=== PATIENT | female | born 1985 | race Caucasian/White ===

== ENCOUNTER 2016-08-29 09:26 | Outpatient (CLI) | payer MEDICAID ==
[~2016-08-29] VITALS: Ht 175.3 cm; Wt 103.0 kg
[~2016-08-29 09:26] MED LIST: ACHD5005 PO; ALPR0.254; BPR100T PO; CEFU500T PO; CLIN300C3 PO; CYCL10TA9 PO; HYDR-3720 PO; HYDR1TAB PO; IBP800T PO; KETO-22 PO; METR500T PO; NF-VYVAN20; ONDA-42 PO; ONDAN4ODT PO; PRM25T PO; TRM50T PO
[2016-08-29 09:30] VITALS: BP 128/67
--- OUTSIDE RECORDS SUMMARY | 2016-08-29 09:30 | XMS REPORT | Continuity of Care Document ---
Author Author [facility] Organization [facility] Address Unknown Phone Unavailable Care Team Providers Care Awning Erector Name Role Phone JASWINDER STATON MD PCP Insurance Providers Payer Name Policy Number Subscriber Name Relationship [facility] [id number] Minh Monroe 18 Self / Same As Patient Advance Directives Directive Response Recorded Date/Time Advance Directives No 08/02/16 5:00pm Health Care Power of Dry Chain Operator No 08/02/16 5:00pm Organ Donor Yes 08/02/16 5:00pm Resuscitation Status Full Code 08/02/16 5:00pm Chief Complaint and Reason for Visit Chief Complaint Abdominal/GI Problems Reason for Visit Urinary tract infection Problems Active Problems Medical Problem Onset Date Status Chin contusion Unknown Acute Chin contusion Unknown Acute Urinary tract infection Unknown Acute Medications Past Home Medications Medication Directions Ordered Status Ibuprofen 800 Mg Tab, 800 Mg Oral Three Times A Day 01/08/10 Discontinued Tramadol Hcl 50 Mg Tab, 50 Mg Oral Twice A Day as needed 01/08/10 Discontinued Cyclobenzaprine Hcl (Flexeril) 10 Mg Tablet, 1 Each Oral Q8hr Prn 12/04/10 Discontinued Acetaminophen/Hydrocodone Bitart 1 Each Tablet, 1 - 2 Each Oral Every 6 Hours as needed 12/04/10 Discontinued Bupropion Hcl 100 Mg Tablet, 1 Tab Oral Twice A Day 04/07/11 Discontinued Ondansetron Hcl 4 Mg Tab, 4 Mg Oral Every 4HRS as needed 05/24/11 Discontinued Promethazine Hcl 25 Mg Tablet, 1 Tab Oral Four Times Daily as needed Discontinued Metronidazole 500 Mg Tab, 1 Each Oral Three Times A Day 10/30/11 Discontinued Ondansetron Hcl 4 Mg Tab, 4 Mg Oral Every 4HRS 04/17/13 Discontinued Ketorolac Tromethamine 10 Mg Tablet, 10 Mg Oral Every 6 Hours as needed 04/17 Discontinued Acetaminophen/Hydrocodone Bitart 1 Each Tablet, 1 Tab Oral Every 4HRS as needed 05/05/13 Discontinued Acetaminophen/Hydrocodone Bitart 1 Each Tablet, 1 - 2 Each Oral Q4hr Prn Discontinued Alprazolam 0.25 Mg Tablet, 12/30/14 Discontinued Lisdexamfetamine Dimesylate 20 Mg Capsule, 12/30/14 Discontinued Acetaminophen/Hydrocodone Bitart ([place]) 1 Each Tablet, 0.5-1 Each Oral Q4- 6HR as needed for Pain 12/30/14 Discontinued Clindamycin Hcl 300 Mg Capsule, 1 Each Oral Give Every 6 Hr On Schedule 12/30 Discontinued Acetaminophen/Hydrocodone Bitart ([place]) 1 Each Tablet, 0.5-1 Each Oral Q4- 6HR as needed for Pain 12/30/14 Discontinued Cefuroxime Axetil 500 Mg Tablet, 500 Mg Oral Twice A Day 08/02/16 Discontinued Social History Social History Problem Response Recorded Date/Time Alcohol Use Occasionally Uses 12/30/2014 2:02pm Recreational Drug Use No 12/30/2014 2:02pm Recent Foreign Travel No 08/02/2016 4:50pm Recent Infectious Disease Exposure No 08/02/2016 4:50pm Smoking Status Current Everyday Smoker 08/02/2016 5:00pm Query Response Start Date Stop Date Smoking Status Current Everyday Smoker Hospital Discharge Instructions No hospital discharge instructions. Plan of Care Discharge Date 08/02/16 7:40pm Disposition 01 HOME, SELF-CARE Condition at Discharge Stable Instructions/Education Provided Urinary Tract Infection, Adult (DC) Prescriptions See Medication Section Referrals JASWINDER STATON MD - Primary Care Physician Additional Instructions/Education 1. Antibiotics as directed 2. Follow-up with your doctor next week 3.All discharge instructions reviewed with patient and/or family. Voiced understanding. Functional Status No functional status results. Allergies, Adverse Reactions, Alerts No known allergies. Immunizations No immunization records. Vital Signs Acute Vital Signs Vital Response Date/Time Temperature (Fahrenheit) 97.5 degrees F (97.6 - 99.5) 08/02/2016 4:50pm Temperature (Calculated Celsius) 36.11392 degrees C (36.4 - 37.5) 08/02/2016 4:50pm Pulse Rate (adult) 70 bpm (60 - 90) 08/02/2016 4:50pm Respiratory Rate 16 bpm (12 - 24) 08/02/2016 4:50pm O2 Sat by Pulse Oximetry 98 % (88 - 100) 08/02/2016 4:50pm Blood Pressure 127/92 mm Hg 08/02/2016 4:50pm Blood Pressure Mean 104 mm Hg 08/02/2016 4:50pm Pain Numeric Pain Scale 3 08/02/2016 4:50pm Height (Feet) 5 feet 08/02/2016 4:50pm Height (Inches) 9 inches 08/02/2016 4:50pm Height (Calculated Centimeters) 175.827068 cm 08/02/2016 4:50pm Weight (Pounds) 210 pounds 08/02/2016 4:50pm Weight (Calculated Kilograms) 95.799809 kilograms 08/02/2016 4:50pm Capillary Refill Capillary Refill Less Than 3 Seconds 08/02/2016 4:50pm Height 5 ft 9 in Weight 210 lb Body Mass Index 31.0 kg/m^2 Results Laboratory Results Test Name Result Units Flags Reference Collection Date/Time Result Date/ Time Comments White Blood Count 8.9 10^3/uL 4.3-11.0 08/02/2016 5:34pm 08/02/2016 5: 40pm Red Blood Count 3.82 10^6/uL L 4.35-5.85 08/02/2016 5:34pm 08/02/2016 5: 40pm Hemoglobin 11.9 G/DL 11.5-16.0 08/02/2016 5:34pm 08/02/2016 5:40pm Hematocrit 34 % L 35-52 08/02/2016 5:34pm 08/02/2016 5:40pm Mean Corpuscular Volume 90 FL 80-99 08/02/2016 5:34pm 08/02/2016 5: 40pm Mean Corpuscular Hemoglobin 31 PG 25-34 08/02/2016 5:34pm 08/02/2016 5: 40pm Mean Corpuscular Hemoglobin Concent 35 G/DL 32-36 08/02/2016 5:34pm 05/2016 5:40pm Red Cell Distribution Width 14.2 % 10.0-14.5 08/02/2016 5:34pm 2015 5:40pm Platelet Count 232 10^3/uL 130-400 08/02/2016 5:34pm 08/02/2016 5:40pm Mean Platelet Volume 10.4 FL 7.4-10.4 08/02/2016 5:34pm 08/02/2016 5: 40pm Neutrophils (%) (Auto) 68 % 42-75 08/02/2016 5:34pm 08/02/2016 5:40pm Lymphocytes (%) (Auto) 23 % 12-44 08/02/2016 5:34pm 08/02/2016 5:40pm Monocytes (%) (Auto) 8 % 0-12 08/02/2016 5:34pm 08/02/2016 5:40pm Eosinophils (%) (Auto) 1 % 0-10 08/02/2016 5:34pm 08/02/2016 5:40pm Basophils (%) (Auto) 0 % 0-10 08/02/2016 5:34pm 08/02/2016 5:40pm Neutrophils # (Auto) 6.0 X 10^3 1.8-7.8 08/02/2016 5:34pm 08/02/2016 5: 40pm Lymphocytes # (Auto) 2.1 X 10^3 1.0-4.0 08/02/2016 5:34pm 08/02/2016 5: 40pm Monocytes # (Auto) 0.7 X 10^3 0.0-1.0 08/02/2016 5:34pm 08/02/2016 5: 40pm Eosinophils # (Auto) 0.1 10^3/uL 0.0-0.3 08/02/2016 5:34pm 08/02/2016 5 :40pm Basophils # (Auto) 0.0 10^3/uL 0.0-0.1 08/02/2016 5:34pm 08/02/2016 5: 40pm Urine Color YELLOW 08/02/2016 5:25pm 08/02/2016 5:43pm Urine Clarity CLEAR 08/02/2016 5:25pm 08/02/2016 5:43pm Urine pH 7 5-9 08/02/2016 5:25pm 08/02/2016 5:43pm Urine Specific [place] 1.010 * 1.016-1.022 08/02/2016 5:25pm 2015 5:43pm Urine Protein NEGATIVE NEGATIVE 08/02/2016 5:pm 08/02/2016 5:43pm Urine Glucose (UA) NEGATIVE NEGATIVE 08/02/2016 5:25pm 08/02/2016 5: 43pm Urine RBC (Auto) 1+ * NEGATIVE 08/02/2016 5:pm 08/02/2016 5:43pm Urine Ketones NEGATIVE NEGATIVE 08/02/2016 5:25pm 08/02/2016 5:43pm Urine Nitrite NEGATIVE NEGATIVE 08/02/2016 5:pm 08/02/2016 5:43pm Urine Bilirubin NEGATIVE NEGATIVE 08/02/2016 5:pm 08/02/2016 5: 43pm Urine Urobilinogen NORMAL MG/DL NORMAL 08/02/2016 5:25pm 08/02/2016 5: 43pm Urine Leukocyte Esterase 1+ * NEGATIVE 08/02/2016 5:pm 08/02/2016 5: 43pm Urine RBC NONE /HPF 08/02/2016 5:pm 08/02/2016 5:43pm Urine WBC 10-25 /HPF * 08/02/2016 5:25pm 08/02/2016 5:43pm Urine Bacteria FEW /HPF * 08/02/2016 5:pm 08/02/2016 5:43pm Urine Squamous Epithelial Cells 5-10 /HPF 08/02/2016 5:25pm 2015 5:43pm Urine Crystals NONE /LPF 08/02/2016 5:25pm 08/02/2016 5:43pm Urine Casts NONE /LPF 08/02/2016 5:25pm 08/02/2016 5:43pm Urine Mucus NEGATIVE /LPF 08/02/2016 5:25pm 08/02/2016 5:43pm Urine Culture Indicated YES 08/02/2016 5:25pm 08/02/2016 5:43pm Procedures No known history of procedures. Encounters Encounter Location Arrival/Admit Date Discharge/Depart Date Attending Provider Departed Emergency Room [facility] 08/02/16 4:35pm 08/02 7:40pm ROMINA LEDESMA APRN Recent Diagnosis
[2016-08-29] MEDS ORDERED: ONDANSETRON 4 MG/2 ML (SDV) Z0FRAN IVP ONE (10:00)
[2016-08-29] MEDS ORDERED: D5 LR IV SOLUTION 1,000 ML IV SCH (10:00)
[2016-08-29 10:01] LABS: BASOPHILS % (AUTO) 0 % (0-10); BILIRUBIN,URINE NEGATIVE (NEGATIVE); EOSINOPHILS # (AUTO) 0.1 10^3/uL (0.0-0.3); EOSINOPHILS % (AUTO) 1 % (0-10); KETONES,URINE NEGATIVE (NEGATIVE); LEUKOCYTE ESTERASE ,URINE NEGATIVE (NEGATIVE); LYMPHOCYTES # (AUTO) 1.6 X 10^3 (1.0-4.0); LYMPHOCYTES % (AUTO) 16 % (12-44); MEAN CORPUSCULAR HEMOGLOBIN 31 PG (25-34); MEAN CORPUSCULAR HGB CONC 34 G/DL (32-36); MEAN CORPUSCULAR VOLUME 91 FL (80-99); MEAN PLATELET VOLUME 11.2 FL (7.4-10.4); MONOCYTES # (AUTO) 0.8 X 10^3 (0.0-1.0); MONOCYTES % (AUTO) 9 % (0-12); NEUTROPHILS % (AUTO) 74 % (42-75); NITRITE,URINE NEGATIVE (NEGATIVE); PH,URINE 8 (5-9); PLATELET COUNT 238 10^3/uL (130-400); PROTEIN,URINE NEGATIVE (NEGATIVE); RED BLOOD COUNT 3.61 10^6/uL (4.35-5.85); RED CELL DISTRIBUTION WIDTH 14.4 % (10.0-14.5); UROBILINOGEN,URINE NORMAL (NORMAL); WHITE BLOOD COUNT 9.5 10^3/uL (4.3-11.0)
[2016-08-29 10:13] LABS: ALANINE AMINOTRANSFERASE 10 U/L (0-55); ALBUMIN 3.1 G/DL (3.2-4.5); ANION GAP 9 MMOL/L (5-14); ASPARTATE AMINO TRANSFERASE 19 U/L (5-34); BILIRUBIN,TOTAL 0.2 MG/DL (0.1-1.0); BLOOD UREA NITROGEN 4 MG/DL (7-18); BUN/CREATININE RATIO 8; CARBON DIOXIDE 16 MMOL/L (21-32); CHLORIDE 109 MMOL/L (98-107); CREATININE SERUM 0.52 MG/DL (0.60-1.30); GFR ESTIMATED > 60; GLUCOSE 89 MG/DL (70-105); POTASSIUM 4.1 MMOL/L (3.6-5.0); SODIUM 134 MMOL/L (135-145); TOTAL PROTEIN 5.7 G/DL (6.4-8.2)
[2016-08-29 10:25] LABS: WBC,URINE RARE /HPF
--- NOTE | 2016-09-01 12:26 | Physician Query-Final Dx ---
ABELARDO MCKEE 09/01/16 1226: Clinic Account Progress/Dx Physician Query: Please give diagnosis Date of Service Aug 29, 2016 at 09:26 JASWINDER STATON MD 09/01/16 1659: Clinic Account Progress/Dx DIAGNOSIS: Diagnosis hyperemesis / dehydration ABELARDO MCKEE Sep 01, 2016 12:26 JASWINDER STATON MD Sep 01, 2016 16:59
[2016-11-24] MEDS ORDERED: OXYC-465 PO (07:51)
[2016-11-24] MEDS ORDERED: CEPH250C PO (07:51)
[2016-11-24] MEDS ORDERED: DOCU100C37 PO (07:51)
[2016-11-24] MEDS ORDERED: IBUP-1780 PO (07:51)
== END 2016-08-29 11:30 | disposition home or self-care (01) ==
LOC: WSo 09:26 → LDRP 09:27 → WSo 11:30
PROVIDERS: ATTEND Obstetrics & Gynecology
DX: O21.1 Hyperemesis gravidarum with metabolic disturbance (principal)
CPT/HCPCS: 36415; 80053; 81000; 85025

== ENCOUNTER 2016-09-17 20:15 | Outpatient (CLI) | payer MEDICAID ==
[~2016-09-17] VITALS: Ht 175.3 cm; Wt 105.8 kg
--- OUTSIDE RECORDS SUMMARY | 2016-09-17 20:19 | XMS REPORT | Continuity of Care Document ---
Author Author [facility] Organization [facility] Address Unknown Phone Unavailable Care Team Providers Care Assurance Specialist Name Role Phone JASWINDER STATON MD PCP Insurance Providers Payer Name Policy Number Subscriber Name Relationship [facility] [id number] Minh Monroe 17 Self / Same As Patient Advance Directives Directive Response Recorded Date/Time Advance Directives No 08/02/16 5:00pm Health Care Power of Farm Instructor No 08/02/16 5:00pm Organ Donor Yes 08/02/16 [...] 20 Mg Capsule, 12/30/14 Discontinued Acetaminophen/Hydrocodone Bitart ([place]) 1 Each Tablet, 0.5-1 Each Oral Q4- 6HR as needed for Pain 12/30/14 Discontinued Clindamycin Hcl 300 Mg Capsule, 1 Each Oral Give Every 6 Hr On Schedule 12/30 Discontinued Acetaminophen/Hydrocodone Bitart ([place]) 1 Each Tablet, 0.5-1 Each Oral Q4- [...] - 99.5) 08/02/2016 4:50pm Temperature (Calculated Celsius) 36.19000 degrees C (36.4 - 37.5) 08/02/2016 4:50pm [...] 9 inches 08/02/2016 4:50pm Height (Calculated Centimeters) 175.452694 cm 08/02/2016 4:50pm Weight (Pounds) 210 pounds 08/02/2016 4:50pm Weight (Calculated Kilograms) 95.459167 kilograms 08/02/2016 4:50pm Capillary Refill Capillary Refill [...] 5-9 08/02/2016 5:25pm 08/02/2016 5:43pm Urine Specific [place] 1.010 * 1.016-1.022 08/02/2016 5:25pm 2015 5:43pm [...] Date Attending Provider Departed Emergency Room [facility] 08/02/16 4:35pm 08/02 7:40pm ROMINA LEDESMA APRN Recent Diagnosis
[2016-09-17 20:39] VITALS: BP 116/55
[2016-09-17] MEDS ORDERED: PREN1TAB86 PO (21:02)
[2016-09-17] MEDS ORDERED: OMEP20TA33 PO (21:02)
[2016-09-17] MEDS ORDERED: FOLI1TAB24 PO (21:02)
[2016-09-17 21:57] VITALS: BP 116/55
--- NOTE | 2016-09-18 09:05 | Physician Query-Final Dx ---
KATHI LESLIE 09/18/16 0905: Clinic Account Progress/Dx Physician Query: Please give diagnosis Date of Service Sep 17, 2016 at 20:15 JASWINDER STATON MD 09/18/16 1306: Clinic Account Progress/Dx DIAGNOSIS: Diagnosis pulse labor in a twin at 26 weeks gestation KATHI LESLIE Sep 18, 2016 09:05 JASWINDER STATON MD Sep 18, 2016 13:06
== END 2016-09-17 21:57 | disposition home or self-care (01) ==
LOC: WSo 20:15 → LDRP 20:15 → WSo 21:57
PROVIDERS: ATTEND Obstetrics & Gynecology
DX: O30.002 Twin pregnancy, unspecified number of placenta and unspecified number of amniotic sacs, second trimester (principal); Z3A.26 26 weeks gestation of pregnancy
CPT/HCPCS: 90471; 99213

== ENCOUNTER 2016-10-06 21:46 | Outpatient (CLI) | payer MEDICAID ==
[~2016-10-06] VITALS: Ht 175.3 cm; Wt 109.0 kg
[~2016-10-06 21:46] MED LIST changes: +FOLI1TAB24 PO; +OMEP20TA33 PO; +PREN1TAB86 PO
--- OUTSIDE RECORDS SUMMARY | 2016-10-06 21:50 | XMS REPORT | Continuity of Care Document ---
Author Author [facility] Organization [facility] Address Unknown Phone Unavailable Care Team Providers Care Motion Picture Narrator Name Role Phone JASWINDER STATON MD PCP Insurance Providers Payer Name Policy Number Subscriber Name Relationship [facility] [id number] Minh Monroe 18 Self / Same As Patient Advance Directives Directive Response Recorded Date/Time Advance Directives No 08/02/16 5:00pm Health Care Power of Retail Associate Manager Bilingual No 08/02/16 5:00pm Organ Donor Yes 08/02/16 [...] 20 Mg Capsule, 12/30/14 Discontinued Acetaminophen/Hydrocodone Bitart ([place]) 1 Each Tablet, 0.5-1 Each Oral Q4- 6HR as needed for Pain 12/30/14 Discontinued Clindamycin Hcl 300 Mg Capsule, 1 Each Oral Give Every 6 Hr On Schedule 12/30 Discontinued Acetaminophen/Hydrocodone Bitart ([place]) 1 Each Tablet, 0.5-1 Each Oral Q4- [...] - 99.5) 08/02/2016 4:50pm Temperature (Calculated Celsius) 36.51958 degrees C (36.4 - 37.5) 08/02/2016 4:50pm [...] 9 inches 08/02/2016 4:50pm Height (Calculated Centimeters) 175.630214 cm 08/02/2016 4:50pm Weight (Pounds) 210 pounds 08/02/2016 4:50pm Weight (Calculated Kilograms) 95.073552 kilograms 08/02/2016 4:50pm Capillary Refill Capillary Refill [...] 5-9 08/02/2016 5:25pm 08/02/2016 5:43pm Urine Specific [place] 1.010 * 1.016-1.022 08/02/2016 5:25pm 2015 5:43pm [...] Date Attending Provider Departed Emergency Room [facility] 08/02/16 4:35pm 08/02 7:40pm ROMINA LEDESMA APRN Recent Diagnosis
[2016-10-06 22:02] VITALS: BP 120/61
[2016-10-06] MEDS ORDERED: D5 LR IV SOLUTION 1,000 ML IV ONE (22:30)
[2016-10-06] MEDS ORDERED: NITROFURANTOIN 100 MG (MACROBID) CAPSULE PO ONE (22:30)
[2016-10-06 22:52] LABS: BILIRUBIN,URINE NEGATIVE (NEGATIVE); KETONES,URINE NEGATIVE (NEGATIVE); LEUKOCYTE ESTERASE ,URINE 3+ (NEGATIVE); NITRITE,URINE NEGATIVE (NEGATIVE); PH,URINE 7 (5-9); PROTEIN,URINE 1+ (NEGATIVE); UROBILINOGEN,URINE NORMAL (NORMAL)
[2016-10-06 22:53] LABS: RENAL EPITHELIAL CELLS,URINE RARE /HPF; WBC,URINE 25-50 /HPF
[2016-10-07 00:13] VITALS: BP 117/63
[2016-10-07] MEDS ORDERED: NITR-65 PO (00:35)
--- NOTE | 2016-10-07 11:36 | Physician Query-Final Dx ---
KATHI LESLIE 10/07/16 1136: Clinic Account Progress/Dx Physician Query: Please give diagnosis Date of Service Oct 06, 2016 at 21:46 JASWINDER STATON MD 10/07/16 1322: Clinic Account Progress/Dx DIAGNOSIS: Diagnosis false labor KATHI LESLIE Oct 07, 2016 11:36 JASWINDER STATON MD Oct 07, 2016 13:22
== END 2016-10-07 00:42 | disposition home or self-care (01) ==
LOC: WSo 21:46 → LDRP 21:46 → WSo 10-07 00:42
PROVIDERS: ATTEND Obstetrics & Gynecology
DX: O47.02 False labor before 37 completed weeks of gestation, second trimester (principal); Z3A.29 29 weeks gestation of pregnancy
CPT/HCPCS: 81000; 87088; 96360; 96361; 99214

== ENCOUNTER 2016-10-31 18:45 | Outpatient (CLI) | payer MEDICAID ==
[~2016-10-31] VITALS: Ht 172.7 cm; Wt 116.1 kg
[~2016-10-31 18:45] MED LIST changes: +NITR-65 PO
--- OUTSIDE RECORDS SUMMARY | 2016-10-31 18:49 | XMS REPORT | Continuity of Care Document ---
Author Author [facility] Organization [facility] Address Unknown Phone Unavailable Care Team Providers Care Rn Diabetes Name Role Phone JASWINEDR STATON MD PCP Insurance Providers Payer Name Policy Number Subscriber Name Relationship [facility] [id number] Minh Monroe 17 Self / Same As Patient Advance Directives Directive Response Recorded Date/Time Advance Directives No 08/02/16 5:00pm Health Care Power of Nail Technician Teacher No 08/02/16 5:00pm Organ Donor Yes 08/02/16 [...] 20 Mg Capsule, 12/30/14 Discontinued Acetaminophen/Hydrocodone Bitart ([place]) 1 Each Tablet, 0.5-1 Each Oral Q4- 6HR as needed for Pain 12/30/14 Discontinued Clindamycin Hcl 300 Mg Capsule, 1 Each Oral Give Every 6 Hr On Schedule 12/30 Discontinued Acetaminophen/Hydrocodone Bitart ([place]) 1 Each Tablet, 0.5-1 Each Oral Q4- [...] - 99.5) 08/02/2016 4:50pm Temperature (Calculated Celsius) 36.63923 degrees C (36.4 - 37.5) 08/02/2016 4:50pm [...] 9 inches 08/02/2016 4:50pm Height (Calculated Centimeters) 175.629739 cm 08/02/2016 4:50pm Weight (Pounds) 210 pounds 08/02/2016 4:50pm Weight (Calculated Kilograms) 95.685103 kilograms 08/02/2016 4:50pm Capillary Refill Capillary Refill [...] 5-9 08/02/2016 5:25pm 08/02/2016 5:43pm Urine Specific [place] 1.010 * 1.016-1.022 08/02/2016 5:25pm 2015 5:43pm [...] Date Attending Provider Departed Emergency Room [facility] 08/02/16 4:35pm 08/02 7:40pm ROMINA LEDESMA APRN Recent Diagnosis
[2016-10-31 18:50] VITALS: BP 123/77
--- NOTE | 2016-11-03 10:25 | Physician Query-Final Dx ---
ABELARDO MCKEE 11/03/16 1025: Clinic Account Progress/Dx Physician Query: Please give diagnosis Date of Service Oct 31, 2016 at 18:45 JASWINDER STATON MD 11/03/16 1242: Clinic Account Progress/Dx DIAGNOSIS: Diagnosis false labor RYLEE,ABELARDO Nov 03, 2016 10:25 JASWINDER STATON MD Nov 03, 2016 12:42
[2016-11-24] MEDS ORDERED: CEPH250C PO (07:51)
[2016-11-24] MEDS ORDERED: DOCU100C37 PO (07:51)
[2016-11-24] MEDS ORDERED: IBUP-1780 PO (07:51)
[2016-11-24] MEDS ORDERED: OXYC-465 PO (07:51)
== END 2016-10-31 20:45 | disposition home or self-care (01) ==
LOC: LDRP 18:45 → WSo 18:45
PROVIDERS: ATTEND Obstetrics & Gynecology
DX: O47.03 False labor before 37 completed weeks of gestation, third trimester (principal); O30.003 Twin pregnancy, unspecified number of placenta and unspecified number of amniotic sacs, third trimester; Z3A.32 32 weeks gestation of pregnancy
CPT/HCPCS: 99213

== ENCOUNTER 2016-11-13 19:27 | Outpatient (CLI) | payer MEDICAID ==
[~2016-11-13] VITALS: Ht 172.7 cm; Wt 115.7 kg
[2016-11-13 19:44] VITALS: BP 115/67
[2016-11-13 19:56] LABS: BILIRUBIN,URINE NEGATIVE (NEGATIVE); KETONES,URINE NEGATIVE (NEGATIVE); LEUKOCYTE ESTERASE ,URINE 1+ (NEGATIVE); NITRITE,URINE NEGATIVE (NEGATIVE); PH,URINE 6.5 (5-9); PROTEIN,URINE NEGATIVE (NEGATIVE); UROBILINOGEN,URINE NORMAL (NORMAL)
[2016-11-13] MEDS ORDERED: BETAMETHASONE ACE/NA PHOS 6 MG/ML (CELESTONE SOLUSPAN) IM SCH (21:00)
--- NOTE | 2016-11-14 08:01 | Physician Query-Final Dx ---
ABELARDO MCKEE 11/14/16 0801: Clinic Account Progress/Dx Physician Query: Please give diagnosis Date of Service Nov 13, 2016 at 19:27 LORENZA ANGELES DO 11/14/16 0828: Clinic Account Progress/Dx DIAGNOSIS: Diagnosis 35 week IUP Uterine cramping ABELARDO MCKEE Nov 14, 2016 08:01 LORENZA ANGELES DO Nov 14, 2016 08:28
[2016-11-24] MEDS ORDERED: DOCU100C37 PO (07:51)
[2016-11-24] MEDS ORDERED: IBUP-1780 PO (07:51)
[2016-11-24] MEDS ORDERED: CEPH250C PO (07:51)
[2016-11-24] MEDS ORDERED: OXYC-465 PO (07:51)
== END 2016-11-13 22:10 | disposition home or self-care (01) ==
LOC: DELPENDDIS → LDRP 19:27 → WSo 19:27
PROVIDERS: ATTEND Obstetrics & Gynecology
DX: O47.03 False labor before 37 completed weeks of gestation, third trimester (principal); O30.003 Twin pregnancy, unspecified number of placenta and unspecified number of amniotic sacs, third trimester; Z3A.35 35 weeks gestation of pregnancy
CPT/HCPCS: 81000; 96372; 99213

== ENCOUNTER 2016-11-14 20:07 | Outpatient (CLI) | payer MEDICAID ==
[~2016-11-14] VITALS: Ht 172.7 cm; Wt 117.5 kg
[2016-11-14 20:25] VITALS: BP 119/63
[2016-11-14] MEDS ORDERED: BETAMETHASONE ACE/NA PHOS 6 MG/ML (CELESTONE SOLUSPAN) ONE (20:29)
[2016-11-14] MEDS ORDERED: BETAMETHASONE ACE/NA PHOS 6 MG/ML (CELESTONE SOLUSPAN) IM SCH ×2 (20:30→20:45)
--- NOTE | 2016-11-17 14:03 | Physician Query-Final Dx ---
ABELARDO MCKEE 11/17/16 1403: Clinic Account Progress/Dx Physician Query: Please give diagnosis Date of Service Nov 14, 2016 at 20:07 LORENZA ANGELES DO 11/17/16 1643: Clinic Account Progress/Dx DIAGNOSIS: Diagnosis 35 week twin Pelvic pressure 2nd BMZ injection ABELARDO MCKEE Nov 17, 2016 14:03 LORENZA ANGELES DO Nov 17, 2016 16:43
[2016-11-24] MEDS ORDERED: OXYC-465 PO (07:51)
[2016-11-24] MEDS ORDERED: IBUP-1780 PO (07:51)
[2016-11-24] MEDS ORDERED: CEPH250C PO (07:51)
[2016-11-24] MEDS ORDERED: DOCU100C37 PO (07:51)
== END 2016-11-14 20:57 | disposition home or self-care (01) ==
LOC: DELPENDDIS → WSo 20:07
PROVIDERS: ATTEND Obstetrics & Gynecology
DX: O30.003 Twin pregnancy, unspecified number of placenta and unspecified number of amniotic sacs, third trimester (principal); O99.89 Other specified diseases and conditions complicating pregnancy, childbirth and the puerperium; R10.2 Pelvic and perineal pain; Z3A.35 35 weeks gestation of pregnancy
CPT/HCPCS: 96372

== ENCOUNTER 2016-11-20 19:54 | Observation (INO) | payer MEDICAID ==
[~2016-11-20] VITALS: Ht 172.7 cm; Wt 115.2 kg
[2016-11-20 20:05] VITALS: BP 135/75
[2016-11-20 20:30] VITALS: BP 133/74
[2016-11-20 20:43] LABS: BILIRUBIN,URINE NEGATIVE (NEGATIVE); KETONES,URINE NEGATIVE (NEGATIVE); LEUKOCYTE ESTERASE ,URINE 1+ (NEGATIVE); NITRITE,URINE NEGATIVE (NEGATIVE); PH,URINE 6 (5-9); PROTEIN,URINE 2+ (NEGATIVE); UROBILINOGEN,URINE 1 MG/DL (NORMAL)
[2016-11-20 21:05] LABS: PROTEIN/CREATININE RATIO 0.25
[2016-11-20] MEDS ORDERED: D5 LR IV SOLUTION 1,000 ML IV ONE (21:35)
[2016-11-20] MEDS: D5 LR IV SOLUTION 1,000 ML IV SCH (22:07)
[2016-11-20 22:32] VITALS: BP 126/68
[2016-11-21] MEDS: D5 LR IV SOLUTION 1,000 ML IV SCH (05:59)
--- NOTE | 2016-11-21 07:49 | Discharge Instructions ---
Discharge Instructions Discharge Medications New, Converted or Re-Newed RX: Other Patient Instructions Patient Instructions: as directed Return to The Hospital For: as directed Activity & Diet Discharge Diet: No Restrictions Activity as Tolerated: Yes Orders-Post D/C & Referrals return to clinic as scheduled and return to clinic promptly for any signs symptoms and indications of labor JASWINDER STATON MD Nov 21, 2016 7:49 am
--- NOTE | 2016-11-21 07:52 | History & Physical ---
History and Physical Vital Signs Date Time Temp Pulse Resp B/P (MAP) Pulse Ox O2 Delivery O2 Flow Rate FiO2 11/20/16 22:32 96 18 126/68 Room Air 11/20/16 20:30 105 18 133/74 Room Air 11/20/16 20:05 97.1 110 18 135/75 Room Air this patient is a 31-year-old white female with an EDC of 4 3017 putting her at about 35-1/2 weeks gestation now. She is with Monocryl chorionic dye amniotic twins. Percent with complaint of pain and contractions. She was found to be joanna with some regularity. She was observed and hydrated through the night her contractions have now resolved. She denies rupture membranes or bleeding. She's had no other problems with this . Allergies are none Occasion her vitamins iron folic acid Zantac Medical social surgical obstetric histories are per the antepartum record HEENT exam is normal Neck supple no lymphadenopathy or thyromegaly Abdomen is gravid soft nontender nondistended Extremities show clubbing cyanosis. There is no Homans sign. Pelvic exam per the nurse shows a cervix is maybe 1 cm and thick and has shown no change release manager the period of observation. signs are stable. Patient is afebrile. Assessment and plan late at 35-1/2 weeks gestation with monochorionic diamniotic twins as patient's contractions have resolved we will allow discharge home with follow up in clinic. labor with twins at 35-1/2 weeks gestation Allergies and Home Medications Allergies Coded Allergies: No Known Drug Allergies (Verified , 11/14/16) Home Medications Folic Acid 1 Mg Tablet, 1 MG PO DAILY, (Reported) Omeprazole Magnesium 20 Mg Tablet., 20 MG PO DAILY, (Reported) Vit W-Ca,Fe,FA(<1 mg) 1 Each Tablet, 1 EACH PO DAILY, (Reported) JASWINDER STATON MD Nov 21, 2016 7:52 am
--- OUTSIDE RECORDS SUMMARY | 2016-12-14 07:21 | XMS REPORT ---
Author Author PERLITA LUGO Organization [employer] Address Unknown Phone Unavailable Care Team Providers Care Hydro Sprayer Operator Name Role Phone PERLITA LUGO CP Unavailable Allergies, Adverse Reactions, Alerts Substance Reaction Event Type N.K.D.A. Info Not Available Non Drug Allergy Problems Problem Type Condition Code Onset Dates Condition Status Problem Absence of menstruation 626.0 Active Problem Routine gynecological examination V72.31 Active Problem examination or test, negative result V72.41 Active Problem Screening examination for venereal disease V74.5 Active Problem Screening for malignant neoplasm of the cervix V76.2 Active Problem Chronic cholecystitis 575.11 Active Problem General counseling for prescription of oral contraceptives V25.01 Active Problem Counseling on substance use and abuse V65.42 Active Problem Other complications due to genitourinary device, implant, and graft 996.76 Active Problem Special screening examination, human papillomavirus [HPV] V73.81 Active Assessment Wound of left breast, initial encounter S21.002A Active Assessment Abscess of left leg L02.416 Active Problem Unspecified disorder of gallbladder 575.9 Active Medications Medication Code System Code Instructions Start Date End Date Status Dosage Bactrim DS [facility] [place] [address]-57 800-160 MG Orally Twice a day March 20, 2016 Mar 30, 2016 1 tablet Adderall [facility] [place] [address]-34 10 MG Orally Once a day 1 tablet in the morning Brintellix [facility] [place] [address]-65 10 MG Orally Once a day 1 tablet Xanax [facility] [place] [address]-71 0.5 MG Orally Three times a day 1 tablet Procedures Procedure Coding System Code Date Office Visit, Est Pt., Level 3 CPT-4 93166 March 20, 2016 CULTURE, BACTERIA, OTHER CPT-4 06776 March 20, 2016 Vital Signs Date/Time: March 20, 2016 Cardiac Monitoring Heart Rate 92 bpm Weight 202.6 lbs Height 68 in BMI 30.80 Index Blood Pressure Diastolic 86 mmHg Blood Pressure Systolic 122 mmHg Results No Known Results Summary Purpose [employer] Submission
--- OUTSIDE RECORDS SUMMARY | 2016-12-14 07:21 | XMS REPORT ---
Author Author KASH TOLBERT [employer] Address Unknown Phone Unavailable Care Team Providers Care Director Of Engineering Name Role Phone KASH TOLBERT CP Unavailable Allergies No Known Allergies Problems Problem Type Condition Code Onset Dates Condition Status Problem Absence of menstruation 626.0 Active Problem Routine gynecological examination V72.31 Active Problem examination or test, negative result V72.41 Active Assessment Encounter for test Z32.00 Active Problem Unspecified disorder of gallbladder 575.9 Active Problem Screening examination for venereal disease [...] screening examination, human papillomavirus [HPV] V73.81 Active Medications No Known Medications Procedures Procedure Coding System Code Date URINE TEST CPT-4 11342 Jul 08, 2016 Results Name Result Date Reference Range Unit Abnormality Flag TEST, URINE (IN HOUSE) ----RESULTS Positive [id number] ----Lot # [id number] ----Control + [id number] ----Exp date [id number] Summary Purpose [employer] Submission
--- OUTSIDE RECORDS SUMMARY | 2016-12-14 07:21 | XMS REPORT | Continuity of Care Document ---
Author Author Formerly [facility], Later [facility] Address Unknown Phone Unavailable Allergies Active Description Code Type Severity Reaction Onset Reported/Identified Relationship to Patient Clinical Status Yes No Known Drug Allergies [id number] Drug Allergy Unknown N/ A 11/14/2016 Medications Problems Date Dx Coded Attending Type Code Diagnosis Diagnosed By 12/26/2008 296.9 MOOD DIS NOS 12/26/2008 296.9 MOOD DIS NOS 12/26/2008 [employer], DANYELL A 296.9 MOOD DIS NOS 12/26/2008 [employer], DANYELL A 296.9 MOOD DIS NOS 12/28/2008 296.90 MOOD DISORDER 12/28/2008 300.00 ANXIETY UNSPEC 12/28/2008 311 DEPRESSIVE DISORDER NOS 12/28/2008 296.90 MOOD DISORDER 12/28/2008 300.00 ANXIETY UNSPEC 12/28/2008 311 DEPRESSIVE DISORDER NOS 12/28/2008 [employer], DANYELL A 296.90 MOOD DISORDER 12/28/2008 [employer], DANYELL A 300.00 ANXIETY UNSPEC 12/28/2008 [employer], DANYELL A 311 DEPRESSIVE DISORDER NOS 12/28/2008 [employer], DANYELL A 296.90 MOOD DISORDER 12/28/2008 [employer], DANYELL A 300.00 ANXIETY UNSPEC 12/28/2008 [employer], DANYELL A 311 DEPRESSIVE DISORDER NOS 12/18/2009 844.9 SPRAIN/STRAIN KNEE/LEG 12/18/2009 844.9 SPRAIN/STRAIN KNEE/LEG 12/18/2009 [employer], DANYELL A 844.9 SPRAIN/STRAIN KNEE/LEG 12/18/2009 [employer], DANYELL A 844.9 SPRAIN/STRAIN KNEE/LEG 01/02/2010 623.5 LEUKORRHEA, NOT SPECIFIED INFECTIVE 01/02/2010 V25.42 SURVEILLANCE OF PREVIOUSLY PRESCRIBED CONTRACEPTIVE METHODS , INTRAUTERINE CONTRACEPTIVE DEVICE 01/02/2010 623.5 LEUKORRHEA, NOT SPECIFIED INFECTIVE 01/02/2010 V25.42 SURVEILLANCE OF PREVIOUSLY PRESCRIBED CONTRACEPTIVE METHODS , INTRAUTERINE CONTRACEPTIVE DEVICE 01/02/2010 DANYELL ZHAO APRN 623.5 LEUKORRHEA, NOT SPECIFIED INFECTIVE 01/02/2010 DANYELL ZHAO APRN V25.42 SURVEILLANCE OF PREVIOUSLY PRESCRIBED CONTRACEPTIVE METHODS, INTRAUTERINE CONTRACEPTIVE DEVICE 01/02/2010 DANYELL ZHAO APRN 623.5 LEUKORRHEA, NOT SPECIFIED INFECTIVE 01/02/2010 DANYELL ZHAO APRN V25.42 SURVEILLANCE OF PREVIOUSLY PRESCRIBED CONTRACEPTIVE METHODS, INTRAUTERINE CONTRACEPTIVE DEVICE 01/08/2010 Ot 924.11 01/08/2010 Ot 959.7 01/08/2010 Ot E000.8 01/08/2010 Ot E029.2 01/08/2010 Ot E849.0 01/08/2010 Ot E917.9 01/15/2010 131.9 TRICHOMONIASIS UNSPECIFIED 01/15/2010 131.9 TRICHOMONIASIS UNSPECIFIED 01/15/2010 DANYELL ZHAO APRN 131.9 TRICHOMONIASIS UNSPECIFIED 01/15/2010 DANYELL ZHAO APRN 131.9 TRICHOMONIASIS UNSPECIFIED 12/04/2010 Ot 724.2 12/04/2010 Ot 959.19 12/04/2010 Ot E000.8 12/04/2010 Ot E013.5 12/04/2010 Ot E849.0 12/04/2010 Ot E927.8 03/04/2011 305.1 TOBACCO ABUSE 03/04/2011 305.1 TOBACCO ABUSE 03/04/2011 DANYELL ZHAO APRN A 305.1 TOBACCO ABUSE 03/04/2011 DANYELL ZHAO APRN 305.1 TOBACCO ABUSE 04/07/2011 Ot 922.31 BACK CONTUSION 04/07/2011 Ot 959.19 OTH INJURY OF OTHER SITES OF TRUNK 04/07/2011 Ot E000.8 OTHER EXTERNAL CAUSE STATUS 04/07/2011 Ot E849.0 ACCIDENT IN HOME 04/07/2011 Ot E888.9 FALL NOS 04/21/2011 296.32 MO DEPRESSIVE RECURRENT MODERATE 04/21/2011 296.32 MO DEPRESSIVE RECURRENT MODERATE 04/21/2011 SHA ZHAO APRNIDI Vinh 296.32 MO DEPRESSIVE RECURRENT MODERATE 04/21/2011 DANYELL ZHAO APRN 296.32 MO DEPRESSIVE RECURRENT MODERATE 05/24/2011 Ot 558.9 NONINF GASTROENTERIT NEC 05/24/2011 Ot 787.91 DIARRHEA 10/23/2011 Ot 558.9 NONINF GASTROENTERIT NEC 10/23/2011 Ot 787.03 VOMITING ALONE 04/17/2013 AARON RYAN DO Ot 574.20 CHOLELITHIASIS NOS 04/17/2013 AARON RYAN DO Ot 789.09 ABDOMINAL PAIN, OTHER SPECIFIED SITE 04/20/2013 575.9 GALLBLADDER DISEASE UNSPEC 04/20/2013 575.9 GALLBLADDER DISEASE UNSPEC 04/20/2013 DANYELL ZHAO APRN 575.9 GALLBLADDER DISEASE UNSPEC 04/20/2013 DANYELL ZHAO APRN 575.9 GALLBLADDER DISEASE UNSPEC 05/02/2013 575.11 CHOLECYSTITIS, CHRONIC 05/02/2013 DANYELL ZHAO APRN 575.11 CHOLECYSTITIS, CHRONIC 05/02/2013 DANYELL ZHAO APRN 575.11 CHOLECYSTITIS, CHRONIC 05/10/2013 ROB BROWN, DIXIE Mittal Ot 574.10 CHOLELITH W CHOLECYS NEC 07/14/2013 DANYELL ZHAO APRN 626.0 AMENORRHEA 07/14/2013 DANYELL ZHAO APRN V72.41 TEST NEGATIVE RESULT 07/14/2013 DANYELL ZHAO APRN 626.0 AMENORRHEA 07/14/2013 DANYELL ZHAO APRN V72.41 TEST NEGATIVE RESULT 10/31/2014 DANYELL ZHAO APRN 996.76 IUD COMPLICATION - OTHER 10/31/2014 DANYELL ZHAO APRN V25.01 CONTRACEPTION - ORAL CONTRACEPTION 10/31/2014 DANYELL ZHAO APRN V65.42 COUNSELING - SMOKING CESSATION 10/31/2014 DANYELL ZHAO APRN V72.31 RECREATIONAL THERAPY AIDE EXAM, ROUTINE 10/31/2014 DANYELL ZHAO APRN V73.81 HPV SCREENING 10/31/2014 DANYELL ZHAO APRN V74.5 STD SCREEN 10/31/2014 DANYELL ZHAO APRN V76.2 CERVICAL CANCER SCREENING (PAP SMEAR) 12/30/2014 ROB BROWN, DIXIE Mittal Ot 574.20 12/30/2014 ROB BROWN, DIXIE Mittal Ot V72.83 12/30/2014 DIXIE RIVAS MD Ot V74.8 12/30/2014 YAS DOAN Ot 873.63 TOOTH (BROKEN) (FRACTURED) (DUE TO TRAUM 12/30/2014 JOANNA DOANEN L Ot 920 CONTUSION FACE/SCALP/NCK 12/30/2014 SAVANAH DOANTCHEN L Ot E000.8 OTHER EXTERNAL CAUSE STATUS 12/30/2014 JOANNA DOANEN L Ot E885.9 FALL FROM SLIPPING, TRIPPING, OR STUMBLI 01/03/2015 YAS DOAN L Ot 873.63 01/03/2015 YAS ODAN Ot 920 01/03/2015 YAS DOAN Ot E000.8 01/03/2015 YAS DOAN Ot E885.9 08/02/2016 ROB BROWN, DIXIE Mittal Ot 574.20 CHOLELITHIASIS NOS 08/02/2016 ROB BROWN, DIXIE Mittal Ot V72.83 EXAM PRE-OPERATIVE NEC 08/02/2016 ROB BROWN, DIXIE Mittal Ot V74.8 SCREEN-BACTERIAL DIS NEC 08/02/2016 ROMINA LEDESMA APRN Ot O23.42 UNSP INFCT OF URINARY TRACT IN 08/02/2016 ROMINA LEDESMA APRN Ot R10.32 LEFT LOWER QUADRANT PAIN 08/02/2016 ROMINA LEDESMA APRN Ot Z3A.19 19 WEEKS GESTATION OF 08/04/2016 ROMINA LEDESMA APRN Ot O23.42 UNSP INFCT OF URINARY TRACT IN 08/04/2016 ROMINA LEDESMA APRN Ot R10.32 LEFT LOWER QUADRANT PAIN 08/04/2016 ROMINA LEDESMA APRN Ot Z3A.19 19 WEEKS GESTATION OF 08/29/2016 JASWINDER STATON MD, Ot 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 09/17/2016 JASWINDER STATON MD, Ot O30.002 TWIN PREG, UNSP NUM PLCNTA AMNIO SACS, 09/17/2016 BRIONNA MD, JASWINDER G Ot Z3A.26 26 WEEKS GESTATION OF 09/19/2016 JASWINDER STATON MD Ot O30.002 TWIN PREG, UNSP NUM PLCNTA AMNIO SACS, 09/19/2016 JASWINDER STATON MD, Ot Z3A.26 26 WEEKS GESTATION OF 09/23/2016 JASWINDER STATON MD, Ot O30.002 TWIN PREG, UNSP NUM PLCNTA AMNIO SACS, 09/23/2016 JASWINDER STATON MD, Ot Z3A.26 26 WEEKS GESTATION OF 10/07/2016 JASWINDER STATON MD, Ot O47.02 FALSE LABOR BEFORE 37 COMPLETED WEEKS OF 10/07/2016 JASWINDER STATON MD, Ot Z3A.29 29 WEEKS GESTATION OF 10/08/2016 JASWINDER STATON MD, Ot O47.02 FALSE LABOR BEFORE 37 COMPLETED WEEKS OF 10/08/2016 JASWINDER STATON MD, Ot3A.29 29 WEEKS GESTATION OF 10/31/2016 JASWINDER STATON MD Ot O30.003 TWIN PREG, UNSP NUM PLCNTA AMNIO SACS, 10/31/2016 JASWINDER STATON MD, Ot O47.03 FALSE LABOR BEFORE 37 COMPLETED WEEKS OF 10/31/2016 AJSWINDER STATON MD, Ot Z3A.32 32 WEEKS GESTATION OF 11/04/2016 JASWINDER STATON MD Ot O30.003 TWIN PREG, UNSP NUM PLCNTA AMNIO SACS, 11/04/2016 JASWINDER STATON MD, Ot O47.03 FALSE LABOR BEFORE 37 COMPLETED WEEKS OF 11/04/2016 JASWINDER STATON MD, Ot Z3A.32 32 WEEKS GESTATION OF 11/13/2016 FENECH DO, LORENZA S Ot O30.003 TWIN PREG, UNSP NUM PLCNTA AMNIO SACS , 11/13/2016 FENECH DO, LORENZA S Ot O47.03 FALSE LABOR BEFORE 37 COMPLETED WEEKS OF 11/13/2016 FENECH DO, LORENZA S Ot Z3A.35 35 WEEKS GESTATION OF 11/14/2016 FENECH DO, LORENZA S Ot O30.003 TWIN PREG, UNSP NUM PLCNTA AMNIO SACS , 11/14/2016 FENECH DO, LORENZA S Ot O99.89 OTH DISEASES AND CONDITIONS COMPL PREG/ C 11/14/2016 FENECH DO, LORENZA S Ot R10.2 PELVIC AND PERINEAL PAIN 11/14/2016 FENECH DO, LORENZA S Ot Z3A.35 35 WEEKS GESTATION OF 11/18/2016 FENECH DO, LORENZA S Ot O30.003 TWIN PREG, UNSP NUM PLCNTA AMNIO SACS , 11/18/2016 FENECH DO, LORENZA S Ot O99.89 OTH DISEASES AND CONDITIONS COMPL PREG/ C 11/18/2016 FENECH DO, LORENZA S Ot R10.2 PELVIC AND PERINEAL PAIN 11/18/2016 FENECH DO, LORENZA S Ot Z3A.35 35 WEEKS GESTATION OF 11/21/2016 JASWINDER STATON MD, Ot 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.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 , MONOCHORIONIC/ DIAMNIOTIC 11/21/2016 JASWINDER STATON MD, Ot O60.03 LABOR WITHOUT DELIVERY, THIRD TR 11/21/2016 JASWINDER STATON MD, Ot3A.35 35 WEEKS GESTATION OF 11/24/2016 JASWINDER STATON MD, Ot O30.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 TWIN , MONOCHORIONIC/ DIAMNIOTIC 11/24/2016 JASWINDER STATON MD, Ot O34.211 MATERN CARE FOR LOW TRANSVERSE SCAR FROM 11/24/2016 JASWINDER STATON MD, Ot O60.14X0 LABOR THIRD TRI W DELIVE 11/24/2016 JASWINDER STATON MD, Ot Z23 ENCOUNTER FOR IMMUNIZATION 11/24/2016 JASWINDER STATON MD, Ot Z37.0 SINGLE LIVE 11/24/2016 JASWINDER STATON MD, Ot Z3A.36 36 WEEKS GESTATION OF 11/25/2016 JASWINDER STATON MD, Ot O30.033 TWIN , MONOCHORIONIC/ DIAMNIOTIC 11/25/2016 JASWINDER STATON MD, Ot O60.03 LABOR WITHOUT DELIVERY, THIRD TR 11/25/2016 JASWINDER STATON MD, Ot3A.36 36 WEEKS GESTATION OF Procedures Code Description [place] [address] US PELVIC COMPL (REFLEX CPT- 27126) 07/14/2013 13757 URINE TEST (IN-HOUSE) 07/14/2013 [id number] EXTRACTION OF POC, LOW CERVICAL, OPEN AP 11/22/2016 Results Test Result Range Complete urinalysis with reflex to culture - 08/02/16 17:25 Urine color determination YELLOW NRG Urine clarity determination CLEAR NRG Urine pH measurement by test strip 7 5- 9 Specific gravity of urine by test strip 1.010 1.016-1.022 Urine protein assay by test strip, semi-quantitative NEGATIVE NEGATIVE Urine glucose detection by automated test strip NEGATIVE NEGATIVE Erythrocytes detection in urine sediment by light microscopy 1+ NEGATIVE Urine ketones detection by automated test strip NEGATIVE NEGATIVE Urine nitrite detection by test strip NEGATIVE NEGATIVE Urine total bilirubin detection by test strip NEGATIVE NEGATIVE Urine urobilinogen measurement by automated test strip (mass/volume) NORMAL NORMAL Urine leukocyte esterase detection by dipstick 1+ NEGATIVE Automated urine sediment erythrocyte count by microscopy (number/high power field) NONE NRG Automated urine sediment leukocyte count by microscopy (number/high power field ) [HPF] NRG Bacteria detection in urine sediment by light microscopy FEW NRG Squamous epithelial cells detection in urine sediment by light microscopy 5-10 NRG Crystals detection in urine sediment by light microscopy NONE NRG Casts detection in urine sediment by light microscopy NONE NRG Mucus detection in urine sediment by light microscopy NEGATIVE NRG Complete urinalysis with reflex to culture YES NRG Bacterial urine culture - 08/02/16 17:25 URINE CULTURE RESULTS <10,000/ML NRG Complete blood count (CBC) with automated white blood cell (WBC) differential - 08/02/16 17:34 Blood leukocytes automated count (number/volume) 8.9 10*3/ uL 4.3-11.0 Blood erythrocytes automated count (number/volume) 3.82 10*6 /uL 4.35-5.85 Venous blood hemoglobin measurement (mass/volume) 11.9 g/dL 11.5-16.0 Blood hematocrit (volume fraction) 34 % 35-52 Automated erythrocyte mean corpuscular volume 90 [foz_us] 80-99 Automated erythrocyte mean corpuscular hemoglobin (mass per erythrocyte) 31 pg 25-34 Automated erythrocyte mean corpuscular hemoglobin concentration measurement ( mass/volume) 35 g/dL 32-36 Automated erythrocyte distribution width ratio 14.2 % 10.0-14.5 Automated blood platelet count (count/volume) 232 10*3/uL 130-400 Automated blood platelet mean volume measurement 10.4 [foz_ us] 7.4-10.4 Automated blood neutrophils/100 leukocytes 68 % 42-75 Automated blood lymphocytes/100 leukocytes 23 % 12-44 Blood monocytes/100 leukocytes 8 % 0-12 Automated blood eosinophils/100 leukocytes 1 % 0-10 Automated blood basophils/100 leukocytes 0 % 0-10 Blood neutrophils automated count (number/volume) 6.0 10*3 1.8-7.8 Blood lymphocytes automated count (number/volume) 2.1 10*3 1.0-4.0 Blood monocytes automated count (number/volume) 0.7 10*3 0.0-1.0 Automated eosinophil count 0.1 10*3/uL 0.0-0.3 Automated blood basophil count (count/volume) 0.0 10*3/uL 0.0-0.1 Serum or plasma choriogonadotropin measurement (units/volume) - 08/02/16 17:34 Serum or plasma choriogonadotropin measurement (units/volume) 83113 m[iU]/mL <5 Microscopic examination by wet preparation - 08/02/16 17:59 WET PREP RESULTS 08/02/16 18:20 BY [facility] Complete blood count (CBC) with automated white blood cell (WBC) differential - 08/29/16 09:40 Blood leukocytes automated count (number/volume) 9.5 10*3/ uL 4.3-11.0 Blood erythrocytes automated count (number/volume) 3.61 10*6 /uL 4.35-5.85 Venous blood hemoglobin measurement (mass/volume) 11.3 g/dL 11.5-16.0 Blood hematocrit (volume fraction) 33 % 35-52 Automated erythrocyte mean corpuscular volume 91 [foz_us] 80-99 Automated erythrocyte mean corpuscular hemoglobin (mass per erythrocyte) 31 pg 25-34 Automated erythrocyte mean corpuscular hemoglobin concentration measurement ( mass/volume) 34 g/dL 32-36 Automated erythrocyte distribution width ratio 14.4 % 10.0-14.5 Automated blood platelet count (count/volume) 238 10*3/uL 130-400 Automated blood platelet mean volume measurement 11.2 [foz_ us] 7.4-10.4 Automated blood neutrophils/100 leukocytes 74 % 42-75 Automated blood lymphocytes/100 leukocytes 16 % 12-44 Blood monocytes/100 leukocytes 9 % 0-12 Automated blood eosinophils/100 leukocytes 1 % 0-10 Automated blood basophils/100 leukocytes 0 % 0-10 Blood neutrophils automated count (number/volume) 7.0 10*3 1.8-7.8 Blood lymphocytes automated count (number/volume) 1.6 10*3 1.0-4.0 Blood monocytes automated count (number/volume) 0.8 10*3 0.0-1.0 Automated eosinophil count 0.1 10*3/uL 0.0-0.3 Automated blood basophil count (count/volume) 0.0 10*3/uL 0.0-0.1 Comprehensive metabolic panel - 08/29/16 09:40 Serum or plasma sodium measurement (moles/volume) 134 mmol/ L 135-145 Serum or plasma potassium measurement (moles/volume) 4.1 mmol/L 3.6-5.0 Serum or plasma chloride measurement (moles/volume) 109 mmol /L 98-107 Carbon dioxide 16 mmol/L 21-32 Serum or plasma anion gap determination (moles/volume) 9 mmol/L 5-14 Serum or plasma urea nitrogen measurement (mass/volume) 4 mg /dL 7-18 Serum or plasma creatinine measurement (mass/volume) 0.52 mg /dL 0.60-1.30 Serum or plasma urea nitrogen/creatinine mass ratio 8 NRG Serum or plasma creatinine measurement with calculation of estimated glomerular filtration rate > NRG Serum or plasma glucose measurement (mass/volume) 89 mg/dL 70-105 Serum or plasma calcium measurement (mass/volume) 8.0 mg/dL 8.5-10.1 Serum or plasma total bilirubin measurement (mass/volume) 0.2 mg/dL 0.1-1.0 Serum or plasma alkaline phosphatase measurement (enzymatic activity/volume) 80 U/L 40-136 Serum or plasma aspartate aminotransferase measurement (enzymatic activity/ volume) 19 U/L 5-34 Serum or plasma alanine aminotransferase measurement (enzymatic activity/volume ) 10 U/L 0-55 Serum or plasma protein measurement (mass/volume) 5.7 g/dL 6.4-8.2 Serum or plasma albumin measurement (mass/volume) 3.1 g/dL 3.2-4.5 Complete urinalysis with reflex to culture - 08/29/16 09:40 Urine color determination YELLOW NRG Urine clarity determination CLEAR NRG Urine pH measurement by test strip 8 5- 9 Specific gravity of urine by test strip 1.010 1.016-1.022 Urine protein assay by test strip, semi-quantitative NEGATIVE NEGATIVE Urine glucose detection by automated test strip NEGATIVE NEGATIVE Erythrocytes detection in urine sediment by light microscopy NEGATIVE NEGATIVE Urine ketones detection by automated test strip NEGATIVE NEGATIVE Urine nitrite detection by test strip NEGATIVE NEGATIVE Urine total bilirubin detection by test strip NEGATIVE NEGATIVE Urine urobilinogen measurement by automated test strip (mass/volume) NORMAL NORMAL Urine leukocyte esterase detection by dipstick NEGATIVE NEGATIVE Automated urine sediment erythrocyte count by microscopy (number/high power field) NONE NRG Automated urine sediment leukocyte count by microscopy (number/high power field ) RARE NRG Bacteria detection in urine sediment by light microscopy NEGATIVE NRG Crystals detection in urine sediment by light microscopy PRESENT NRG Casts detection in urine sediment by light microscopy NONE NRG Mucus detection in urine sediment by light microscopy SMALL NRG Complete urinalysis with reflex to culture NO NRG Amorphous sediment detection in urine sediment by light microscopy FEW JOHN PHOSPHATE NRG Complete urinalysis with reflex to culture - 10/06/16 21:55 Urine color determination YELLOW NRG Urine clarity determination CLEAR NRG Urine pH measurement by test strip 7 5- 9 Specific gravity of urine by test strip 1.010 1.016-1.022 Urine protein assay by test strip, semi-quantitative 1+ NEGATIVE Urine glucose detection by automated test strip NEGATIVE NEGATIVE Erythrocytes detection in urine sediment by light microscopy NEGATIVE NEGATIVE Urine ketones detection by automated test strip NEGATIVE NEGATIVE Urine nitrite detection by test strip NEGATIVE NEGATIVE Urine total bilirubin detection by test strip NEGATIVE NEGATIVE Urine urobilinogen measurement by automated test strip (mass/volume) NORMAL NORMAL Urine leukocyte esterase detection by dipstick 3+ NEGATIVE Automated urine sediment erythrocyte count by microscopy (number/high power field) NONE NRG Automated urine sediment leukocyte count by microscopy (number/high power field ) [HPF] NRG Bacteria detection in urine sediment by light microscopy MODERATE NRG Squamous epithelial cells detection in urine sediment by light microscopy 5-10 NRG Crystals detection in urine sediment by light microscopy NONE NRG Casts detection in urine sediment by light microscopy NONE NRG Mucus detection in urine sediment by light microscopy NEGATIVE NRG Complete urinalysis with reflex to culture YES NRG Renal epithelial cells detection in urine sediment by light microscopy RARE NRG Bacterial urine culture - 10/06/16 21:55 URINE CULTURE RESULTS <10,000/ML NRG Complete urinalysis with reflex to culture - 11/13/16 19:45 Urine color determination YELLOW NRG Urine clarity determination SLIGHTLY CLOUDY NRG Urine pH measurement by test strip 6.5 5 -9 Specific gravity of urine by test strip 1.015 1.016-1.022 Urine protein assay by test strip, semi-quantitative NEGATIVE NEGATIVE Urine glucose detection by automated test strip NEGATIVE NEGATIVE Erythrocytes detection in urine sediment by light microscopy NEGATIVE NEGATIVE Urine ketones detection by automated test strip NEGATIVE NEGATIVE Urine nitrite detection by test strip NEGATIVE NEGATIVE Urine total bilirubin detection by test strip NEGATIVE NEGATIVE Urine urobilinogen measurement by automated test strip (mass/volume) NORMAL NORMAL Urine leukocyte esterase detection by dipstick 1+ NEGATIVE Automated urine sediment erythrocyte count by microscopy (number/high power field) NONE NRG Automated urine sediment leukocyte count by microscopy (number/high power field ) [HPF] NRG Bacteria detection in urine sediment by light microscopy NONE NRG Squamous epithelial cells detection in urine sediment by light microscopy 5-10 NRG Crystals detection in urine sediment by light microscopy NONE NRG Casts detection in urine sediment by light microscopy NONE NRG Mucus detection in urine sediment by light microscopy NEGATIVE NRG Complete urinalysis with reflex to culture NO NRG Complete urinalysis with reflex to culture - 11/20/16 20:00 Urine color determination NITIN NRG Urine clarity determination CLEAR NRG Urine pH measurement by test strip 6 5- 9 Specific gravity of urine by test strip 1.020 1.016-1.022 Urine protein assay by test strip, semi-quantitative 2+ NEGATIVE Urine glucose detection by automated test strip NEGATIVE NEGATIVE Erythrocytes detection in urine sediment by light microscopy NEGATIVE NEGATIVE Urine ketones detection by automated test strip NEGATIVE NEGATIVE Urine nitrite detection by test strip NEGATIVE NEGATIVE Urine total bilirubin detection by test strip NEGATIVE NEGATIVE Urine urobilinogen measurement by automated test strip (mass/volume) 1 mg/dL NORMAL Urine leukocyte esterase detection by dipstick 1+ NEGATIVE Automated urine sediment erythrocyte count by microscopy (number/high power field) NONE NRG Automated urine sediment leukocyte count by microscopy (number/high power field ) [HPF] NRG Bacteria detection in urine sediment by light microscopy TRACE NRG Squamous epithelial cells detection in urine sediment by light microscopy 10-25 NRG Crystals detection in urine sediment by light microscopy NONE NRG Casts detection in urine sediment by light microscopy NONE NRG Mucus detection in urine sediment by light microscopy MODERATE NRG Complete urinalysis with reflex to culture YES NRG Urine protein/creatinine mass ratio - 11/20/16 20:00 Urine protein measurement (mass/volume) 47 mg/dL 6-12 Urine creatinine measurement (mass/volume) 187 mg/dL 30-125 Urine protein/creatinine mass ratio 0.25 NRG Bacterial urine culture - 11/20/16 20:00 URINE CULTURE RESULTS <10,000/ML NRG Complete blood count (CBC) with automated white blood cell (WBC) differential - 11/22/16 22:40 Blood leukocytes automated count (number/volume) 15.8 10*3/ uL 4.3-11.0 Blood erythrocytes automated count (number/volume) 3.95 10*6 /uL 4.35-5.85 Venous blood hemoglobin measurement (mass/volume) 11.6 g/dL 11.5-16.0 Blood hematocrit (volume fraction) 35 % 35-52 Automated erythrocyte mean corpuscular volume 88 [foz_us] 80-99 Automated erythrocyte mean corpuscular hemoglobin (mass per erythrocyte) 29 pg 25-34 Automated erythrocyte mean corpuscular hemoglobin concentration measurement ( mass/volume) 33 g/dL 32-36 Automated erythrocyte distribution width ratio 13.8 % 10.0-14.5 Automated blood platelet count (count/volume) 253 10*3/uL 130-400 Automated blood platelet mean volume measurement 11.5 [foz_ us] 7.4-10.4 Automated blood neutrophils/100 leukocytes 79 % 42-75 Automated blood lymphocytes/100 leukocytes 13 % 12-44 Blood monocytes/100 leukocytes 8 % 0-12 Automated blood eosinophils/100 leukocytes 1 % 0-10 Automated blood basophils/100 leukocytes 0 % 0-10 Blood neutrophils automated count (number/volume) 12.5 10*3 1.8-7.8 Blood lymphocytes automated count (number/volume) 2.0 10*3 1.0-4.0 Blood monocytes automated count (number/volume) 1.2 10*3 0.0-1.0 Automated eosinophil count 0.1 10*3/uL 0.0-0.3 Automated blood basophil count (count/volume) 0.0 10*3/uL 0.0-0.1 Blood type T Indirect antibody screen panel - 11/22/16 22:40 ABO+Rh group OP NRG Transfusion band number [id number] NRG Blood group antibody screen NEGATIVE NRG Blood manual differential performed detection - 11/22/16 22:40 Blood monocytes/100 leukocytes 7 % NRG Manual blood segmented neutrophils/100 leukocytes 79 % NRG Blood band neutrophils/100 leukocytes 0 % NRG Manual blood lymphocytes/100 leukocytes 14 % NRG Manual eosinophils/100 leukocytes in nose 0 % NRG Manual blood basophils/100 leukocytes 0 % NRG Blood erythrocyte morphology finding identification NORMAL NRG Bacteria identification in isolate by anaerobe culture - 11/23/16 08:50 QUANTITY OF GROWTH Scant Growth NRG Bacteria identification in isolate by anaerobe culture [id number] NRG Gram stain microscopy - 11/23/16 08:50 Gram stain microscopy Occasional gram negative meliton NRG Bacteria identification in wound by culture - 11/23/16 08:50 Bacteria identification in wound by culture [id number] NRG FREE TEXT EXTERNAL (NONENTEROCOCCUS) NRG QUANTITY OF GROWTH Scant Growth NRG Encounters ACCT No. Visit Date/Time Discharge Status Pt. Type Provider Facility Loc./Unit Complaint [id number] 10/31/2014 09:17:00 10/31/2014 23: 59:59 CLS Outpatient DANYELL ZHAO APRN [id number] 07/14/2013 10:03:00 07/14/2013 23: 59:59 CLS Outpatient DANYELL ZHAO APRN [id number] 05/02/2013 15:30:00 Document Registration [id number] 04/20/2013 14:32:00 Document Registration
--- OUTSIDE RECORDS SUMMARY | 2016-12-14 09:18 | XMS REPORT | Continuity of Care Document ---
Author Author [facility] Address Unknown Phone Unavailable Allergies Active Description Code Type Severity Reaction Onset Reported/Identified Relationship to Patient Clinical Status Yes No Known Drug Allergies [id number] Drug Allergy Unknown N/ A 11/14/2016 Medications Problems Date Dx Coded Attending Type Code Diagnosis Diagnosed By 12/26/2008 296.9 MOOD DIS NOS 12/26/2008 296.9 MOOD DIS NOS 12/26/2008 CECE BEER COOLER, DANYELL A 296.9 MOOD DIS NOS 12/26/2008 CECE BEER COOLER, DANYELL A 296.9 MOOD DIS NOS 12/28/2008 296.90 MOOD DISORDER 12/28/2008 300.00 ANXIETY UNSPEC 12/28/2008 311 DEPRESSIVE DISORDER NOS 12/28/2008 296.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 DISORDER 12/28/2008 300.00 ANXIETY UNSPEC 12/28/2008 311 DEPRESSIVE DISORDER NOS 12/28/2008 CECE BEER COOLER, DANYELL A 296.90 MOOD DISORDER 12/28/2008 CECE BEER COOLER, DANYELL A 300.00 ANXIETY UNSPEC 12/28/2008 CECE BEER COOLER, DANYELL A 311 DEPRESSIVE DISORDER NOS 12/28/2008 CECE BEER COOLER, DANYELL A 296.90 MOOD DISORDER 12/28/2008 CECE BEER COOLER, DANYELL A 300.00 ANXIETY UNSPEC 12/28/2008 CECE BEER COOLER, DANYELL A 311 DEPRESSIVE DISORDER NOS 12/18/2009 844.9 SPRAIN/STRAIN KNEE/LEG 12/18/2009 844.9 SPRAIN/STRAIN KNEE/LEG 12/18/2009 CECE BEER COOLER, DANYELL A 844.9 SPRAIN/STRAIN KNEE/LEG 12/18/2009 CECE BEER COOLER, DANYELL A 844.9 SPRAIN/STRAIN KNEE/LEG 01/02/2010 623.5 [...] SMOKING CESSATION 10/31/2014 DANYELL ZHAO APRN V72.31 BUSINESS SPECIALIST EXAM, ROUTINE 10/31/2014 DANYELL ZHAO APRN V73.81 [...] YAS DOAN L Ot 873.63 01/03/2015 YAS DOAN Ot 920 01/03/2015 YAS DOAN Ot E000.8 [...] LABOR BEFORE 37 COMPLETED WEEKS OF 10/31/2016 JASWINDER STATON MD, Ot Z3A.32 32 WEEKS [...] MD, Ot3A.35 35 WEEKS GESTATION OF 11/24/2016 JASWNIDER STATON MD, Ot O30.033 TWIN , MONOCHORIONIC/ [...] Procedures Code [place] [address] US PELVIC COMPL (REFLEX CPT- 00610) 07/14/2013 71971 URINE TEST (IN-HOUSE) 07/14/2013 [id number] EXTRACTION OF POC, LOW CERVICAL, OPEN AP [...] 17:34 Serum or plasma choriogonadotropin measurement (units/volume) 86078 m[iU]/mL <5 Microscopic examination by wet preparation - 08/02/16 17:59 WET PREP RESULTS 08/02/16 18:20 BY [facility] Complete blood count (CBC) with automated white [...] ABO+Rh group OP NRG Transfusion band number [id number] NRG Blood group antibody screen NEGATIVE NRG [...] Bacteria identification in isolate by anaerobe culture [id number] NRG Gram stain microscopy - 11/23/16 08:50 Gram stain microscopy Occasional gram negative meliton NRG Bacteria identification in wound by culture - 11/23/16 08:50 Bacteria identification in wound by culture [id number] NRG FREE TEXT EXTERNAL (NONENTEROCOCCUS) NRG QUANTITY OF GROWTH Scant Growth NRG Encounters ACCT No. Visit Date/Time Discharge Status Pt. Type Provider Facility Loc./Unit Complaint [id number] 10/31/2014 09:17:00 10/31/2014 23: 59:59 CLS Outpatient DANYELL ZHAO APRN [id number] 07/14/2013 10:03:00 07/14/2013 23: 59:59 CLS Outpatient DANYELL ZHAO APRN [id number] 05/02/2013 15:30:00 Document Registration [id number] 04/20/2013 14:32:00 Document Registration
== END 2016-11-21 07:47 | disposition home or self-care (01) ==
LOC: DELPENDDIS → WSo 19:54 → LDRP 19:56 → UNDOADMOB 20:21 → LDRP 20:21 → WSo 22:00 → LDRP 11-21 08:30 → UNDODISOB 11-21 08:30 → WSo 11-21 08:30 → EDSTATUS 11-21 15:45
PROVIDERS: ADMIT Obstetrics & Gynecology; ATTEND Obstetrics & Gynecology
DX: O60.03 Preterm labor without delivery, third trimester (principal); O30.033 Twin pregnancy, monochorionic/diamniotic, third trimester; Z3A.35 35 weeks gestation of pregnancy
CPT/HCPCS: 81000; 82570; 84156; 87088; 96360; 96361; 99211; G0378

== ENCOUNTER 2016-11-22 17:23 | Outpatient (CLI) | payer MEDICAID ==
[~2016-11-22] VITALS: Ht 172.7 cm; Wt 114.8 kg
[2016-11-22 17:45] VITALS: BP 135/72
[2016-11-22] MEDS ORDERED: D5 LR IV SOLUTION 1,000 ML IV SCH (18:15)
--- NOTE | 2016-11-22 19:28 | History & Physical ---
History and Physical patient is a 31-year-old white female with an EDC of 4 [phone] with monochorionic diamniotic twins. She's had no specific problems with this . She did present with complaint of contractions pain and pressure she was found to be joanna with some regularity. Now that she has been hydrated contractions have resolved. She still continues to feel baby moving and feels some discomfort at think this is primarily due to her with twin gestation at her previous . She has been reassured. Her cervix is not changed on serial exams and plan is for discharge home with return to clinic precautions and follow-up in clinic. Allergies are none Indications are vitamins iron sulfate Xanax Zantac and folic acid Medical surgical obstetric histories are per the antepartum record H ENT exam is normal Abdomen is gravid Streaming show no clubbing or cyanosis. There is no Homans sign. Pelvic exam per the nurse shows a cervix that so 1 Mitch Ms. dilated long. There is intact membranes and ballotable presenting part. Assessment and plan 36 week with twins. Patient had labor that has now resolved. She will be discharged with follow-up in clinic Allergies and Home Medications Allergies Coded Allergies: No Known Drug Allergies (Verified , 11/14/16) Home Medications Folic Acid 1 Mg Tablet, 1 MG PO DAILY, (Reported) Omeprazole Magnesium 20 Mg Tablet.dr, 20 MG PO DAILY, (Reported) Vit W-Ca,Fe,FA(<1 mg) 1 Each Tablet, 1 EACH PO DAILY, (Reported) JASWINDER STATON MD Nov 22, 2016 7:28 pm
[2016-11-23] MEDS ORDERED: MEPERIDINE (DEMEROL) INJ 50 MG/ML ONE (09:00)
[2016-11-23] MEDS ORDERED: KETOROLAC 30 MG/ML VIAL ONE (09:00)
== END 2016-11-22 19:57 | disposition home or self-care (01) ==
LOC: DELPENDDIS → WSo 17:23 → LDRP 17:23 → WSo 19:57
PROVIDERS: ATTEND Obstetrics & Gynecology
DX: O60.03 Preterm labor without delivery, third trimester (principal); O30.033 Twin pregnancy, monochorionic/diamniotic, third trimester; Z3A.36 36 weeks gestation of pregnancy
CPT/HCPCS: 96360; 99213

== ENCOUNTER 2016-11-22 22:08 | Inpatient (IN) | payer MEDICAID ==
[~2016-11-22] VITALS: Ht 172.7 cm; Wt 115.2 kg
[2016-11-22 22:22] VITALS: BP 134/84
[2016-11-22] MEDS ORDERED: D5 LR IV SOLUTION 1,000 ML IV ONE ×2 (22:27→22:30)
[2016-11-22 22:51] LABS: BASOPHILS % (AUTO) 0 % (0-10); EOSINOPHILS # (AUTO) 0.1 10^3/uL (0.0-0.3); EOSINOPHILS % (AUTO) 1 % (0-10); LYMPHOCYTES % (AUTO) 13 % (12-44); MEAN CORPUSCULAR HEMOGLOBIN 29 PG (25-34); MEAN CORPUSCULAR HGB CONC 33 G/DL (32-36); MEAN CORPUSCULAR VOLUME 88 FL (80-99); MEAN PLATELET VOLUME 11.5 FL (7.4-10.4); MONOCYTES # (AUTO) 1.2 X 10^3 (0.0-1.0); MONOCYTES % (AUTO) 8 % (0-12); NEUTROPHILS # (AUTO) 12.5 X 10^3 (1.8-7.8); NEUTROPHILS % (AUTO) 79 % (42-75); PLATELET COUNT 253 10^3/uL (130-400); RED BLOOD COUNT 3.95 10^6/uL (4.35-5.85); RED CELL DISTRIBUTION WIDTH 13.8 % (10.0-14.5); WHITE BLOOD COUNT 15.8 10^3/uL (4.3-11.0)
[2016-11-22 23:07] LABS: BAND NEUTROPHILS 0 %; BASOPHILS % (MANUAL) 0 %; EOSINOPHILS % (MANUAL) 0 %; LYMPHOCYTES % (MANUAL) 14 %; NEUTROPHILS % (MANUAL) 79 %
[2016-11-22] MEDS ORDERED: BUTORPHANOL INJ 2 MG/ML (STADOL) VIAL IV ONE (23:45)
[2016-11-22] MEDS: D5 LR IV SOLUTION 1,000 ML IV SCH (23:50)
[2016-11-23] MEDS: D5 LR IV SOLUTION 1,000 ML IV SCH (00:54)
[2016-11-23] MEDS ORDERED: BUTORPHANOL INJ 2 MG/ML (STADOL) VIAL IV ONE (03:30)
[2016-11-23] MEDS ORDERED: LACTATED RINGERS 1,000 ML IV PRN (04:00)
[2016-11-23] MEDS ORDERED: FAMOTIDINE 20MG/2ML IV (PEPCID) IV ONE (04:00)
[2016-11-23] MEDS ORDERED: CITRIC ACID/SOB CIT (BICITRA) 30 ML UDC PO ONE (04:00)
[2016-11-23] MEDS ORDERED: METOCLOPRAMIDE INJ 10 MG/2 ML (REGLAN) IV ONE (04:00)
[2016-11-23 06:21] VITALS: BP 133/77
[2016-11-23] MEDS ORDERED: TERBUTALINE INJ 1 MG/ML (BRETHINE) AMP SC ONE ×2 (06:30→08:00)
[2016-11-23 07:25] VITALS: BP 134/67
[2016-11-23] MEDS: LACTATED RINGERS 1,000 ML IV PRN ×2 (07:30→08:55)
[2016-11-23] MEDS ORDERED: ceFAZolin 2 GM/50 ML NS 50 ML IV ONE (07:45)
[2016-11-23] MEDS ORDERED: metroNIDAZOLE 500MG/100ML IVPB 100 ML IV ONE ×2 (07:45→08:00)
[2016-11-23] MEDS ORDERED: fentaNYL INJECTION 100 MCG/2 ML AMP ONE (07:48)
[2016-11-23] MEDS ORDERED: OXYTOCIN/NORMAL SALINE 1,000 ML IV ONE (07:48)
--- NOTE | 2016-11-23 07:55 | History & Physical ---
History and Physical this patient is a 31-year-old white female with an EDC of 4 3017 putting her 36 weeks gestation. She presented with contractions every 2 minutes. Her cervix dilated 3 cm. She had been admitted now for repeat . is complicated by monochorionic diamniotic twins. She's had no other problems with this . She denies rupture membranes or bleeding. Group B strep culture was accomplished in clinic but that result is not available as yet. Allergies are none Occasions are vitamins iron sulfate Zantac and folic acid Past medical history, past surgical history, obstetric history, family history, and social histories are per the antepartum record HEENT exam is normal Neck is supple no lymphadenopathy no thyromegaly Abdomen is gravid soft nontender nondistended Extreme show no clubbing cyanosis. There is no Homans sign. Pelvic exam shows a cervix 3 similar dilated 50 percent effaced -2 station intact membranes and ballotable parts Laboratory Tests Test 11/22/16 22:40 Range/Units White Blood Count 15.8 H 4.3-11.0 10^3/uL Red Blood Count 3.95 L 4.35-5.85 10^6/uL Hemoglobin 11.6 11.5-16.0 G/DL Hematocrit 35 35-52 % Mean Corpuscular Volume 88 80-99 FL Mean Corpuscular Hemoglobin 29 25-34 PG Mean Corpuscular Hemoglobin Concent 33 32-36 G/DL Red Cell Distribution Width 13.8 10.0-14.5 % Platelet Count 253 130-400 10^3/uL Mean Platelet Volume 11.5 H 7.4-10.4 FL Neutrophils (%) (Auto) 79 H 42-75 % Lymphocytes (%) (Auto) 13 12-44 % Monocytes (%) (Auto) 8 0-12 % Eosinophils (%) (Auto) 1 0-10 % Basophils (%) (Auto) 0 0-10 % Neutrophils # (Auto) 12.5 H 1.8-7.8 X 10^3 Lymphocytes # (Auto) 2.0 1.0-4.0 X 10^3 Monocytes # (Auto) 1.2 H 0.0-1.0 X 10^3 Eosinophils # (Auto) 0.1 0.0-0.3 10^3/uL Basophils # (Auto) 0.0 0.0-0.1 10^3/uL Neutrophils % (Manual) 79 % Lymphocytes % (Manual) 14 % Monocytes % (Manual) 7 % Eosinophils % (Manual) 0 % Basophils % (Manual) 0 % Band Neutrophils 0 % Blood Morphology Comment NORMAL Vital Signs Date Time Temp Pulse Resp B/P (MAP) Pulse Ox O2 Delivery O2 Flow Rate FiO2 11/23/16 07:25 98.0 112 20 134/67 Room Air 11/23/16 06:21 97.5 103 20 133/77 Room Air 11/22/16 22:22 98.1 98 18 134/84 Room Air monitor shows contractions every 2 minutes. There is normal heart rate pattern 2 Assessment and plan 36 week with monochorionic diamniotic twins and previous labor. We will proceed with delivery 36 week twin IUP in labor with previous Allergies and Home Medications Allergies Coded Allergies: No Known Drug Allergies (Verified , 11/14/16) Home Medications Folic Acid 1 Mg Tablet, 1 MG PO DAILY, (Reported) Omeprazole Magnesium 20 Mg Tablet.dr, 20 MG PO DAILY, (Reported) Vit W-Ca,Fe,FA(<1 mg) 1 Each Tablet, 1 EACH PO DAILY, (Reported) Clinical Quality Measures DVT/VTE Risk/Contraindication: Risk Factor Score Per Nursin RFS Level Per Nursing on Admit: 2=Moderate JASWINDER STATON MD Nov 23, 2016 7:55 am
[2016-11-23] MEDS ORDERED: OXYTOCIN/NORMAL SALINE 500 ML IV SCH (07:57)
[2016-11-23] MEDS ORDERED: ceFAZolin INJECTION 2,000 MG in NS (IVPB) 50 ML IV ONE (08:00)
[2016-11-23] MEDS ORDERED: MEASLES,MUMPS,RUBELLA 1 EA INJ SC ONE (08:00)
[2016-11-23] MEDS ORDERED: MEPERIDINE (DEMEROL) INJ 100 MG/ML IM PRN (08:00)
[2016-11-23] MEDS ORDERED: TETANUS,DIPTH,PERTUSS P/F (BOOSTRIX) 0.5 ML VIAL IM ONE (08:00)
[2016-11-23] MEDS ORDERED: PROMETHAZINE INJ 25 MG/ML (PHENERGAN) AMP IM PRN (08:00)
[2016-11-23] MEDS ORDERED: D5 LR IV SOLUTION 1,000 ML IV ONE (08:05)
[2016-11-23] MEDS: KETOROLAC 30 MG/ML VIAL IVP SCH ×3 (09:35→22:22)
[2016-11-23 10:25] VITALS: BP 124/71
[2016-11-23 12:00] VITALS: BP 119/70
[2016-11-23] MEDS: CATHETER FLUSH 10 ML SYR IV SCH ×3 (13:42→22:00)
[2016-11-23] MEDS: DOCUSATE SODIUM 100 MG (COLACE) CAP PO SCH ×2 (13:43→22:22)
[2016-11-23 15:33] VITALS: BP 131/83
[2016-11-23] MEDS: oxyCODONE/APAP 10/325MG (PERCOCET 10) TABLET PO PRN (15:40)
[2016-11-23] MEDS: ceFAZolin 2 GM/50 ML NS 50 ML IV SCH (16:37)
[2016-11-23 22:30] VITALS: BP 128/82
[2016-11-24] MEDS: oxyCODONE/APAP 10/325MG (PERCOCET 10) TABLET PO PRN ×3 (00:20→12:39)
[2016-11-24] MEDS: ceFAZolin 2 GM/50 ML NS 50 ML IV SCH (00:20)
[2016-11-24 02:25] VITALS: BP 107/59
[2016-11-24] MEDS: KETOROLAC 30 MG/ML VIAL IVP SCH (04:36)
[2016-11-24 06:00] VITALS: BP 121/71
[2016-11-24] MEDS ORDERED: IBUP-1780 PO (07:51)
[2016-11-24] MEDS ORDERED: OXYC-465 PO (07:51)
[2016-11-24] MEDS ORDERED: CEPH250C PO (07:51)
[2016-11-24] MEDS ORDERED: DOCU100C37 PO (07:51)
--- NOTE | 2016-11-24 07:53 | Discharge Instructions ---
Discharge Instructions Discharge Medications New, Converted or Re-Newed RX: RX on Chart Patient Instructions Patient Instructions: as directed Return to The Hospital For: as directed Activity & Diet Discharge Diet: No Restrictions Activity as Tolerated: No Orders-Post D/C & Referrals Follow Up Appt: RTC November 26 at 9 a.m. for incision check and staple removal. Call to make follow up appt. for patient in 4 weeks. Wound Care: Do Not Remove akbar. Activity Per routine post instructions. Please call in RX to patient pharmacy. Diet as tolerated Patient may shower or tub bathe as desired. Continue home meds JASWINDER STATON MD Nov 24, 2016 7:53 am
--- NOTE | 2016-11-24 07:55 | Progress Note-Standard ---
Standard Progress Note Progress Notes/Assess & Plan Progress/Assessment & Plan this patient is without complaint, is ambulating, voiding, tolerating by mouth well, has good pain control, denies chest pain, denies shortness of breath, denies headache, denies nausea vomiting, is requesting discharge home Vital Signs Date Time Temp Pulse Resp B/P (MAP) Pulse Ox O2 Delivery O2 Flow Rate FiO2 11/24/16 06:00 96.2 97 16 121/71 96 Room Air 11/24/16 02:25 96.0 101 18 107/59 98 Room Air 11/23/16 22:30 96.9 90 18 128/82 100 Room Air 11/23/16 22:30 100 11/23/16 15:33 98.7 75 20 131/83 98 Room Air 11/23/16 12:00 97.4 95 18 119/70 98 Room Air 11/23/16 10:25 97.9 95 20 124/71 Room Air 11/23/16 09:35 99.2 I & O 11/24/16 07:00 Intake Total 6372 ml Output Total 2200 ml Balance 4172 ml Patient is afebrile. Vital signs are stable. Fundus is firm below the umbilicus and nontender. The incision is clean dry and intact. Extremities show clubbing cyanosis. There is no Homans sign. There is some pretibial pitting edema that is normal. Assessment and plan operative day number 1 status post repeat delivery at 36 weeks gestation for monochorionic diamniotic twins due to labor. Plan is to allow discharge home as this patient's twins have been transferred to [facility]. Follow-up will be in clinic. Final Diagnosis 36 week repeat monochorionic diamniotic twins JASWINDER STATON MD Nov 24, 2016 7:55 am
[2016-11-24] MEDS ORDERED: IBUPROFEN 800 MG (MOTRIN) TAB PO SCH (08:00)
[2016-11-24] MEDS ORDERED: TETANUS,DIPTH,PERTUSS P/F (BOOSTRIX) 0.5 ML VIAL IM ONE (09:02)
--- NOTE | 2016-11-24 09:05 | OPERATIVE REPORT ---
PROCEDURE PHYSICIAN: JASWINDER STATON DATE OF PROCEDURE: 11/22/2016 PREOPERATIVE DIAGNOSES: 1. 36 week with monochorionic diamniotic twins. 2. labor. 3. Previous . POSTOPERATIVE DIAGNOSES: 1. 36 week with monochorionic diamniotic twins. 2. labor. 3. Previous . OPERATIVE PROCEDURE: Repeat low transverse delivery of a viable twin male infants. A - Male - Wt 5# 11oz - Cord ABG 7.14 - Time 0839 B - Male - Wt 5# 9oz - Cord ABG 7.11 - Time 0840 PEDIATRICIANS FOR DELIVERY: 1. Dr. Franco. 2. Dr. Castle. OPERATIVE DESCRIPTION: With the patient in the supine position, under satisfactory spinal anesthesia, she was prepped and draped in usual fashion for abdominal surgery. Grider cath was placed in the urinary bladder. A repeat Pfannenstiel incision made through the skin with a scalpel at the site of the patient's previous Pfannenstiel incision. The abdomen was entered in the usual manner. Bladder retractor placed into position and a clean scalpel used to make a 4 cm hysterotomy incision transversely across lower uterine segment on hysterotomy. The membranes were still intact and copious purulent discharged with a foul odor was released from the uterus. The incision was extended bluntly and then membranes for baby A were ruptured and baby A was delivered via the uterine incision from a vertex presentation. Baby A had a cord blood pH of 7.14. Apgars and weight are noted above. Infant A was bulb suctioned on delivery of the head and again on completion of delivery. The cord was doubly clamped and cut and the passed to the pediatricians. Baby B membranes were still intact. Baby B was breech. The left foot was palpable and was grasped and brought out through the incision. At this point, the membranes were ruptured and breech extraction was performed with delivery of a viable male infant with cord blood pH of 7.11. There was a double nuchal cord as well as an arm cord. The was bulb suctioned on delivery. The cord was doubly clamped and cut and the infant passed to the pediatricians as well. Apgars and weight are noted above. Placental culture was obtained from both cavities with the same swab. The cord bloods were then obtained with cord blood gas from baby A, being 7.14. Cord blood gas from baby B 7.11. Other bloods were obtained and sent to the lab. The placental mass delivered spontaneously Christianson. It was normal with two cords and no dictinct separation. That was sent to pathology for permanent section. The uterus was exteriorized, interior wiped clean with a wet laparotomy sponge. Uterine incision then closed with a running locked suture of 2-0 Vicryl. Hemostasis was complete. The uterus was returned to the abdominal cavity. All blood clot and debris removed from the abdominal cavity. With sponge and needle counts correct and hemostasis assured, the anterior parietal peritoneum was closed running suture of 2-0 Vicryl. The rectus muscles were closed with that suture as well. The rectus fascia was closed with 2-0 Vicryl. Subcutaneous tissues were closed with 2-0 Vicryl and the skin was stapled. Sponge and needle counts were correct on completion of the procedure. Estimated blood loss was around 300 mL. The patient was transferred to the recovery in stable condition. The infants had both been taken stable to the full term nursery in the care of Dr. Junior. Job ID: [id number] Dictated Date: 11/23/2016 09:22:58 Promotional Advertising Assistant Date: 11/24/2016 08:52:35 / julio GUILLEN
[2016-11-24] MEDS: CEPHALEXIN 250 MG (KEFLEX) CAP PO SCH ×2 (09:06→12:39)
[2016-11-24] MEDS: DOCUSATE SODIUM 100 MG (COLACE) CAP PO SCH (09:06)
[2016-11-24] MEDS: CATHETER FLUSH 10 ML SYR IV SCH ×2 (09:08→14:00)
[2016-11-24 09:11] VITALS: BP 123/77
--- NOTE | 2016-11-24 14:27 | Anesthesia-Regional Post-Op ---
Regional Patient Condition Mental Status: Alert, Oriented x3 Circulation: Same as Pre-Op Headache: Absent Sensation: Full Recovery Motor Block: Absent Post Op Complications Complications None Follow Up Care/Instructions Patient Instructions None needed. Anesthesia/Patient Condition Patient is doing well, no complaints, stable vital signs, no apparent adverse anesthesia problems. No complications reported per nursing. GRACE SMITH CRNA Nov 24, 2016 14:27
--- OUTSIDE RECORDS SUMMARY | 2016-12-16 11:43 | XMS REPORT | Continuity of Care Document ---
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 296.9 MOOD DIS NOS 12/26/2008 CECE JOINTER OPERATOR, DANYELL A 296.9 MOOD DIS NOS 12/28/2008 296.90 MOOD DISORDER 12/28/2008 300.00 ANXIETY UNSPEC 12/28/2008 311 DEPRESSIVE DISORDER NOS 12/28/2008 296.90 MOOD DISORDER 12/28/2008 300.00 ANXIETY UNSPEC 12/28/2008 311 DEPRESSIVE DISORDER NOS 12/28/2008 CECE JOINTER OPERATOR, DANYELL A 296.90 MOOD DISORDER 12/28/2008 CECE JOINTER OPERATOR, DANYELL A 300.00 ANXIETY UNSPEC 12/28/2008 CECE JOINTER OPERATOR, DANYELL A 311 DEPRESSIVE DISORDER NOS 12/28/2008 CECE JOINTER OPERATOR, DANYELL A 296.90 MOOD DISORDER 12/28/2008 CECE JOINTER OPERATOR, DANYELL A 300.00 ANXIETY UNSPEC 12/28/2008 CECE JOINTER OPERATOR, DANYELL A 311 DEPRESSIVE DISORDER NOS 12/18/2009 844.9 SPRAIN/STRAIN KNEE/LEG 12/18/2009 844.9 SPRAIN/STRAIN KNEE/LEG 12/18/2009 CECE JOINTER OPERATOR, DANYELL A 844.9 SPRAIN/STRAIN KNEE/LEG 12/18/2009 CECE JOINTER OPERATOR, DANYELL A 844.9 SPRAIN/STRAIN KNEE/LEG 01/02/2010 623.5 [...] SMOKING CESSATION 10/31/2014 DANYELL ZHAO APRN V72.31 BUTADIENE COMPRESSOR OPERATOR EXAM, ROUTINE 10/31/2014 DANYELL ZHAO APRN V73.81 HPV SCREENING 10/31/2014 DANYELL ZHAO APRN V74.5 STD SCREEN 10/31/2014 DANYELL ZHAO APRN V76.2 CERVICAL CANCER SCREENING (PAP SMEAR) 12/30/2014 ROB BROWN, IDXIE Mittal Ot 574.20 12/30/2014 ROB BROWN, DIXIE [...] Procedures Code Description [place] [address] US PELVIC COMPL (REFLEX CPT- 99107) 07/14/2013 62946 URINE TEST (IN-HOUSE) 07/14/2013 [id number] EXTRACTION OF POC, LOW CERVICAL, OPEN AP [...] 17:34 Serum or plasma choriogonadotropin measurement (units/volume) 63109 m[iU]/mL <5 Microscopic examination by wet preparation - 08/02/16 17:59 WET PREP RESULTS 08/02/16 18:20 BY [facility] Complete blood count (CBC) with automated [...] ABO+Rh group OP NRG Transfusion band number [id number] NRG Blood group antibody screen NEGATIVE NRG [...] Bacteria identification in isolate by anaerobe culture [id number] NRG Gram stain microscopy - 11/23/16 08:50 Gram stain microscopy Occasional gram negative meliton NRG Bacteria identification in wound by culture - 11/23/16 08:50 Bacteria identification in wound by culture [id number] NRG FREE TEXT EXTERNAL (NONENTEROCOCCUS) NRG QUANTITY OF GROWTH Scant Growth NRG Encounters ACCT No. Visit Date/Time Discharge Status Pt. Type Provider Facility Loc./Unit Complaint [id number] 10/31/2014 09:17:00 10/31/2014 23: 59:59 CLS Outpatient DANYELL ZHAO APRN [id number] 07/14/2013 10:03:00 07/14/2013 23: 59:59 CLS Outpatient DANYELL ZHAO APRN [id number] 05/02/2013 15:30:00 Document Registration [id number] 04/20/2013 14:32:00 Document Registration
--- OUTSIDE RECORDS SUMMARY | 2016-12-28 17:01 | XMS REPORT | Continuity of Care Document ---
Author Author [facility] Address Unknown Phone Unavailable Allergies Active Description Code Type Severity Reaction Onset Reported/Identified Relationship to Patient Clinical Status Yes No Known Drug Allergies [id number] Drug Allergy Unknown N/ A 11/14/2016 Medications Problems Date Dx Coded Attending Type Code Diagnosis Diagnosed By 12/26/2008 296.9 MOOD DIS NOS 12/26/2008 296.9 MOOD DIS NOS 12/26/2008 CECE LOG TURNER, DANYELL A 296.9 MOOD DIS NOS 12/26/2008 CECE LOG TURNER, DANYELL A 296.9 MOOD DIS NOS 12/28/2008 296.90 MOOD DISORDER 12/28/2008 300.00 ANXIETY UNSPEC 12/28/2008 311 DEPRESSIVE DISORDER NOS 12/28/2008 296.90 MOOD DISORDER 12/28/2008 300.00 ANXIETY UNSPEC 12/28/2008 311 DEPRESSIVE DISORDER NOS 12/28/2008 CECE LOG TURNER, DANYELL A 296.90 MOOD DISORDER 12/28/2008 CECE LOG TURNER, DANYELL A 300.00 ANXIETY UNSPEC 12/28/2008 CECE LOG TURNER, DANYELL A 311 DEPRESSIVE DISORDER NOS 12/28/2008 CECE LOG TURNER, DANYELL A 296.90 MOOD DISORDER 12/28/2008 CECE LOG TURNER, DANYELL A 300.00 ANXIETY UNSPEC 12/28/2008 CECE LOG TURNER, DANYELL A 311 DEPRESSIVE DISORDER NOS 12/18/2009 844.9 SPRAIN/STRAIN KNEE/LEG 12/18/2009 844.9 SPRAIN/STRAIN KNEE/LEG 12/18/2009 CECE LOG TURNER, DANYELL A 844.9 SPRAIN/STRAIN KNEE/LEG 12/18/2009 CECE LOG TURNER, DANYELL A 844.9 SPRAIN/STRAIN KNEE/LEG 01/02/2010 623.5 [...] SMOKING CESSATION 10/31/2014 DANYELL ZHAO APRN V72.31 HOUSING AND RESIDENCE LIFE DIRECTOR EXAM, ROUTINE 10/31/2014 DANYELL ZHAO APRN V73.81 [...] V72.83 EXAM PRE-OPERATIVE NEC 08/02/2016 ROB BROWN, DIIXE Mittal Ot V74.8 SCREEN-BACTERIAL DIS NEC 08/02/2016 [...] DELIVERY, THIRD TR 11/21/2016 JASWINDER STATON MD, Ot Z3A.35 35 WEEKS GESTATION OF 11/22/2016 JASWINDER STATON MD, Ot O30.033 TWIN , MONOCHORIONIC/ DIAMNIOTIC 11/22/2016 JASWINDER STATON MD, Ot O60.03 LABOR WITHOUT DELIVERY, THIRD TR 11/22/2016 JASWINDER STATON MD, Ot3A.36 36 WEEKS GESTATION OF 11/24/2016 JASWINDER STATON MD, Ot O30.033 TWIN , MONOCHORIONIC/ DIAMNIOTIC 11/24/2016 JASWINDER STATON MD, Ot O34.211 MATERN CARE FOR LOW TRANSVERSE SCAR FROM 11/24/2016 JASWINDER STATON MD, Ot O60.14X0 LABOR THIRD TRI W DELIVE 11/24/2016 JASWINDER STATON MD, Ot Z23 ENCOUNTER FOR IMMUNIZATION 11/24/2016 JASWINDER STATON MD, Ot Z37.0 SINGLE LIVE 11/24/2016 JASWINDER STATON MD, Ot3A.36 36 WEEKS GESTATION OF 11/25/2016 JASWINDER STATON MD, Ot O30.033 TWIN , MONOCHORIONIC/ DIAMNIOTIC 11/25/2016 JASWINDER STATON MD, Ot O60.03 LABOR WITHOUT DELIVERY, THIRD TR 11/25/2016 JASWINDER STATON MD, Ot Z3A.36 36 WEEKS GESTATION OF Procedures Code Description [place] [address] US PELVIC COMPL (REFLEX CPT- 42395) 07/14/2013 78669 URINE TEST (IN-HOUSE) 07/14/2013 21U46R3 EXTRACTION OF POC, LOW CERVICAL, OPEN AP [...] 17:34 Serum or plasma choriogonadotropin measurement (units/volume) 47761 m[iU]/mL <5 Microscopic examination by wet preparation - 08/02/16 17:59 WET PREP RESULTS 08/02/16 18:20 BY [facility] Complete blood count (CBC) with automated [...] ABO+Rh group OP NRG Transfusion band number [id number] NRG Blood group antibody screen NEGATIVE NRG [...] Bacteria identification in isolate by anaerobe culture [id number] NRG Gram stain microscopy - 11/23/16 08:50 Gram stain microscopy Occasional gram negative meliton NRG Bacteria identification in wound by culture - 11/23/16 08:50 Bacteria identification in wound by culture [id number] NRG FREE TEXT EXTERNAL (NONENTEROCOCCUS) NRG QUANTITY OF GROWTH Scant Growth NRG Encounters ACCT No. Visit Date/Time Discharge Status Pt. Type Provider Facility Loc./Unit Complaint [id number] 10/31/2014 09:17:00 10/31/2014 23: 59:59 CLS Outpatient DANYELL ZHAO APRN [id number] 07/14/2013 10:03:00 07/14/2013 23: 59:59 CLS Outpatient DANYELL ZHAO APRN [id number] 05/02/2013 15:30:00 Document Registration [id number] 04/20/2013 14:32:00 Document Registration
== END 2016-11-24 14:42 | disposition home or self-care (01) | DRG 765 ==
LOC: DELPENDDIS → WSo 22:08 → LDRP 22:08 → OBSVTOIN 11-23 03:16 → UNDOADMIN 11-23 03:16 → WSo 11-23 03:16 → LDRP 11-23 03:16 → UNDODISIN 11-24 14:42 → EDSTATUS 11-26 11:08
PROVIDERS: ADMIT Obstetrics & Gynecology; ATTEND Obstetrics & Gynecology
PROC: 10D00Z1 Extraction of Products of Conception, Low, Open Approach (ICD-10-PCS; principal; 2016-11-22)
DX: O60.14X0 Preterm labor third trimester with preterm delivery third trimester, not applicable or unspecified (principal); O30.033 Twin pregnancy, monochorionic/diamniotic, third trimester; O34.211 Maternal care for low transverse scar from previous cesarean delivery; Z37.0 Single live birth; Z3A.36 36 weeks gestation of pregnancy; Z23 Encounter for immunization
CPT/HCPCS: 36415; 85007; 85027; 86850; 86900; 86901; 87070; 87075; 87205; 88307; 90715; 94664; 99212; G0378

== ENCOUNTER 2017-06-10 18:34 | Emergency (ER) | payer MEDICAID ==
[~2017-06-10] VITALS: Ht 172.7 cm; Wt 88.5 kg
[~2017-06-10 18:34] MED LIST changes: +CEPH250C PO; +DOCU100C37 PO; +IBUP-1780 PO; +OXYC-465 PO
--- NOTE | 2017-06-10 19:14 | ED Back Pain ---
General Chief Complaint: Back Problems Stated Complaint: LOWER LEFT SIDED BACK PAIN Nursing Triage Note: PT REPORTS SHE HAS L LOWER BACK PAIN SINCE THIS AFTERNOON. SHE DENIES ANY INJURY. Nursing Sepsis Screen: No Definite Risk Source of Information: Patient, Spouse Exam Limitations: No Limitations History of Present Illness Time Seen by Provider: 19:14 Initial Comments 32-year-old female patient presents to the emergency department with complaints of left low back pain beginning this afternoon. States she has had a little bit of pain on that side for several days, worse today. Denies any known recent injury. Patient states she does have twins that are approximately 6 months old. 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 States she is having to carry both car seats by herself. Unsure if maybe she strained a muscle. Denies any dysuria or frequency. Location: Paraspinous Muscles (left low back) Timing/Duration: Constant Pain/Injury Location: Back Radiation: Other (denies radiation) Method of Injury: Unknown (denies known injury) Modifying Factors: Improves With Immobilization, Worse With Movement Associated Symptoms: muscle spasms, No fever, No weakness, No numbness in legs/ feet, No tingling in legs/feet, No sensory/motor loss, lower back pain, No loss of bladder control, No loss of bowel control Allergies and Home Medications Allergies Coded Allergies: No Known Drug Allergies (Verified , 11/14/16) Home Medications Cephalexin 250 Mg Capsule, 500 MG PO QID, #28 Prescribed by: JASWINDER SPARROW on 11/24/16 0751 Cephalexin 500 Mg Capsule, 500 MG PO TID, #15 Ref 0 Prescribed by: YAS GONZALEZ on 06/10/171952 Cyclobenzaprine HCl 10 Mg Tablet, 10 MG PO Q8H PRN for SPASMS, #10 Ref 0 Prescribed by: YAS GONZALEZ on 06/10/171952 Docusate Sodium 100 Mg Capsule, 100 MG PO BID, #60 Prescribed by: JASWINDER SPARROW on 11/24/16 075 Ibuprofen 800 Mg Tablet, 800 MG PO Q6H, #60 Prescribed by: JASWINDER SPARROW on 11/24/16 075 Naproxen 500 Mg Tablet, 500 MG PO BID PRN for pain, #20 Ref 0 Prescribed by: YAS GONZALEZ on 06/10/171952 Omeprazole Magnesium 20 Mg Tablet.dr, 20 MG PO DAILY, (Reported) Oxycodone HCl/Acetaminophen 1 Each Tablet, 1-2 TAB PO Q4H PRN for PAIN, #60 Prescribed by: JASWINDER SPARROW on 11/24/16 0751 Phenazopyridine HCl 200 Mg Tablet, 1 TAB PO Q8H PRN for pain, #14 Ref 0 Prescribed by: YAS GONZALEZ on 06/10/171952 Vit W-Ca,Fe,FA(<1 mg) 1 Each Tablet, 1 EACH PO DAILY, (Reported) Constitutional: No chills, No fever, No malaise, No weakness EENTM: no symptoms reported Respiratory: No cough, No phlegm, No short of breath Cardiovascular: No chest pain, No palpitations Gastrointestinal: No abdominal pain, No constipation, No diarrhea, No nausea, No vomiting Genitourinary: No decreased output, No dysuria, No frequency, No hematuria, No pain Musculoskeletal: see HPI, back pain, No joint pain, No neck pain Skin: no symptoms reported Psychiatric/Neurological: Denies Numbness, Denies Paresthesia, Denies Tingling , Denies Weakness All Other Systems Reviewed Negative Unless Noted: Yes (Negative excepted noted.) Past Kkklwpa-Csqpik-Yjkrgk Hx Patient Social History Alcohol Use: Denies Use Recreational Drug Use: No Smoking Status: Current Everyday Smoker Type Used: Cigarettes 2nd Hand Smoke Exposure: Yes Recent Foreign Travel: No Contact w/Someone Who Travel: No Recent Infectious Disease Expo: No Recent Hopitalizations: No Physical Abuse: No Sexual Abuse: No Immunizations Up To Date Tetanus Booster (TDap): Unknown Date of Influenza Vaccine: Sep 17, 2016 Seasonal Allergies Seasonal Allergies: No Surgeries History of Surgeries: Yes Surgeries: Section, Gallbladder Respiratory History of Respiratory Disorde: No Cardiovascular History of Cardiac Disorders: No Neurological History of Neurological Disord: No Genitourinary History of Genitourinary Disor: No Gastrointestinal History of Gastrointestinal Di: No Musculoskeletal History of Musculoskeletal Dis: No Endocrine History of Endocrine Disorders: No HEENT History of HEENT Disorders: Yes (WEARS GLASSES) Cancer History of Cancer: No Psychosocial History of Psychiatric Problem: Yes Behavioral Health Disorders: ADD/ADHD, Anxiety Suicide Risk Score: 0 Integumentary History of Skin or Integumenta: No Blood Transfusions History of Blood Disorders: No Reviewed Nursing Assessment Reviewed/Agree w Nursing PMH: Yes Family Medical History Significant Family History: No Pertinent Family Hx Family Medial History: Hypertension GRANDMOTHER, MATERNAL Physical Exam Vital Signs Vital Sign - Last 12Hours 06/10/17 18:35 Temp 97.2 Pulse 71 Resp 16 B/P (MAP) 122/70 Pulse Ox 98 O2 Delivery Room Air Capillary Refill : Less Than 3 Seconds General Appearance: No Apparent Distress, WD/WN HEENT: PERRL/EOMI, Pharynx Normal Neck: Full Range of Motion, Normal Inspection, Non Tender, Supple Cardiovascular: Regular Rate, Rhythm, No Edema, No Murmur, Normal Peripheral Pulses Respiratory: Lungs Clear, Normal Breath Sounds, No Accessory Muscle Use, No Respiratory Distress Peripheral Pulses: 2+ Dorsalis Pedis (R), 2+ Left Dors-Pedis (L), 2+ Radial Pulses (R), 2+ Radial Pulses (L) Gastrointestinal: Normal Bowel Sounds, No Organomegaly, Non Tender, Soft, No Distended Back: Normal Inspection, No Vertebral Tenderness, Decreased Range of Motion, Muscle Spasm (muscle spasm of the left low back paraspinous muscles with tenderness) Extremity: Normal Capillary Refill, Normal Inspection, Normal Range of Motion, Non Tender, No Pedal Edema Neurologic/Psychiatric: Alert, Oriented x3, No Motor/Sensory Deficits, Normal Mood/Affect Skin: Normal Color, Warm/Dry Progress/Results/Core Measures Results/Orders Lab Results Laboratory Tests Test 06/10/17 19:29 Range/Units Urine Color YELLOW Urine Clarity CLEAR Urine pH 6 5-9 Urine Specific [place] 1.020 1.016-1.022 Urine Protein NEGATIVE NEGATIVE Urine Glucose (UA) NEGATIVE NEGATIVE Urine Ketones NEGATIVE NEGATIVE Urine Nitrite NEGATIVE NEGATIVE Urine Bilirubin NEGATIVE NEGATIVE Urine Urobilinogen NORMAL NORMAL MG/DL Urine Leukocyte Esterase 1+ H NEGATIVE Urine RBC (Auto) NEGATIVE NEGATIVE Urine RBC NONE /HPF Urine WBC 5-10 H /HPF Urine Squamous Epithelial Cells 0-2 /HPF Urine Crystals NONE /LPF Urine Bacteria MODERATE H /HPF Urine Casts NONE /LPF Urine Mucus NEGATIVE /LPF Urine Culture Indicated YES Micro Results Microbiology 06/10/17 Urine Culture - Preliminary, Resulted Klebsiella Pneumoniae My Orders Orders - YAS GONZALEZ Urine Bedside (06/10/17 19:12) Cyclobenzaprine Tablet (Flexeril Tablet) (06/10/17 19:50) Hydrocodone/Apap 5/325 Tablet (Lortab 5 (06/10/17 19:50) Cephalexin Capsule (Keflex Capsule) (06/10/17 20:00) Vital Signs/I&O Vital Sign - Last 12Hours 06/10/17 06/10/17 18:35 20:04 Temp 97.2 97.2 Pulse 71 71 Resp 16 16 B/P (MAP) 122/70 Pulse Ox 98 98 O2 Delivery Room Air Blood Pressure Mean: 87 Departure Communication (Admissions) Progress Notes Laboratory findings discussed with the patient. Patient was given Flexeril and hydrocodone with improvement in back pain. Patient was given 1 dose of cephalexin 500 mg by mouth prior to discharge. Discharge to home. All return precautions were discussed with the patient as described in the discharge instructions of this report. Patient verbalizes understanding and agrees with the treatment plan. Impression Impression: Primary Impression: Urinary tract infection Qualified Codes: N30.00 - Acute cystitis without hematuria Additional Impression: Strain of tendon of back Qualified Codes: S39.012A - Strain of muscle, fascia and tendon of lower back , initial encounter Disposition: HOME, SELF-CARE Condition: Improved Departure-Patient Inst. Decision time for Depature: 19:53 Referrals: NO,LOCAL PHYSICIAN (PCP/Family) Primary Care Physician Patient Instructions: Lumbar Muscle Strain (DC), Urinary Tract Infection, Adult (DC) Add. Discharge Instructions: All discharge instructions reviewed with patient and/or family. Voiced understanding. Medications as instructed. Tylenol Extra Strength over-the- counter as directed for pain. No heavy lifting, pushing, pulling, twisting, bending, or climbing for 5-7 days. Increase activity as tolerated. Ice or hot packs as needed for pain. Follow-up with your family practitioner for recheck as an outpatient if no improvement in symptoms in 7-10 days. Return to the emergency department for worsened pain, numbness, weakness, numbness of the genitals, bowel incontinence, bladder incontinence, fever, or any other concerns. Scripts Naproxen (Naprosyn) 500 Mg Tablet 500 MG PO BID Y for pain, #20 TAB 0 Refills Prov: YAS GONZALEZ 06/10/17 Cyclobenzaprine HCl (Cyclobenzaprine HCl) 10 Mg Tablet 10 MG PO Q8H Y for SPASMS, #10 TAB 0 Refills Prov: YAS GONZALEZ 06/10/17 Phenazopyridine HCl (Pyridium) 200 Mg Tablet 1 TAB PO Q8H Y for pain, #14 TAB 0 Refills Prov: YAS GONZALEZ 06/10/17 Cephalexin (Cephalexin) 500 Mg Capsule 500 MG PO TID, #15 CAP 0 Refills Prov: YAS GONZALEZ 06/10/17 Work/School Note: Local [employer] Listing YAS GONZALEZ Jun 10, 2017 19:14
[2017-06-10 19:41] LABS: BILIRUBIN,URINE NEGATIVE (NEGATIVE); KETONES,URINE NEGATIVE (NEGATIVE); LEUKOCYTE ESTERASE ,URINE 1+ (NEGATIVE); NITRITE,URINE NEGATIVE (NEGATIVE); PH,URINE 6 (5-9); PROTEIN,URINE NEGATIVE (NEGATIVE); UROBILINOGEN,URINE NORMAL (NORMAL)
[2017-06-10 19:47] LABS: SQUAMOUS EPITHELIAL CELL,UR 0-2 /HPF
[2017-06-10] MEDS ORDERED: CYCLOBENZAPRINE 10 MG (FLEXERIL) TAB PO STA (19:50)
[2017-06-10] MEDS ORDERED: HYDROcodone/APAP 5 MG/325 MG (LORTAB) TAB PO STA (19:50)
[2017-06-10] MEDS ORDERED: CEPH500C PO (19:53)
[2017-06-10] MEDS ORDERED: PHEN-640 PO (19:53)
[2017-06-10] MEDS ORDERED: NAPR500T PO (19:53)
[2017-06-10] MEDS ORDERED: CYCL10TA9 PO (19:53)
[2017-06-10] MEDS ORDERED: CEPHALEXIN 250 MG (KEFLEX) CAP PO ONE (20:00)
[2017-06-10 20:04] VITALS: BP 122/70
== END 2017-06-10 20:00 | disposition home or self-care (01) ==
LOC: ER 18:36
DX: S39.012A Strain of muscle, fascia and tendon of lower back, initial encounter (principal); N39.0 Urinary tract infection, site not specified; F90.9 Attention-deficit hyperactivity disorder, unspecified type; F41.9 Anxiety disorder, unspecified; F17.210 Nicotine dependence, cigarettes, uncomplicated; Z87.59 Personal history of other complications of pregnancy, childbirth and the puerperium; X58.XXXA Exposure to other specified factors, initial encounter
CPT/HCPCS: 81000; 84703; 87077; 87088; 87186; 99283

== ENCOUNTER → 2018-07-14 | Outpatient (CLI) | payer MEDICAID ==
[~2018-07-14] MED LIST changes: +CEPH500C PO; +NAPR-1071 PO; +PHEN-640 PO
--- NOTE | 2018-07-14 10:55 | Diagnostic Imaging Report ---
PROCEDURE: MRI left joint lower extremity without contrast. TECHNIQUE: Multiplanar, multisequence non contrast-enhanced MRI of the left lower extremity was accomplished. INDICATION: Chronic knee pain. COMPARISON: There are no prior studies available for comparison. FINDINGS: On the proton dense sagittal images, the anterior and posterior cruciate ligaments appear to be intact. The quadriceps and the infrapatellar tendons, the medial collateral ligament, the fibular collateral ligament, the iliotibial band, the biceps femoris tendon, and the medial and lateral retinaculum show no sign of an acute injury. There is no abnormal signal arising from either meniscus to indicate a tear. On the coronal STIR sequence there is no signal abnormality within the osseous structures to suggest bone edema or fracture. The medial and lateral compartments of the knee joint show only mild degenerative disease. However there is moderate narrowing of the lateral aspect of the patellofemoral space and there does appear to be chondromalacia of the patella Grade 1. There is a small joint effusion present. IMPRESSION: 1. There is no evidence for a tear of the medial meniscus. 2. The major ligaments and tendons are intact. 3. There is no acute bony abnormality appreciated but there is at least moderate narrowing of the lateral aspect of the patellofemoral space. 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 There is a small joint effusion present. Dictated by: Dictated on workstation # [id number]
== END ==
LOC: RAD 08:51
PROVIDERS: ATTEND Nurse Practitioner Community Health
DX: M25.462 Effusion, left knee (principal); M22.42 Chondromalacia patellae, left knee
CPT/HCPCS: 73721

== ENCOUNTER 2018-09-19 19:39 | Emergency (ER) | payer MEDICAID ==
[~2018-09-19] VITALS: Ht 175.3 cm; Wt 97.5 kg
--- OUTSIDE RECORDS SUMMARY | 2018-09-19 19:45 | XMS REPORT ---
Author Author ROBERT MORRIS Organization [facility] Address [address] [place] [address] Care Team Providers Care Building Inspector Name Role Phone ROBERT MORRIS Unavailable PROBLEMS Type Condition ICD9-CM Code PRX81-YC Code Onset Dates Condition Status SNOMED Code Problem Pain in left knee M25.562 Active 55203916 Problem Attention deficit hyperactivity disorder (ADHD), predominantly inattentive type F90.0 Active 66575957 Problem Depressive disorder, not elsewhere classified F32.9 Active 83130777 Problem Anxiety state, unspecified F41.1 Active 434258342 Problem Mood disorder F39 Active 77985775 Problem Anxiety F41.9 Active 66774611 ALLERGIES No Known Allergies ENCOUNTERS Encounter Location Date Diagnosis [place] [id number] [place] [address] 53416- 0567 Jul, [place] [address] [address]- [address] Jun, [place] [address] 32021- 4905 Jun, Attention deficit hyperactivity disorder (ADHD), predominantly inattentive type F90.0 ; Anxiety F41.9 ; Tobacco abuse Z72.0 and Tobacco abuse counseling Z71.6 [place] [id number] [place] [address] 72689- 2593 Jun, Attention deficit hyperactivity disorder (ADHD), predominantly inattentive type F90.0 [place] [address] 10385- 3548 Jun, Depressive disorder, not elsewhere classified F32.9 and Anxiety state, unspecified F41.1 [place] [id number] [place] [address] 39500- 3200 Jun, Other chronic pain G89.29 and Pain in left knee M25.562 [facility] [id number] [place] [address] 92272- 2544 May, Mood disorder F39 ; Anxiety F41.9 ; Attention deficit hyperactivity disorder (ADHD), predominantly inattentive type F90.0 [address] infection [address]37.9 [facility] [id number] [place] [address] 25071- 2698 May, Mood disorder F39 [facility] [id number] [place] [address] 33958- 4399 Apr, [facility] [address] 77422- 0644 Apr, Mood disorder F39 ; Attention deficit hyperactivity disorder (ADHD), predominantly inattentive type F90.0 and Anxiety F41.9 [facility] [id number] [place] [address] 37149 -5341 Apr, Acute bilateral thoracic back pain M54.6 [facility] [id number] [place] [address] 33131- 1085 Mar, [facility] [id number] [place] [address] 39343- 5381 Mar, [facility] [id number] [place] [address] 44193- 0791 Mar, [facility] [id number] [place] [address] 03916- 9628 Mar, Attention deficit hyperactivity disorder (ADHD), predominantly inattentive type F90.[address] [facility] [id number] [place] [address] 97468- 3297 Nov, Mood disorder F39 [facility] [id number] [place] [address] 21204- 4200 Oct, Mood disorder F39 [facility] [id number] [place] [address] 03095- 5353 13 Sep, [address] [facility] [address] [place] [address] 82225- 2867 Aug, Mood disorder F39 [facility] [id number] [place] [address] 01412- 9433 Jul, Mood disorder F39 [facility] [id number] [place] [address] 82230- 4302 Jun, Mood disorder F39 [facility] [id number] [place] [address] 85646- 6839 Apr, Other viral agents as the cause of diseases classified elsewhere B97.89 and Acute upper respiratory infection, unspecified J06.9 [facility] [id number] [place] [address] 06680 -8631 Apr, Acute nasopharyngitis (common cold) J00 [facility] [id number] [place] [address] 04248- 2994 Apr, Mood disorder F39 [facility] [id number] [place] [address] 87920- 5146 Apr, [facility] [id number] [place] [address] 44836 -6138 Mar, Acute gastroenteritis K52.9 [facility] [id number] [place] [address] 82590 -3049 Mar, Anxiety F41.9 [facility] [id number] [place] [address] 72697- 7948 Mar, Depressive disorder, not elsewhere classified F32.9 and Anxiety state, unspecified F41.1 [place] [id number] [place] [address] 43757- 0657 December, Dental examination Z01.20 [facility] [id number] [place] [address] 99021- 1915 15 Jun, 2016 Encounter for test Z32.00 [facility] [address] [facility] [id number], [place] [address]69 Feb, Abscess of left leg L02.416 and Wound of left breast, initial encounter S21.002A [facility] [address] [id number] [id number] Jan, Dental examination V72.2 [facility] [address] [id number] [id number] December, Dental examination V72.2 [facility] [id number] [place] [address] [id number] December, Dental examination V72.2 [facility] [id number] [place] [address] [id number] December, Dental examination V72.2 [facility] [address] [address]- 8436 Nov, [facility] [id number] [address] 2956 Nov, [facility] [address] 8527 Oct, [facility] [address] 4676 Oct, [facility] [address] 8172 Oct, [facility] [id number] [address] 2407 18 Oct, 2014 [facility] [address] [facility] [id number]- 2526 12 Oct, 2014 [facility] [address] [facility] [id number]- 8227 [address], [address] [facility] [address] [facility] [id number]- 8159 [address], [address] [facility] [id number] [address]- 8356 Oct, [facility] [address] [id number] 3073 Jun, [facility] [address] [facility] [id number], [place] [address]- 6421 Jun, [facility] [address] [facility] [id number], [place] [address]- 8232 Jun, [facility] [address] [id number], [place] [address]- 2417 Jun, [facility] [address] [facility] [id number] [place] [address]- 2704 Apr, [facility] [address] [facility] [id number], [place] [address]- 4764 Mar, [facility] [address] [facility] [id number], [place] [address]- 8674 Apr, [facility] [address] [facility] [id number], [place] [address]- 2901 Apr, [facility] [address] [facility] [id number], [place] [address]- 1307 May, [facility] [address] [facility] [id number], [place] [address]- 8620 May, [facility] [address] [facility] [id number], [place] [address]- 7232 May, [facility] [address] [facility] [id number], [place] [address]- 8584 Feb, [facility] [address] [facility] [id number][place]- 4562 December, [facility] [address] [facility] [id number][place]- 6719 December, [facility] [address] [facility] [id number][place] 1205 Nov, IMMUNIZATIONS No Known Immunizations SOCIAL HISTORY Never Assessed REASON FOR VISIT ADHD, PT reports she is here to f/u as well as MRI results. PT notes no concerns. - Clifford DSOUZA PLAN OF CARE Activity Details Follow Up 4 Weeks Reason:adhd VITAL SIGNS Height 68 in 2018-07-21 Weight 226.2 lbs 2018-07-21 Temperature 98.2 degrees Fahrenheit 2018-07-21 Heart Rate 111 bpm 2018-07-21 Respiratory Rate 18 2018-07-21 Oximetry 98 % 2018-07-21 BMI 34.39 kg/m2 2018-07-21 Blood pressure systolic 120 mmHg 2018-07-21 Blood pressure diastolic 70 mmHg 2018-07-21 MEDICATIONS Medication Instructions Dosage Frequency Start Date End Date Duration Status Diclofenac Sodium 75 MG Orally Twice a day 1 tablet with food or milk 12h Jun, Oct, 30 day(s) Active Trintellix 20 mg orally once a day 1 tablet 24h Mar, Active Chantix 1 MG Orally Twice a day 1 tablet 12h Jun, 30 day(s) Active Adderall XR 10 MG Orally Once a day 1 capsule in the morning 24h Jun, Active Adderall 10 mg Orally Once a day 1 tablet 24h Jun, Active Xanax 0.5 MG Orally Three times a day 1 tablet as needed 8h 28 days Active Omeprazole 20 mg Orally Once a day 1 capsule 24h Apr, 30 day(s ) Active Vitamin B Complex - Active Vitamin D (Cholecalciferol) 1000 UNIT Orally Once a day 1 capsule 24h Active RESULTS No Results PROCEDURES No Known procedures INSTRUCTIONS MEDICATIONS ADMINISTERED No Known Medications MEDICAL (GENERAL) HISTORY Type Description Date Medical History anxiety Medical History depression Surgical History section x2 Surgical History cholecystectomy Hospitalization History Surgery(s)/Childbirth(s) Hospitalization History anxiety 2011
--- OUTSIDE RECORDS SUMMARY | 2018-09-19 19:45 | XMS REPORT ---
Author Author ROBERT MORRIS Organization [facility] Address [address] [place] [address] Care Team Providers Care Multimedia Project Manager Name Role Phone ROBERT MORRIS Unavailable PROBLEMS Type Condition ICD9-CM Code UQC18-LM Code Onset Dates Condition Status SNOMED Code Problem Pain in left knee M25.562 Active 54325260 Problem Attention deficit hyperactivity disorder (ADHD), predominantly inattentive type F90.0 Active 86798525 Problem Depressive disorder, not elsewhere classified F32.9 Active 96851503 Problem Anxiety state, unspecified F41.1 Active 904243855 Problem Mood disorder F39 Active 73239812 Problem Anxiety F41.9 Active 96920446 ALLERGIES No Information ENCOUNTERS Encounter Location Date Diagnosis [facility] [id number] [place] [address] 34232- 1214 Jul, [facility] [id number] [place] [address] 10429- 5127 Jul, Anxiety F41.9 [facility] [id number] [place] [address] 31580- 3194 Jun, [facility] [id number] [place] [address] 50009- 1924 Jun, Attention deficit hyperactivity disorder (ADHD), predominantly inattentive type F90.0 ; Anxiety F41.9 ; Tobacco abuse Z72.0 and Tobacco abuse counseling Z71.6 [facility] [id number] [place] [address] 03323- 9915 Jun, Attention deficit hyperactivity disorder (ADHD), predominantly inattentive type F90.0 [facility] [id number] [place] [address] 72930- 6687 Jun, Depressive disorder, not elsewhere classified F32.9 and Anxiety state, unspecified F41.1 [facility] [id number] [place] [address] 56529- 2535 12 Jun, 2018 Other chronic pain G89.29 and Pain in left knee M25.562 [facility] [id number] [place] [address] 20054- 7262 29 May, 2018 Mood disorder F39 ; Anxiety F41.9 ; Attention deficit hyperactivity disorder (ADHD), predominantly inattentive type F90.0 and Yeast infection B37.9 [facility] [id number] [place] [address] 73487- 6934 May, Mood disorder F39 [facility] [address] 50536- 0170 18 Apr, 2018 [facility] [id number] [place] [address] 31201- 7589 12 Apr, 2018 Mood disorder F39 ; Attention deficit hyperactivity disorder (ADHD), predominantly inattentive type F90.0 and Anxiety F41.9 [facility] [id number] [place] [address] 67544 -5510 10 Apr, 2018 Acute bilateral thoracic back pain M54.6 [facility] [id number] [place] [address] 86807- 5960 23 Mar, 2018 [facility] [id number] [place] [address] 88539- 2661 2018 [facility] [id number] [place] [address] 73639- 1665 Mar, [facility] [id number] [place] [address] 82285- 0640 Mar, Attention deficit hyperactivity disorder (ADHD), predominantly inattentive type F90.0 and Anxiety F41.9 [facility] [id number] [place] [address] 80592- 0062 27 Nov, 2017 Mood disorder F39 [facility] [address] 20966- 8103 Oct, Mood disorder F39 [facility] [address] [address]- 7439 Sep, Mood disorder F39 [facility] [address] [place] [address] 78228- 2430 Aug, Mood disorder F39 [facility] [id number] [place] [address] 91228- 6108 Jul, Mood disorder F39 [facility] [id number] [place] [address] 56046- 2697 Jun, Mood disorder F39 [facility] [id number] [place] [address] 50213- 5332 Apr, Other viral agents as the cause of diseases classified elsewhere B97.89 and Acute upper respiratory infection, unspecified J06.9 [facility] [id number] [place] [address] 39535 -9372 Apr, Acute nasopharyngitis (common cold) J00 [facility] [id number] [place] [address] 18857- 8094 14 Apr, 2017 Mood disorder F39 [facility] [id number] [place] [address] 80821- 2975 Apr, [facility] [id number] [place] [address] 25635 -6895 Mar, Acute gastroenteritis K52.9 [facility] [id number] [place] [address] 35385 -2099 Mar, Anxiety F41.9 [facility] [id number] [place] [address] 95059- 0559 Mar, Depressive disorder, not elsewhere classified F32.9 and Anxiety state, unspecified F41.1 [facility] [id number] [place] [address] 78597- 3055 December, Dental examination Z01.20 [facility] [address] [place] [address]- 6216 Jun, Encounter for test Z32.00 [facility] [id number] [place] [address] 653227 -9058 Feb, Abscess of left leg L02.416 and Wound of left breast, initial encounter S21.002A [facility] [address] [place] [address] [id number] Jan, Dental examination V72.2 [facility] [id number] [place] [address] [id number] December, Dental examination V72.2 [facility] [address] [id number] December, Dental examination V72.2 [facility] [id number] [place] [address] [id number] December, Dental examination V72.2 [facility] [id number] [place] [address] 37336- 3016 Nov, [facility] [address] [place] [address] 22133- 7737 Nov, [facility] [address] [place] [address] 149092- 4047 Oct, [facility] [address]- 5354 Oct, [facility] [id number] [place] [address] 613139- 3723 Oct, [facility] [address] [place] [address] [id number]- 2765 18 Oct, 2014 [facility] [id number] [place] [address] 415307- 5614 12 Oct, 2014 [facility] [address]- 4360 11 Oct, 2014 [facility] [id number] [place] [address] 82107- 5524 Oct, [facility] [address] [id number] [place] [address]- 5604 Oct, [facility] [place] [facility] [address] [id number] [place] [address]- 7230 Jun, [facility] [place] [facility] [address] [id number] [place] [address]- 7392 Jun, [facility] [place] [facility] [address] [id number] [place] [address]- 0228 Jun, [facility] [place] [facility] [address] [id number] [place] [address]- 0139 Jun, [facility] [place] [facility] [address] [id number] [place] [address]- 5063 Apr, [facility] [place] [facility] [address] [id number] [place] [address]- 5575 Mar, [facility] [place] [facility] [address] [id number] [place] [address]- 6939 Apr, [facility] [place] [facility] [address] [id number] [place] [address]- 5485 Apr, [facility] [place] [facility] [address] [facility] [id number] [place] [address]- 3264 May, [facility] [place] [facility] [address] [id number] [place] [address]- 4927 May, [facility] [place] [facility] [address] [id number] [place] [address]- 4884 May, [facility] [place] [facility] [address] [id number] [place] [address]- 3739 Feb, [facility] [place] [facility] [address] [id number] [place] [address]- 1884 December, [facility] [place] [facility] [address] [id number] [place] [address]- 1368 December, [facility] [place] [facility] [address] [facility] [id number] [place] [address]- 2772 Nov, IMMUNIZATIONS No Known Immunizations SOCIAL HISTORY Never Assessed REASON FOR VISIT Controlled Med Refill PLAN OF CARE VITAL SIGNS MEDICATIONS Medication Instructions Dosage Frequency Start Date End Date Duration Status Xanax 0.5 MG Orally Three times a day 1 tablet as needed 8h 28 days Active RESULTS No Results PROCEDURES No Known procedures INSTRUCTIONS MEDICATIONS ADMINISTERED No Known Medications MEDICAL (GENERAL) HISTORY Type Description Date Medical History anxiety Medical History depression Surgical History section x2 Surgical History cholecystectomy Hospitalization History Surgery(s)/Childbirth(s) Hospitalization History anxiety 2012
--- OUTSIDE RECORDS SUMMARY | 2018-09-19 19:45 | XMS REPORT ---
Author Author ROBERT MORRIS Organization [facility] Address [address] [place] [address] Care Team Providers Care Awning Craftsperson Name Role Phone ROBERT MORRIS Unavailable PROBLEMS Type Condition ICD9-CM Code [id number] Code Onset Dates Condition Status SNOMED Code Problem Pain in left knee M25.562 Active 07998087 Problem Attention deficit hyperactivity disorder (ADHD), predominantly inattentive type F90.0 Active 02321510 Problem Depressive disorder, not elsewhere classified F32.9 Active 66309410 Problem Anxiety state, unspecified F41.1 Active 507056736 Problem Mood disorder F39 Active 55766911 Problem Anxiety F41.9 Active 68945415 ALLERGIES No Information ENCOUNTERS Encounter Location Date Diagnosis [facility] [id number] [place] [address] 37597- 2275 Jul, [facility] [id number] [place] [address] 61999- 7218 Jul, Anxiety F41.9 [facility] [id number] [place] [address] 70129- 9071 Jun, [facility] [id number] [place] [address] 70882- 7634 Jun, Attention deficit hyperactivity disorder (ADHD), predominantly inattentive type F90.0 ; Anxiety F41.9 ; Tobacco abuse Z72.0 and Tobacco abuse counseling Z71.6 [facility] [id number] [place] [address] 62009- 3360 Jun, Attention deficit hyperactivity disorder (ADHD), predominantly inattentive type F90.0 [facility] [id number] [place] [address] 71035- 1758 Jun, Depressive disorder, not elsewhere classified F32.9 and Anxiety state, unspecified F41.1 [facility] [id number] [place] [address] 40343- 3024 12 Jun, 2018 Other chronic pain G89.29 and Pain in left knee M25.562 [facility] [id number] [place] [address] 09448- 3098 29 May, 2018 Mood disorder F39 ; Anxiety F41.9 ; Attention deficit hyperactivity disorder (ADHD), predominantly inattentive type F90.0 and Yeast infection B37.9 [facility] [id number] [place] [address] 89908- 5613 May, Mood disorder F39 [facility] [address] 71133- 9340 18 Apr, 2018 [facility] [id number] [place] [address] 79882- 7706 12 Apr, 2018 Mood disorder F39 ; Attention deficit hyperactivity disorder (ADHD), predominantly inattentive type F90.0 and Anxiety F41.9 [facility] [id number] [place] [address] 24381 -6905 10 Apr, 2018 Acute bilateral thoracic back pain M54.6 [facility] [id number] [place] [address] 58278- 7730 23 Mar, 2018 [facility] [id number] [place] [address] 12528- 7496 2018 [facility] [id number] [place] [address] 81969- 5538 Mar, [facility] [id number] [place] [address] 35194- 8892 Mar, Attention deficit hyperactivity disorder (ADHD), predominantly inattentive type F90.0 and Anxiety F41.9 [facility] [id number] [place] [address] 89985- 2337 27 Nov, 2017 Mood disorder F39 [facility] [address] 08222- 9909 Oct, Mood disorder F39 [facility] [address] [address] 1367 Sep, Mood disorder F39 [facility] [address] [place] [address] 58844- 5867 Aug, Mood disorder F39 [facility] [id number] [place] [address] 59396- 4609 Jul, Mood disorder F39 [facility] [id number] [place] [address] 50289- 8981 Jun, Mood disorder F39 [facility] [id number] [place] [address] 28965- 1010 Apr, Other viral agents as the cause of diseases classified elsewhere B97.89 and Acute upper respiratory infection, unspecified J06.9 [facility] [id number] [place] [address] 20486 -7931 Apr, Acute nasopharyngitis (common cold) J00 [facility] [id number] [place] [address] 65547- 5987 14 Apr, 2017 Mood disorder F39 [facility] [id number] [place] [address] 08851- 9073 Apr, [facility] [id number] [place] [address] 08112 -6465 Mar, Acute gastroenteritis K52.9 [facility] [id number] [place] [address] 94528 -5108 Mar, Anxiety F41.9 [facility] [id number] [place] [address] 36767- 9436 Mar, Depressive disorder, not elsewhere classified F32.9 and Anxiety state, unspecified F41.1 [facility] [id number] [place] [address] 07636- 9198 December, Dental examination Z01.20 [facility] [address] [place] [address] 2526 Jun, Encounter for test Z32.00 [facility] [id number] [place] [address] 476869 -6738 Feb, Abscess of left leg L02.416 and Wound of left breast, initial encounter S21.002A [facility] [address] [place] [address] [id number] Jan, Dental examination V72.2 [facility] [id number] [place] [address] [id number] December, Dental examination V72.2 [facility] [address] [id number] December, Dental examination V72.2 [facility] [id number] [place] [address] [id number] December, Dental examination V72.2 [facility] [id number] [place] [address] 33914- 9816 Nov, [facility] [address] [place] [address] 67112- 8239 Nov, [facility] [address] [place] [address] 922965- 4808 Oct, [facility] [address] [address] 1631 Oct, [facility] [id number] [place] [address] 144560- 1139 Oct, [facility] [address] [place] [address] 96417369- 5217 18 Oct, 2014 [facility] [id number] [place] [address] 280148- 2602 12 Oct, 2014 [facility] [address]- 3326 11 Oct, 2014 [facility] [id number] [place] [address] 53544- 8205 Oct, [facility] [address] [id number] [place] [address]- 7822 Oct, [facility] [place] [facility] [address] [id number] [place] [address]- 8959 Jun, [facility] [place] [facility] [address] [id number] [place] [address]- 8478 Jun, [facility] [place] [facility] [address] [id number] [place] [address]- 2219 Jun, [facility] [place] [facility] [address] [id number] [place] [address]- 8339 Jun, [facility] [place] [facility] [address] [id number] [place] [address]- 1187 Apr, [facility] [place] [facility] [address] [id number] [place] [address]- 4349 Mar, [facility] [place] [facility] [address] [id number] [place] [address]- 8715 Apr, [facility] [place] [facility] [address] [id number] [place] [address]- 1673 Apr, [facility] [place] [facility] [address] [facility] [id number] [place] [address]- 9154 May, [facility] [place] [facility] [address] [id number] [place] [address]- 7942 May, [facility] [place] [facility] [address] [id number] [place] [address]- 4547 May, [facility] [place] [facility] [address] [id number] [place] [address]- 1305 Feb, [facility] [place] [facility] [address] [id number] [place] [address]- 1137 December, [facility] [place] [facility] [address] [id number] [place] [address]- 3807 December, [facility] [place] [facility] [address] [facility] [id number] [place] [address]- 6313 Nov, IMMUNIZATIONS No Known Immunizations SOCIAL HISTORY Never Assessed REASON FOR VISIT Prior Authorization Request PLAN OF CARE VITAL SIGNS MEDICATIONS Unknown Medications RESULTS No Results PROCEDURES No Known procedures INSTRUCTIONS MEDICATIONS ADMINISTERED No Known Medications MEDICAL (GENERAL) HISTORY Type Description Date Medical History anxiety Medical History depression Surgical History section x2 Surgical History cholecystectomy Hospitalization History Surgery(s)/Childbirth(s) Hospitalization History anxiety 2012
--- OUTSIDE RECORDS SUMMARY | 2018-09-19 19:46 | XMS REPORT ---
Author Author ROBERT MORRIS Organization [facility] Address [address] [place] [address] Care Team Providers Care Director Digital Sales Name Role Phone ROBERT MORRIS Unavailable PROBLEMS Type Condition ICD9-CM Code [id number] Code Onset Dates Condition Status SNOMED Code Problem Pain in left knee M25.562 Active 94828864 Problem Attention deficit hyperactivity disorder (ADHD), predominantly inattentive type F90.0 Active 77242659 Problem Depressive disorder, not elsewhere classified F32.9 Active 14031490 Problem Anxiety state, unspecified F41.1 Active 409235666 Problem Mood disorder F39 Active 84913753 Problem Anxiety F41.9 Active 43169883 ALLERGIES No Information ENCOUNTERS Encounter Location Date Diagnosis [id number] [address]41- 2386 Jul, [address] 03057- 2351 Jun, [address] 18894- 9053 Jun, Attention deficit hyperactivity disorder (ADHD), predominantly inattentive type F90.0 ; Anxiety F41.9 ; Tobacco abuse Z72.0 and Tobacco abuse counseling Z71.6 [place] [id number] [place] [address] 77218- 8389 Jun, Attention deficit hyperactivity disorder (ADHD), predominantly inattentive type F90.0 [address] [address] 71999- 4585 Jun, Depressive disorder, not elsewhere classified F32.9 and Anxiety state, unspecified F41.1 [place] [address] 06277- 6453 12 Jun, 2018 Other chronic pain G89.29 and Pain in left knee M25.562 [facility] [id number] [place] [address] 81818- 5511 May, Mood disorder F39 ; Anxiety F41.9 ; Attention deficit hyperactivity disorder (ADHD), predominantly inattentive type F90.0 and Yeast infection B37.9 [facility] [id number] [place] [address] 67218- 4345 May, Mood disorder F39 [facility] [id number] [place] [address] 68179- 4836 Apr, [facility] [id number] [place] [address] 28553- 4240 Apr, Mood disorder F39 ; Attention deficit hyperactivity disorder (ADHD), predominantly inattentive type F90.0 and Anxiety F41.9 [facility] [id number] [place] [address] 81258 -6671 Apr, Acute bilateral thoracic back pain M54.6 [facility] [id number] [place] [address] 95524- 2279 Mar, [facility] [id number] [place] [address] 69305- 4032 Mar, [facility] [id number] [place] [address] 65340- 7850 Mar, [facility] [id number] [place] [address] 98982- 5342 Mar, Attention deficit hyperactivity disorder (ADHD), predominantly inattentive type F90.0 and Anxiety F41.9 [facility] [id number] [place] [address] 69394- 6004 Nov, Mood disorder F39 [facility] [id number] [place] [address] 46210- 5573 Oct, Mood disorder F39 [facility] [id number] [place] [address] 30672- 4016 Sep, Mood disorder F39 [facility] [address] [place] [address] 88984- 0551 Aug, Mood disorder F39 [facility] [id number] [place] [address] 72727- 5107 Jul, Mood disorder F39 [facility] [id number] [place] [address] 08844- 9103 Jun, Mood disorder F39 [facility] [id number] [place] [address] 62747- 8809 Apr, Other viral agents as the cause of diseases classified elsewhere B97.89 and Acute upper respiratory infection, unspecified J06.9 [facility] [id number] [place] [address] 41681 -2172 Apr, Acute nasopharyngitis (common cold) J00 [facility] [id number] [place] [address] 40952- 5191 Apr, Mood disorder F39 [facility] [id number] [place] [address] 30836- 1808 Apr, [facility] [id number] [place] [address] 51293 -3678 Mar, Acute gastroenteritis K52.9 [facility] [id number] [place] [address] 05766 -5984 Mar, Anxiety F41.9 [facility] [id number] [place] [address] 68073- 7074 Mar, Depressive disorder, not elsewhere classified F32.9 and Anxiety state, unspecified F41.1 [place] [id number] [place] [address] 00081- 2878 December, Dental examination Z01.20 [facility] [id number] [place] [address] 44396- 6022 15 Jun, 2016 Encounter for test Z32.00 [facility] [id number] [address]26 Feb, Abscess of left leg L02.416 and Wound of left breast, initial encounter S21.002A [facility] [address] [id number] [id number] Jan, Dental examination V72.2 [facility] [address] [id number] [id number] December, Dental examination V72.2 [facility] [id number] [place] [address] [id number] December, Dental examination V72.2 [facility] [id number] [place] [address] [id number] December, Dental examination V72.2 [facility] [address], [place] [address]- 7326 Nov, [facility] [id number]- 1916 Nov, [facility] [address]- 2567 Oct, [facility] [address] 4476 Oct, [facility] [address]- 6487 Oct, [facility] [address] [facility] [id number]- 7860 18 Oct, 2014 [facility] [address] [facility] [id number][place]- 6520 12 Oct, 2014 [facility] [address] [facility] [id number][place]- 3121 11 Oct, 2014 [facility] [address] [facility] [id number][place]- 6906 10 Oct, 2014 [facility] [address] [facility] [id number][place]- 5622 Oct, [facility] [address] [facility] [id number], [place] [address]- 8473 Jun, [facility] [address] [facility] [id number], [place] [address]- 0086 Jun, [facility] [address] [facility] [id number], [place] [address]- 4357 Jun, [facility] [address] [facility] [id number], [place] [address]- 1754 Jun, [facility] [address] [facility] [id number] [place] [address]- 1009 Apr, [facility] [address] [facility] [id number], [place] [address]- 3214 Mar, [facility] [address] [facility] [id number][place]- 5710 Apr, [facility] [address] [facility] [id number], [place] [address]- 5632 Apr, [facility] [address] [facility] [id number], [place] [address]- 2069 May, [facility] [address] [facility] [id number], [place] [address]- 1002 May, [facility] [address] [facility] [id number][place]- 7419 May, [facility] [address] [facility] [id number], [place] [address]- 7302 Feb, [facility] [address] [facility] [id number], [place] [address]- 8218 December, [facility] [address] [facility] [id number], [place] [address]- 2255 December, [facility] [address] [facility] [id number], [place]17[place]- 6682 Nov, IMMUNIZATIONS No Known Immunizations SOCIAL HISTORY Never Assessed REASON FOR VISIT Controlled Med Refill PLAN OF CARE VITAL SIGNS MEDICATIONS Medication Instructions Dosage Frequency Start Date End Date Duration Status Adderall 10 mg Orally Twice a day 1 tablet 12h 29 May, 2018 Active RESULTS No Results PROCEDURES No Known procedures INSTRUCTIONS MEDICATIONS ADMINISTERED No Known Medications MEDICAL (GENERAL) HISTORY Type Description Date Medical History anxiety Medical History depression Surgical History section x2 Surgical History cholecystectomy Hospitalization History Surgery(s)/Childbirth(s) Hospitalization History anxiety 2012
--- OUTSIDE RECORDS SUMMARY | 2018-09-19 19:46 | XMS REPORT ---
Author Author ROBERT MORRIS Organization [facility] Address [address] [place] [address] Care Team Providers Care Gear Machine Operator General Name Role Phone ROBERT MORRIS Unavailable PROBLEMS Type Condition ICD9-CM Code [id number] Code Onset Dates Condition Status SNOMED Code Problem Attention deficit hyperactivity disorder (ADHD), predominantly inattentive type F90.0 Active 75124061 Problem Mood disorder F39 Active 18408876 Problem Anxiety state, unspecified F41.1 Active 284633761 Problem Anxiety F41.9 Active 73782162 Problem Depressive disorder, not elsewhere classified F32.9 Active 21811791 ALLERGIES No Known Allergies ENCOUNTERS Encounter Location Date Diagnosis [facility] [address] [address] Jun, [facility] [id number] [place] [address]5042- 4525 Jun, [facility] [address] [address]- [address] May, Mood disorder F39 ; Anxiety F41.9 ; Attention deficit hyperactivity disorder (ADHD), predominantly inattentive type F90.0 and Yeast infection B37.9 [facility] [id number] [place] [address] 67082- 7013 May, Mood disorder F39 [facility] [id number] [place] [address] 78021- 7351 Apr, [facility] [address] [address]- [address] Apr, Mood disorder F39 ; Attention deficit hyperactivity disorder (ADHD), predominantly inattentive type F90.0 and Anxiety F41.9 [facility] [id number] [place] [address] 77645 -8534 Apr, Acute bilateral thoracic back pain M54.6 [facility] [id number] [place] [address] 70319- 2194 Mar, [facility] [id number] [place] [address] 23881- 4821 Mar, [facility] [id number] [place] [address] 88599- 8668 Mar, [facility] [address] [address]- 1484 Mar, Attention deficit hyperactivity disorder (ADHD), predominantly inattentive type F90.0 and Anxiety F41.9 [facility] [id number] [place] [address] 73045- 0918 Nov, Mood disorder F39 [facility] [id number] [place] [address] 07192- 1398 Oct, Mood disorder F39 [facility] [id number] [place] [address] 72912- 4402 Sep, Mood disorder F39 [facility] [id number] [place] [address] 47500- 4200 Aug, Mood disorder F39 [facility] [id number] [place] [address] 03789- 3676 Jul, Mood disorder F39 [facility] [id number] [place] [address] 69800- 4391 Jun, Mood disorder F39 [facility] [id number] [place] [address] 53532- 2606 Apr, Other viral agents as the cause of diseases classified elsewhere B97.89 and Acute upper respiratory infection, unspecified J06.9 [facility] [address] [address] Apr, Acute nasopharyngitis (common cold) J00 [facility] [address] [place] [address]- 1338 14 Apr, 2017 Mood disorder F39 [facility] [address] [place] [address] 70905- 2945 12 Apr, 2017 [facility] [address] [place] [address] 62658 -4168 18 Mar, 2017 Acute gastroenteritis K52.9 [facility] [id number] [place] [address] 84908 -1152 Mar, Anxiety F41.9 [facility] [id number] [place] [address] 98671- 9374 Mar, Depressive disorder, not elsewhere classified F32.9 and Anxiety state, unspecified F41.1 [facility] [address] [place] [address] 93649- 9293 December, Dental examination Z01.20 [facility] [id number] [place] [address] 22685- 0716 15 Jun, 2016 Encounter for test Z32.00 [facility] [id number] [place] [address] 85711 -5637 Feb, Abscess of left leg L02.416 and Wound of left breast, initial encounter S21.002A [facility] [id number] [place] [address] [id number] Jan, Dental examination V72.2 [facility] [address] [place] [address] [id number] December, Dental examination V72.2 [facility] [address] [place] [address] [phone] December, Dental examination V72.2 [facility] [id number] [place] [address] [phone] December, Dental examination V72.2 [facility] [address] [place] [address] 01483- 9673 14 Nov, 2014 [facility] [id number] [place] [address] 7352 13 Nov, 2014 [facility] [address] [id number] [place] [address]- 7069 25 Oct, 2014 [facility] [place] [facility] [address] [id number] [place] [address]- 8326 25 Oct, 2014 [facility] [address] [id number] [place] [address]- 5245 20 Oct, 2014 [facility] [place] [facility] [address] [id number] [place] [address]- 5347 18 Oct, 2014 [facility] [address] [id number] [place] [address]- 2067 12 Oct, 2014 [facility] [address] [id number] [place] [address]- 8514 11 Oct, 2014 [facility] [address] [id number] [place] [address]- 4074 10 Oct, 2014 [facility] [address] [id number] [place] [address]- 0573 10 Oct, 2014 [facility] [address] [id number] [place] [address]- 8448 Jun, [facility] [address] [id number] [place] [address]- 5331 Jun, [facility] [place] [facility] [address] [id number] [place] [address]- 0165 Jun, [facility] [place] [facility] [address] [id number] [place] [address]- 1064 Jun, [facility] [place] [facility] [address] [id number] [place] [address]- 1572 Apr, [facility] [place] [facility] [address] [id number] [place] [address]- 9756 Mar, [facility] [place] [facility] [address] [id number] [place] [address]- 3032 Apr, [facility] [address] [facility] [id number] [address] Apr, [facility] [id number] [address]- 5656 May, [facility] [id number] [address]- 9737 May, [facility] [address] [address]- 5666 May, [facility] [id number] [address]- 6916 Feb, [facility] [address] [address]- 7436 December, [facility] [address] [address]- 46[address] December, [facility] [id number] [address]- 2896 Nov, IMMUNIZATIONS No Known Immunizations SOCIAL HISTORY Never Assessed REASON FOR VISIT ADHD Med review Martin murrieta PLAN OF CARE Activity Details Follow Up 4 Weeks Reason: VITAL SIGNS Height 68 in 2018-06-21 Weight 222.0 lbs 2018-06-21 Temperature 98.0 degrees Fahrenheit 2018-06-21 Heart Rate 110 bpm 2018-06-21 Respiratory Rate 18 2018-06-21 BMI 33.75 kg/m2 2018-06-21 Blood pressure systolic 118 mmHg 2018-06-21 Blood pressure diastolic 86 mmHg 2018-06-21 MEDICATIONS Medication Instructions Dosage Frequency Start Date End Date Duration Status Omeprazole 20 mg Orally Once a day 1 capsule 24h Apr, 30 day(s ) Active Diflucan 200 MG Orally Once a day 1 tablet 24h May, Jun, 10 day(s) Active Adderall 10 mg Orally Twice a day 1 tablet 12h May, Active Trintellix 20 mg orally once a day 1 tablet 24h Mar, Active Vitamin B Complex - Active Vitamin D (Cholecalciferol) 1000 UNIT Orally Once a day 1 capsule 24h Active Xanax 0.5 MG Orally Three times a day 1 tablet as needed 8h 28 days Active RESULTS No Results PROCEDURES No Known procedures INSTRUCTIONS MEDICATIONS ADMINISTERED No Known Medications MEDICAL (GENERAL) HISTORY Type Description Date Medical History anxiety Medical History depression Surgical History section x2 Surgical History cholecystectomy Hospitalization History Surgery(s)/Childbirth(s) Hospitalization History anxiety 2012
--- OUTSIDE RECORDS SUMMARY | 2018-09-19 19:46 | XMS REPORT ---
Author Author ROBERT MORRIS Organization [facility] Address [address] [place] [address] Care Team Providers Care Line Closer Name Role Phone ROBERT MORRIS Unavailable PROBLEMS Type Condition ICD9-CM Code [id number] Code Onset Dates Condition Status SNOMED Code Problem Pain in left knee M25.562 Active 23578163 Problem Attention deficit hyperactivity disorder (ADHD), predominantly inattentive type F90.0 Active 76246714 Problem Depressive disorder, not elsewhere classified F32.9 Active 10017439 Problem Anxiety state, unspecified F41.1 Active 005003296 Problem Mood disorder F39 Active 79849732 Problem Anxiety F41.9 Active 87618558 ALLERGIES No Known Allergies ENCOUNTERS Encounter Location Date Diagnosis [place] [id number] [address] Jun, [place] [address] [address] Jun, [place] [address] [address]- [address]4 Jun, Other chronic pain G89.29 and Pain in left knee M25.562 [facility] [address] [address]- 2208 May, Mood disorder F39 ; Anxiety F41.9 ; Attention deficit hyperactivity disorder (ADHD), predominantly inattentive type F90.0 and Yeast infection B37.9 [facility] [address] [address]- 1326 May, Mood disorder F39 [facility] [address] [address]- 1676 Apr, [facility] [address] 938[address]- 7155 Apr, Mood disorder F39 ; Attention deficit hyperactivity disorder (ADHD), predominantly inattentive type F90.0 and Anxiety F41.9 [facility] [id number] [place] [address] 07512 -4217 10 Apr, 2018 Acute bilateral thoracic back pain M54.6 [facility] [id number] [place] [address] 93124- 6645 Mar, [facility] [id number] [place] [address] 73904- 5914 Mar, [facility] [id number] [place] [address] 00472- 7165 Mar, [facility] [id number] [place] [address] 89665- 1224 Mar, Attention deficit hyperactivity disorder (ADHD), predominantly inattentive type F90.0 and Anxiety F41.9 [facility] [id number] [place] [address] 46290- 9465 Nov, Mood disorder F39 [facility] [id number] [place] [address] 44102- 8485 Oct, Mood disorder F39 [facility] [id number] [place] [address] 98837- 0478 Sep, Mood disorder F39 [facility] [id number] [place] [address] 04253- 5405 Aug, Mood disorder F39 [facility] [id number] [place] [address] 77363- 9396 Jul, Mood disorder F39 [facility] [id number] [place] [address] 31340- 3068 Jun, Mood disorder F39 [facility] [address] [place] [address] 60570- 2409 Apr, Other viral agents as the cause of diseases classified elsewhere B97.89 and Acute upper respiratory infection, unspecified J06.9 [facility] [address] [place] [address] 23557 -6836 21 Apr, 2017 Acute nasopharyngitis (common cold) J00 [facility] [id number] [place] [address] 28816- 2681 14 Apr, 2017 Mood disorder F39 [facility] [id number] [place] [address] 89446- 7615 12 Apr, 2017 [facility] [id number] [place] [address] 44564 -2239 18 Mar, 2017 Acute gastroenteritis K52.9 [facility] [id number] [place] [address] 32498 -0159 Mar, Anxiety F41.9 [place] [id number] [place] [address] 14598- 3912 Mar, Depressive disorder, not elsewhere classified F32.9 and Anxiety state, unspecified F41.1 [facility] [id number] [place] [address] 93650- 3259 December, Dental examination Z01.20 [place] [id number] [place] [address] 45138- 5800 15 Jun, 2016 Encounter for test Z32.00 [facility] [id number] [place] [address] 87608 -2463 Feb, Abscess of left leg L02.416 and Wound of left breast, initial encounter S21.002A [facility] [address] [place] [address] [id number] Jan, Dental examination V72.2 [facility] [address] [id number] December, Dental examination V72.2 [facility] [id number] [place] [address] [id number] December, Dental examination V72.2 [facility] [address] [address] December, Dental examination V72.2 [facility] [address] [id number] [place] [address]- 1845 14 Nov, 2014 [facility] [address] [id number] [place]- 9190 Nov, [facility] [address] [id number] [place] [address]- 5989 25 Oct, 2014 [facility] [address] [id number] [place] [address]- 1495 25 Oct, 2014 [facility] [address] [id number] [place] [address]- 9050 20 Oct, 2014 [facility] [address] [id number] [place] [address]- 5909 18 Oct, 2014 [facility] [address] [facility] [id number] [place] [address]- 1301 12 Oct, 2014 [facility] [address] [id number] [place] [address]- 8781 11 Oct, 2014 [facility] [id number] [place] [address]- 5891 10 Oct, 2014 [facility] [address] [facility] [id number] [place] [address]- 5637 10 Oct, 2014 [facility] [address] [facility] [id number] [place] [address]- 3677 Jun, [facility] [address] [id number] [place] [address] Jun, [facility] [address] [id number] [place] [address]- 5069 Jun, [facility] [place] [facility] [address] [facility] [id number] [place]- 6526 Jun, [facility] [address] [id number] [place] [address]- 5709 Apr, [facility] [id number] [address]- 7843 Mar, [facility] [id number] [address]- 9158 Apr, [facility] [id number] [address]- 1450 Apr, [facility] [address] [address]- 2826 May, [facility] [address] 5335 May, [facility] [address] [address]- 5653 May, [facility] [address] [address]- 1100 Feb, [facility] [address] [address]- 4465 December, [facility] [address] [address]- 0599 December, [facility] [id number] 0071 Nov, IMMUNIZATIONS No Known Immunizations SOCIAL HISTORY Never Assessed REASON FOR VISIT pt hurt knee a few days ago, xray showed nothing wrong, pt wants a MRI MEET Beck PLAN OF CARE Activity Details Pending Test MRI : Knee, Left w/o contrast VITAL SIGNS Height 68 in 2018-07-05 Weight 227.1 lbs 2018-07-05 Temperature 98.1 degrees Fahrenheit 2018-07-05 Heart Rate 96 bpm 2018-07-05 Respiratory Rate 18 2018-07-05 BMI 34.53 kg/m2 2018-07-05 Blood pressure systolic 120 mmHg 2018-07-05 Blood pressure diastolic 86 mmHg 2018-07-05 MEDICATIONS Medication Instructions Dosage Frequency Start Date End Date Duration Status Trintellix 20 mg orally once a day 1 tablet 24h Mar, Active Vitamin D (Cholecalciferol) 1000 UNIT Orally Once a day 1 capsule 24h Active Omeprazole 20 mg Orally Once a day 1 capsule 24h 19 Apr, 2018 30 day(s ) Active Diclofenac Sodium 75 MG Orally Twice a day 1 tablet with food or milk 12h Jun, Oct, 30 day(s) Active Xanax 0.5 MG Orally Three times a day 1 tablet as needed 8h 28 days Active Adderall 10 mg Orally Twice a day 1 tablet 12h 29 May, 2018 Active Vitamin B Complex - Active RESULTS No Results PROCEDURES No Known procedures INSTRUCTIONS MEDICATIONS ADMINISTERED No Known Medications MEDICAL (GENERAL) HISTORY Type Description Date Medical History anxiety Medical History depression Surgical History section x2 Surgical History cholecystectomy Hospitalization History Surgery(s)/Childbirth(s) Hospitalization History anxiety 2012
--- OUTSIDE RECORDS SUMMARY | 2018-09-19 19:46 | XMS REPORT ---
Author Author KUMARMARINOJANELLE [facility] [address] Address [address] [place] [address] Care Team Providers Care Noxious Weeds And Pest Inspector Name Role Phone MELO HEATH Unavailable PROBLEMS Type Condition ICD9-CM Code [id number] Code Onset Dates Condition Status SNOMED Code Problem Pain in left knee M25.562 Active 24543679 Problem Attention deficit hyperactivity disorder (ADHD), predominantly inattentive type F90.0 Active 42104170 Problem Depressive disorder, not elsewhere classified F32.9 Active 06532643 Problem Anxiety state, unspecified F41.1 Active 773285699 Problem Mood disorder F39 Active 00129070 Problem Anxiety F41.9 Active 23593518 ALLERGIES No Information ENCOUNTERS Encounter Location Date Diagnosis [place] [id number] [place] [address] 59363- 4536 Jul, [place] [address] 46283- 4344 Jun, [place] [id number] [place] [address] 38788- 9647 Jun, Attention deficit hyperactivity disorder (ADHD), predominantly inattentive type F90.0 ; Anxiety F41.9 ; Tobacco abuse Z72.0 and Tobacco abuse counseling Z71.6 [place] [id number] [place] [address] 53130- 9037 Jun, Attention deficit hyperactivity disorder (ADHD), predominantly inattentive type F90.0 [place] [address] 57791- 3633 Jun, Depressive disorder, not elsewhere classified F32.9 and Anxiety state, unspecified F41.1 [place] [address] 05423- 1089 Jun, Other chronic pain G89.29 and Pain in left knee M25.562 [facility] [id number] [place] [address] 29268- 9739 May, Mood disorder F39 ; Anxiety F41.9 ; Attention deficit hyperactivity disorder (ADHD), predominantly inattentive type F90.0 and Yeast infection B37.9 [facility] [address] 00604- 8425 May, Mood disorder F39 [facility] [address] 60905- 7255 Apr, [facility] [address] 17228- 8291 Apr, Mood disorder F39 ; Attention deficit hyperactivity disorder (ADHD), predominantly inattentive type F90.0 and Anxiety F41.9 [facility] [address] 75160 -3497 Apr, Acute bilateral thoracic back pain M54.6 [facility] [address] 12083- 6961 Mar, [facility] [address] 20816- 3322 Mar, [facility] [id number] [place] [address] 51102- 5206 Mar, [facility] [id number] [place] [address] 34263- 2285 Mar, Attention deficit hyperactivity disorder (ADHD), predominantly inattentive type F90.0 and Anxiety F41.9 [facility] [id number] [place] [address] 32320- 7532 Nov, Mood disorder F39 [facility] [id number] [place] [address] 65887- 0930 14 Oct, 2017 Mood disorder F39 [facility] [id number] [place] [address] 52619- 0024 Sep, Mood disorder F39 [facility] [address] [address]- 8296 Aug, Mood disorder F39 [facility] [id number] [place] [address] 78249- 5180 Jul, Mood disorder F39 [facility] [id number] [place] [address] 39945- 1125 Jun, Mood disorder F39 [facility] [id number] [place] [address] 39225- 0749 Apr, Other viral agents as the cause of diseases classified elsewhere B97.89 and Acute upper respiratory infection, unspecified J06.9 [facility] [id number] [place] [address] 03866 -3991 Apr, Acute nasopharyngitis (common cold) J00 [place] [id number] [place] [address] 17900- 6298 14 Apr, 2017 Mood disorder F39 [facility] [address] [place] [address] 16913- 2118 Apr, [facility] [id number] [place] [address] 40985 -5735 Mar, Acute gastroenteritis K52.9 [facility] [id number] [place] [address] 44199 -7414 Mar, Anxiety F41.9 [facility] [id number] [place] [address] 78906- 3366 Mar, Depressive disorder, not elsewhere classified F32.9 and Anxiety state, unspecified F41.1 [place] [id number] [place] [address] 31565- 8552 December, Dental examination Z01.20 [place] [address] [address]- 0604 15 Jun, 2016 Encounter for test Z32.00 [facility] [address] [address] Feb, Abscess of left leg L02.416 and Wound of left breast, initial encounter S21.002A [facility] [address] [id number] Jan, Dental examination V72.2 [facility] [id number] [place] [address] [id number] December, Dental examination V72.2 [facility] [address] [place] [address] [id number] December, Dental examination V72.2 [facility] [id number] [place] [address] [id number] December, Dental examination V72.2 [facility] [address] [place] [address] 72896- 3016 Nov, [facility] [address] [place] [address] 11749- 8856 Nov, [facility] [address] [address] 7817 Oct, [facility] [address] 2716 Oct, [facility] [address]- 2540 Oct, [facility] [address] [address]- 8789 18 Oct, 2014 [facility] [address] [facility] [id number] [address]14 12 Oct, 2014 [facility] [id number] [address]- 1986 11 Oct, 2014 [facility] [address] 7023 10 Oct, 2014 [facility] [id number] [place] [address] 60842- 8785 Oct, [facility] [address] [facility] [id number] [place] [address]- 6154 Jun, [facility] [address] [facility] [id number] [address]- 2276 Jun, [facility] [address] [place] [address]- 3530 Jun, [facility] [address] [facility] [id number] [address]- 0835 Jun, [facility] [id number] [place] [address]- 4371 Apr, [facility] [address] [facility] [id number] [place] [address]- 0943 Mar, [facility] [address] [address]- 6301 Apr, [facility] [id number] [address]- 9655 Apr, [facility] [address] [address]- 7099 May, [facility] [id number] [address]- 6444 May, [facility] [address] [address]- 9517 May, [facility] [address] [facility] [id number] [address]- 5611 Feb, [facility] [id number] [address]- 9143 December, [facility] [address] [facility] [id number] [place]- 6257 December, [facility] [id number]10 Nov, IMMUNIZATIONS No Known Immunizations SOCIAL HISTORY Never Assessed REASON FOR VISIT Intake [place] PLAN OF CARE Activity Details Follow Up prn Reason: VITAL SIGNS Height 68 in 2018-07-16 Weight 227 lbs 2018-07-16 Heart Rate 96 bpm 2018-07-16 Respiratory Rate 18 2018-07-16 BMI 34.51 kg/m2 2018-07-16 Blood pressure systolic 118 mmHg 2018-07-16 Blood pressure diastolic 74 mmHg 2018-07-16 MEDICATIONS Medication Instructions Dosage Frequency Start Date End Date Duration Status Diclofenac Sodium 75 MG Orally Twice a day 1 tablet with food or milk 12h 12 Jun, 2018 Oct, 30 day(s) Active Trintellix 20 mg orally once a day 1 tablet 24h 09 Mar, 2017 Active Omeprazole 20 mg Orally Once a day 1 capsule 24h Apr, 30 day(s ) Active Vitamin B Complex - Active Vitamin D (Cholecalciferol) 1000 UNIT Orally Once a day 1 capsule 24h Active Xanax 0.5 MG Orally Three times a day 1 tablet as needed 8h 28 days Active Adderall 10 mg Orally Twice a day 1 tablet 12h May, Active RESULTS No Results PROCEDURES No Known procedures INSTRUCTIONS MEDICATIONS ADMINISTERED No Known Medications MEDICAL (GENERAL) HISTORY Type Description Date Medical History anxiety Medical History depression Surgical History section x2 Surgical History cholecystectomy Hospitalization History Surgery(s)/Childbirth(s) Hospitalization History anxiety 2011
--- OUTSIDE RECORDS SUMMARY | 2018-09-19 19:46 | XMS REPORT ---
Author Author ROBERT MORRIS Organization [facility] Address [address] [place] [address] Care Team Providers Care Apprentice Stylist Name Role Phone ROBERT MORRIS Unavailable PROBLEMS Type Condition ICD9-CM Code [id number] Code Onset Dates Condition Status SNOMED Code Problem Attention deficit hyperactivity disorder (ADHD), predominantly inattentive type F90.0 Active 59152350 Problem Mood disorder F39 Active 52385723 Problem Anxiety state, unspecified F41.1 Active 613432545 Problem Anxiety F41.9 Active 81273310 Problem Depressive disorder, not elsewhere classified F32.9 Active 88109316 ALLERGIES No Information ENCOUNTERS Encounter Location Date Diagnosis [facility] [address] [address]- 7163 May, [facility] [id number] [place] [address] 53334- 4378 May, Mood disorder F39 [facility] [id number] [place] [address] 75319- 2140 Apr, [facility] [id number] [place] [address] 57965- 1294 Apr, Mood disorder F39 ; Attention deficit hyperactivity disorder (ADHD), predominantly inattentive type F90.0 and Anxiety F41.9 [facility] [id number] [place] [address] 74142 -3760 Apr, Acute bilateral thoracic back pain M54.6 [facility] [address] 43412- 4289 Mar, [facility] [id number] [place] [address] 37692- 8179 Mar, [facility] [address] 79508- 7396 Mar, [facility] [address] [place] [address] 34689- 6875 Mar, Attention deficit hyperactivity disorder (ADHD), predominantly inattentive type F90.0 and Anxiety F41.9 [facility] [id number] [place] [address] 46019- 5570 Nov, Mood disorder F39 [facility] [id number] [place] [address] 61716- 8632 Oct, Mood disorder F39 [facility] [id number] [place] [address] 88243- 2192 Sep, Mood disorder F39 [facility] [id number] [place] [address] 70685- 0608 Aug, Mood disorder F39 [facility] [id number] [place] [address] 13299- 4269 Jul, Mood disorder F39 [facility] [id number] [place] [address] 24852- 0772 Jun, Mood disorder F39 [facility] [id number] [place] [address] 88878- 7627 Apr, Other viral agents as the cause of diseases classified elsewhere B97.89 and Acute upper respiratory infection, unspecified J06.9 [facility] [id number] [place] [address] 35019 -7242 Apr, Acute nasopharyngitis (common cold) J00 [facility] [address] [place] [address] 02611- 4998 14 Apr, 2017 Mood disorder F39 [facility] [id number] [place] [address] 73451- 6269 12 Apr, 2017 [facility] [address] [place] [address] 07941 -1566 18 Mar, 2017 Acute gastroenteritis K52.9 [facility] [address] [address] -8636 Mar, Anxiety F41.9 [facility] [id number] [place] [address] 16353- 7420 Mar, Depressive disorder, not elsewhere classified F32.9 and Anxiety state, unspecified F41.1 [facility] [address] [place] [address] 38283- 9651 December, Dental examination Z01.20 [facility] [id number] [place] [address] 87265- 9980 Jun, Encounter for test Z32.00 [facility] [id number] [place] [address] 53196 -9556 Feb, Abscess of left leg L02.416 and Wound of left breast, initial encounter S21.002A [facility] [id number] [place] [address] [id number] Jan, Dental examination V72.2 [facility] [id number] [place] [address] [phone] December, Dental examination V72.2 [facility] [id number] [place] [address] [id number] December, Dental examination V72.2 [facility] [id number] [place] [address] [id number] December, Dental examination V72.2 [facility] [address] [place] [address] 77700- 1646 Nov, [facility] [id number] [place] [address] 48875- 9096 Nov, [facility] [id number] [place] [address] 30588- 9506 Oct, [facility] [address] [place] [address] 506829- 8712 Oct, [facility] [address] [place] [address]- 0216 20 Oct, 2014 [facility] [place] [facility] [address] [id number] [place] [address]- 0748 18 Oct, 2014 [facility] [place] [facility] [address] [id number] [place] [address]- 5943 12 Oct, 2014 [facility] [place] [facility] [address] [id number] [place] [address]- 2831 11 Oct, 2014 [facility] [place] [facility] [address] [id number] [place] [address]- 9460 10 Oct, 2014 [facility] [place] [facility] [address] [id number] [place] [address]- 4090 10 Oct, 2014 [facility] [place] [facility] [address] [id number] [place] [address]- 5668 Jun, [facility] [place] [facility] [address] [id number] [place] [address]- 9176 Jun, [facility] [place] [facility] [address] [id number] [place] [address]- 8621 Jun, [facility] [place] [facility] [address] [id number] [place] [address]- 8010 Jun, [facility] [place] [facility] [address] [facility] [id number] [place] [address]- 0783 Apr, [facility] [place] [facility] [address] [id number] [place] [address]- 5677 Mar, [facility] [place] [facility] [address] [id number] [place] [address]- 2389 19 Apr, 2012 [facility] [place] [facility] [address] [id number] [place] [address]- 9615 13 Apr, 2012 [facility] [place] [facility] [address] [id number] [place] [address]- 6672 May, [facility] [place] [facility] [address] [id number] [place] [address]- 1446 May, [facility] [address] [facility] [id number] [address]- 0426 May, [facility] [id number] [address]- 4536 Feb, [facility] [address] [address]- 8686 December, [facility] [address] [address]- 3546 December, [facility] [address] [facility] [id number] [address]- 7923 Nov, IMMUNIZATIONS No Known Immunizations SOCIAL HISTORY [...]
--- OUTSIDE RECORDS SUMMARY | 2018-09-19 19:46 | XMS REPORT ---
Author Author ROBERT MORRIS Organization [facility] Address [address] [place] [address] Care Team Providers Care Life Insurance Agent Name Role Phone ROBERT MORRIS Unavailable PROBLEMS Type Condition ICD9-CM Code [id number] Code Onset Dates Condition Status SNOMED Code Problem Attention deficit hyperactivity disorder (ADHD), predominantly inattentive type F90.0 Active 40918817 Problem Mood disorder F39 Active 07578707 Problem Anxiety state, unspecified F41.1 Active 509543994 Problem Anxiety F41.9 Active 63721161 Problem Depressive disorder, not elsewhere classified F32.9 Active 48369838 ALLERGIES No Information ENCOUNTERS Encounter Location Date Diagnosis [facility] [address] [address] May, [facility] [id number] [place] [address] 48067- 4334 Apr, [facility] [address] [address]- 2284 12 Apr, 2018 Mood disorder F39 ; Attention deficit hyperactivity disorder (ADHD), predominantly inattentive type F90.0 and Anxiety F41.9 [facility] [id number] [place] [address] 05574 -9310 Apr, Acute bilateral thoracic back pain M54.6 [facility] [id number] [place] [address] 22829- 9372 Mar, [facility] [address] [address]- 6357 Mar, [facility] [address] 21909- 3870 Mar, [facility] [address] 52660- 8477 Mar, Attention deficit hyperactivity disorder (ADHD), predominantly inattentive type F90.0 and Anxiety F41.9 [facility] [id number] [place] [address] 65581- 5454 Nov, Mood disorder F39 [facility] [id number] [place] [address] 25791- 8623 Oct, Mood disorder F39 [facility] [id number] [place] [address] 71941- 5564 Sep, Mood disorder F39 [facility] [id number] [place] [address] 12530- 0390 Aug, Mood disorder F39 [facility] [id number] [place] [address] 14069- 2429 Jul, Mood disorder F39 [facility] [id number] [place] [address] 35134- 9903 Jun, Mood disorder F39 [facility] [id number] [place] [address] 67702- 6217 Apr, Other viral agents as the cause of diseases classified elsewhere B97.89 and Acute upper respiratory infection, unspecified J06.9 [facility] [address] [place] [address] 71129 -8603 Apr, Acute nasopharyngitis (common cold) J00 [facility] [id number] [place] [address] 06363- 1304 14 Apr, 2017 Mood disorder F39 [facility] [address] [place] [address] 45445- 3667 Apr, [facility] [id number] [place] [address] 15683 -8312 Mar, Acute gastroenteritis K52.9 [facility] [address] [place] [address] 09095- 8650 Mar, Depressive disorder, not elsewhere classified F32.9 and Anxiety state, unspecified F41.1 [facility] [address] [address] Mar, Anxiety F41.9 [facility] [id number] [place] [address] 893514- 9367 December, Dental examination Z01.20 [facility] [id number] [place] [address] 87865- 5520 Jun, Encounter for test Z32.00 [facility] [id number] [place] [address] 21545 -2976 Feb, Abscess of left leg L02.416 and Wound of left breast, initial encounter S21.002A [facility] [id number] [place] [address] [id number] Jan, Dental examination V72.2 [facility] [id number] [place] [address] [id number] December, Dental examination V72.2 [facility] [id number] [place] [address] [id number] December, Dental examination V72.2 [facility] [id number] [place] [address] [id number] December, Dental examination V72.2 [facility] [address] [address]- 6964 Nov, [facility] [id number] [place] [address] 48086- 7986 Nov, [facility] [id number] [place] [address] 07520- 1136 Oct, [facility] [id number] [place] [address] 54311540- 7776 Oct, [facility] [address] [address]- 5114 Oct, [facility] [id number] [place] [address] 52263- 3365 18 Oct, 2014 [facility] [place] [facility] [address] [id number] [place] [address]- 3953 12 Oct, 2014 [facility] [place] [facility] [address] [id number] [place] [address]- 7772 11 Oct, 2014 [facility] [place] [facility] [address] [facility] [id number] [place] [address]- 4279 10 Oct, 2014 [facility] [place] [facility] [address] [id number] [place] [address]- 8606 10 Oct, 2014 [facility] [place] [facility] [address] [id number] [place] [address]- 5041 Jun, [facility] [place] [facility] [address] [id number] [place] [address]- 5131 Jun, [facility] [place] [facility] [address] [facility] [id number] [place] [address]- 7089 Jun, [facility] [place] [facility] [address] [id number] [place] [address]- 4469 Jun, [facility] [place] [facility] [address] [id number] [address]- 2670 Apr, [facility] [place] [facility] [address] [facility] [id number] [place] [address]- 4991 Mar, [facility] [place] [facility] [address] [id number] [address]- 3086 19 Apr, 2012 [facility] [place] [facility] [address] [id number] [place] [address]- 0665 13 Apr, 2012 [facility] [place] [facility] [address] [id number] [place] [address]- 2204 May, [facility] [place] [facility] [address] [facility] [id number] [place] [address]- 9283 May, [facility] [place] [facility] [address] [facility] [id number] [place] [address]- 3261 May, [facility] [place] [facility] [address] [facility] [id number] [place] [address]- 5986 Feb, [facility] [address] [facility] [id number] [place] [address]- 2217 December, [facility] [address] [facility] [id number] [place] [address]- 2233 December, [facility] [address] [facility] [id number] [place] [address]- 6215 Nov, IMMUNIZATIONS No Known Immunizations SOCIAL HISTORY Never Assessed REASON FOR VISIT Requests return call PLAN OF CARE VITAL SIGNS MEDICATIONS Medication Instructions Dosage Frequency Start Date End Date Duration Status Omeprazole 20 mg Orally Once a day 1 capsule 24h Apr, 30 day(s ) Active RESULTS No Results PROCEDURES No Known procedures INSTRUCTIONS MEDICATIONS ADMINISTERED No Known Medications MEDICAL (GENERAL) HISTORY Type Description Date Medical History anxiety Medical History depression Surgical History section x2 Surgical History cholecystectomy Hospitalization History Surgery(s)/Childbirth(s) Hospitalization History anxiety 2011
--- OUTSIDE RECORDS SUMMARY | 2018-09-19 19:47 | XMS REPORT ---
Author Author ROBERT MORRIS Organization [facility] Address [address] [place] [address] Care Team Providers Care Process Safety Manager Name Role Phone ROBERT MORRIS Unavailable PROBLEMS Type Condition ICD9-CM Code [id number] Code Onset Dates Condition Status SNOMED Code Problem Attention deficit hyperactivity disorder (ADHD), predominantly inattentive type F90.0 Active 67946787 Problem Mood disorder F39 Active 80003819 Problem Anxiety state, unspecified F41.1 Active 814552118 Problem Anxiety F41.9 Active 32707626 Problem Depressive disorder, not elsewhere classified F32.9 Active 93848280 ALLERGIES No Information ENCOUNTERS Encounter Location Date Diagnosis [facility] [address] [address]- [address] May, [facility] [id number] [place] [address] 66545- 8951 Apr, [facility] [address] [address]- 0422 12 Apr, 2018 Mood disorder F39 ; Attention deficit hyperactivity disorder (ADHD), predominantly inattentive type F90.0 and Anxiety F41.9 [facility] [id number] [place] [address] 38568 -7849 Apr, Acute bilateral thoracic back pain M54.6 [facility] [id number] [place] [address] 67493- 2886 Mar, [facility] [address] 92068- 1118 Mar, [facility] [address] 74659- 1611 Mar, [facility] [address] 58404- 4043 Mar, Attention deficit hyperactivity disorder (ADHD), predominantly inattentive type F90.0 and Anxiety F41.9 [facility] [id number] [place] [address] 84799- 6147 Nov, Mood disorder F39 [facility] [id number] [place] [address] 92779- 3764 Oct, Mood disorder F39 [facility] [address] 700[address]- 1346 Sep, Mood disorder F39 [facility] [id number] [place] [address] 40730- 4280 Aug, Mood disorder F39 [facility] [id number] [place] [address] 53091- 7381 Jul, Mood disorder F39 [facility] [id number] [place] [address] 17437- 0730 Jun, Mood disorder F39 [facility] [id number] [place] [address] 59447- 8101 Apr, Other viral agents as the cause of diseases classified elsewhere B97.89 and Acute upper respiratory infection, unspecified J06.9 [facility] [address] [place] [address] 35789 -9535 Apr, Acute nasopharyngitis (common cold) J00 [facility] [id number] [place] [address] 72044- 7538 14 Apr, 2017 Mood disorder F39 [facility] [address] [place] [address] 11739- 2338 Apr, [facility] [id number] [place] [address] 20040 -9311 Mar, Acute gastroenteritis K52.9 [facility] [id number] [place] [address] 88973 -7011 Mar, Anxiety F41.9 [facility] [address], [place] [address]- 1383 Mar, Depressive disorder, not elsewhere classified F32.9 and Anxiety state, unspecified F41.1 [facility] [address] [place] [address] 591739- 3096 December, Dental examination Z01.20 [facility] [id number] [place] [address] 64636- 3886 Jun, Encounter for test Z32.00 [facility] [address] [place] [address] 99528 -6392 Feb, Abscess of left leg L02.416 and Wound of left breast, initial encounter S21.002A [facility] [place] [facility] [id number] [place] [address] [id number] Jan, Dental examination V72.2 [facility] [place] [facility] [id number] [place] [address] [id number] December, Dental examination V72.2 [facility] [place] [facility] [id number] [place] [address] [id number] December, Dental examination V72.2 [facility] [place] [facility] [id number] [place] [address] [id number] December, Dental examination V72.2 [facility] [address] [address]- 7876 Nov, [facility] [address] [place] [address] 61074- 6377 Nov, [facility] [address] [place] [address] [id number]- 9934 Oct, [facility] [id number] [place] [address] [id number]- 5336 Oct, [facility] [address], [place] [address]- 5575 Oct, [facility] [id number] [place] [address] 14203- 7132 18 Oct, 2014 [facility] [place] [facility] [address] [id number] [place] [address]- 8067 12 Oct, 2014 [facility] [place] [facility] [address] [id number] [place] [address]- 8188 11 Oct, 2014 [facility] [place] [facility] [address] [facility] [id number] [place] [address]- 8485 10 Oct, 2014 [facility] [place] [facility] [address] [id number] [place] [address]- 4291 10 Oct, 2014 [facility] [place] [facility] [address] [id number] [place] [address]- 5374 Jun, [facility] [place] [facility] [address] [id number] [place] [address]- 9114 Jun, [facility] [place] [facility] [address] [facility] [id number] [place] [address]- 7490 Jun, [facility] [place] [facility] [address] [id number] [place] [address]- 3513 Jun, [facility] [place] [facility] [address] [id number] [place] [address]- 4901 Apr, [facility] [place] [facility] [address] [facility] [id number] [place] [address]- 2528 Mar, [facility] [place] [facility] [address] [id number], [place] [address]- 3827 19 Apr, 2012 [facility] [place] [facility] [address] [id number], [place] [address]- 6595 13 Apr, 2012 [facility] [place] [facility] [address] [id number], [place] [address]- 7949 May, [facility] [place] [facility] [address] [facility] [id number], [place] [address]- 0672 May, [facility] [place] [facility] [address] [facility] [id number], [place] [address]- 3329 May, [facility] [place] [facility] [address] [facility] [id number] [place] [address]- 3528 Feb, [facility] [address] [facility] [id number], [place] [address]- 4631 December, [facility] [address] [facility] [id number][id number] 3421 December, [facility] [address] [facility] [id number], [place] [address]- 4443 Nov, IMMUNIZATIONS No Known Immunizations SOCIAL HISTORY [...]
--- OUTSIDE RECORDS SUMMARY | 2018-09-19 19:47 | XMS REPORT ---
Author Author ROBERT MORRIS Organization [facility] Address [address] [place] [address] Care Team Providers Care Behavioral School Counselors Name Role Phone ROBERT MORRIS Unavailable PROBLEMS Type Condition ICD9-CM Code QDU27-ME Code Onset Dates Condition Status SNOMED Code Problem Attention deficit hyperactivity disorder (ADHD), predominantly inattentive type F90.0 Active 67931067 Problem Mood disorder F39 Active 51440536 Problem Anxiety state, unspecified F41.1 Active 084674115 Problem Anxiety F41.9 Active 98188312 Problem Depressive disorder, not elsewhere classified F32.9 Active 77732416 ALLERGIES No Known Allergies ENCOUNTERS Encounter Location Date Diagnosis [facility] [address] [address] May, [facility] [id number] [place] [address] 92888- 9764 Apr, [facility] [address] [address]- 2768 12 Apr, 2018 Mood disorder F39 ; Attention deficit hyperactivity disorder (ADHD), predominantly inattentive type F90.0 and Anxiety F41.9 [facility] [id number] [place] [address] 41540 -6185 Apr, Acute bilateral thoracic back pain M54.6 [facility] [id number] [place] [address] 85643- 0279 Mar, [facility] [address] [address]- 0628 Mar, [facility] [address] [address]20- 5820 Mar, [facility] [address] 12215- 3409 Mar, Attention deficit hyperactivity disorder (ADHD), predominantly inattentive type F90.[address] [facility] [id number] [place] [address] 85661- 1340 Nov, Mood disorder F39 [facility] [id number] [place] [address] 24138- 6977 Oct, Mood disorder F39 [facility] [address] 30701- 9264 Sep, Mood disorder F39 [facility] [id number] [place] [address] 70703- 0274 Aug, Mood disorder F39 [facility] [id number] [place] [address] 88995- 6318 Jul, Mood disorder F39 [facility] [address] 79684- 7817 Jun, Mood disorder F39 [facility] [id number] [place] [address] 80993- 1574 Apr, Other viral agents as the cause of diseases classified elsewhere B97.89 and Acute upper respiratory infection, unspecified J06.9 [facility] [address] [place] [address] 63809 -3122 Apr, Acute nasopharyngitis (common cold) J00 [facility] [id number] [place] [address] 03094- 2509 14 Apr, [address] [facility] [id number] [place] [address] 47073- 4535 Apr, [facility] [id number] [place] [address] 91621 -9751 Mar, Acute gastroenteritis K52.9 [facility] [id number] [place] [address] 90049 -5161 Mar, Anxiety F41.9 [facility] [address] [address]- 8500 Mar, Depressive disorder, not elsewhere classified F32.9 and Anxiety state, unspecified F41.1 [facility] [address] [address]396 December, Dental examination Z01.20 [facility] [id number] [place] [address] 37697- 1602 15 Jun, 2016 Encounter for test Z32.00 [facility] [id number] [place] [address] 93990 -7452 Feb, Abscess of left leg L02.416 and Wound of left breast, initial encounter S21.002A [facility] [id number] [place] [address] [id number] Jan, Dental examination V72.2 [facility] [id number] [place] [address] [id number] December, Dental examination V72.2 [facility] [id number] [place] [address] [id number] December, Dental examination V72.2 [facility] [id number] [place] [address] [id number] December, Dental examination V72.2 [facility] [address], [place] [address]- 7246 Nov, [facility] [address] [address]- 8433 Nov, [facility] [id number] [place] [address] 35096- 6613 Oct, [facility] [address] [place] [address] [id number]- 6986 Oct, [facility] [address]005[address], [place] [address]- 8720 Oct, [facility] [id number] [place] [address] [place] [address]- 3248 18 Oct, 2014 [facility] [place] [facility] [address] [id number] [place] [address]- 9010 12 Oct, 2014 [facility] [place] [facility] [address] [id number] [place] [address]- 9581 11 Oct, 2014 [facility] [place] [facility] [address] [id number] [place] [address]- 5799 10 Oct, 2014 [facility] [place] [facility] [address] [id number] [place] [address]- 0023 10 Oct, 2014 [facility] [place] [facility] [address] [id number] [place] [address]- 3365 Jun, [facility] [place] [facility] [address] [id number] [place] [address]- 0553 Jun, [facility] [place] [facility] [address] [id number] [place] [address]- 2494 Jun, [facility] [place] [facility] [address] [id number] [place] [address]- 9491 Jun, [facility] [place] [facility] [address] [id number] [place] [address]- 8395 Apr, [facility] [place] [facility] [address] [id number] [place] [address]- 0563 Mar, [facility] [place] [facility] [address] [id number] [place] [address]- 7153 19 Apr, 2012 [facility] [place] [facility] [address] [id number], [place] [address]- 2068 13 Apr, 2012 [facility] [place] [facility] [address] [id number], [place] [address]- 1201 May, [facility] [place] [facility] [address] [id number] [place] [address]- 3795 May, [facility] [place] [facility] [address] [id number], [place] [address]- 5852 May, [facility] [place] [facility] [address] [facility] [id number] [place] [address]- 8379 Feb, [facility] [address] [facility] [id number] [address] December, [facility] [address] [facility] [id number] [address] December, [facility] [address] [facility] [id number], [place] [address] Nov, IMMUNIZATIONS No Known Immunizations SOCIAL HISTORY Never Assessed REASON FOR VISIT ADHD, PT reports since she has been weaning off of the Trintellex but has been having mood swings lately -Clifford DSOUZA PLAN OF CARE VITAL SIGNS Height 68 in 2018-05-05 Weight 226.3 lbs 2018-05-05 Temperature 98.2 degrees Fahrenheit 2018-05-05 Heart Rate 94 bpm 2018-05-05 Respiratory Rate 18 2018-05-05 Oximetry 98 % 2018-05-05 BMI 34.41 kg/m2 2018-05-05 Blood pressure systolic 118 mmHg 2018-05-05 Blood pressure diastolic 72 mmHg 2018-05-05 MEDICATIONS Medication Instructions Dosage Frequency Start Date End Date Duration Status Adderall 10 mg Orally Twice a day 1 tablet 12h Apr, Active Vitamin D (Cholecalciferol) 1000 UNIT Orally Once a day 1 capsule 24h Active Vitamin B Complex - Active Xanax 0.5 MG Orally Three times a day 1 tablet as needed 8h 28 days Active Trintellix 20 mg orally once a day 1 tablet 24h Mar, Active RESULTS No Results PROCEDURES No Known procedures INSTRUCTIONS MEDICATIONS ADMINISTERED No Known Medications MEDICAL (GENERAL) HISTORY Type Description Date Medical History anxiety Medical History depression Surgical History section x2 Surgical History cholecystectomy Hospitalization History Surgery(s)/Childbirth(s) Hospitalization History anxiety 2011
--- OUTSIDE RECORDS SUMMARY | 2018-09-19 19:47 | XMS REPORT ---
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 904990141 Problem Mood disorder F39 Active 92111928 Problem Anxiety F41.9 Active 65982458 Problem Chronic cholecystitis 575.11 Active 40271345 Problem Unspecified disorder of gallbladder 575.9 Active 64512192 Problem Depressive disorder, not elsewhere classified F32.9 Active 06795396 Problem Anxiety state, unspecified F41.1 Active 689807472 Problem Counseling on substance use and abuse V65.42 Active 469286369 Problem General counseling for prescription of oral contraceptives V25.01 Active 679073506845680 Problem Screening for malignant neoplasm of the cervix V76.2 Active 153874030 Problem Special screening examination, human papillomavirus [HPV] V73.81 Active 042643080 Problem Screening examination for venereal disease V74.5 Active 564602869 Problem examination or test, negative result V72.41 Active 274618291 ALLERGIES No Information ENCOUNTERS Encounter Location Date Diagnosis [facility] [address] [id number] [address] Mar, [facility] [address] [place] [address] 73347- 8599 Nov, Mood disorder F39 [facility] [address] [address] 14 Oct, 2017 Mood disorder F39 [facility] [id number] [place] [address] 95405- 4816 Sep, Mood disorder F39 [facility] [address], [place] [address] 8[address] Aug, Mood disorder F39 [facility] [id number] [place] [address] 39892- 9564 Jul, Mood disorder F39 [facility] [id number] [place] [address] 42875- 4507 Jun, Mood disorder F39 [facility] [id number] [place] [address] 17320- 2355 Apr, Other viral agents as the cause of diseases classified elsewhere B97.89 and Acute upper respiratory infection, unspecified J06.9 [facility] [id number] [place] [address] 89502 -0919 Apr, Acute nasopharyngitis (common cold) J00 [facility] [id number] [place] [address] 20515- 4425 14 Apr, 2017 Mood disorder F39 [facility] [id number] [place] [address] 94642- 1258 Apr, [facility] [id number] [place] [address] 90454 -6594 Mar, Acute gastroenteritis K52.9 [facility] IN [facility] [address] [place] [address] 42417 -0572 Mar, Anxiety F41.9 [facility] [id number] [place] [address] 77413- 9955 Mar, Depressive disorder, not elsewhere classified F32.9 and Anxiety state, unspecified F41.1 [place] [id number] [place] [address] 46063- 8114 December, Dental examination Z01.20 [facility] [id number] [place] [address] 65745- 0592 15 Jun, 2016 Encounter for test Z32.00 [facility] [address], [place] [address] Feb, Abscess of left leg L02.416 and Wound of left breast, initial encounter S21.002A [facility] [address] [address] Jan, Dental examination V72.2 [facility] [address] [id number] [address] December, Dental examination V72.2 [facility] [address] [address] December, Dental examination V72.2 [facility] [id number] [place] [address] [id number] December, Dental examination V72.2 [facility] [address], [place] [address]- 3796 Nov, [facility] [address], [place] [address] 8166 Nov, [facility] [address], [place] [address]- 2412 Oct, [facility] [address] 7056 Oct, [facility] [address], [place] [address]- 3696 Oct, [facility] [address] 5846 18 Oct, 2014 [facility] [address] [facility] [id number], [place] [address]- 6791 12 Oct, 2014 [facility] [address] [facility] [id number], [place] [address]- 8326 11 Oct, 2014 [facility] [address] [id number] [address]- 4209 10 Oct, 2014 [facility] [address] [id number] [address] 1495 Oct, [facility] [address] [id number] [place] [address] 33[address] Jun, [facility] [address] [facility] [id number], [place] [address]- 8669 Jun, [facility] [address] [facility] [id number] [place] [address]- 9281 Jun, [facility] [address] [id number] [place] [address] Jun, [facility] [address] [id number] [place] [address]- 9814 Apr, [facility] [address] [facility] [id number] [place] [address]- 5197 Mar, [facility] [address], [place] [address]- 9630 Apr, [facility] [address] [facility] [id number], [place] [address]- 6398 Apr, [facility] [address] [id number] 1153 May, [facility] [address] [facility] [id number], [place] [address]- 3872 May, [facility] [address] 59[address] May, [facility] [address] [facility] [id number], [place] [address]- 9533 Feb, [facility] [address] [facility] [id number], [place] [address]- 3489 December, [facility] [address] [facility] [id number], [place] [address]- 2617 December, [facility] [address] [facility] [id number], [place] [address]- 2825 13 Apr, 2010 IMMUNIZATIONS No Known Immunizations SOCIAL HISTORY Never [...]
--- OUTSIDE RECORDS SUMMARY | 2018-09-19 19:47 | XMS REPORT ---
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 710159549 Problem Mood disorder F39 Active 02475422 Problem Anxiety F41.9 Active 22650250 Problem Chronic cholecystitis 575.11 Active 63203971 Problem Unspecified disorder of gallbladder 575.9 Active 88272694 Problem Depressive disorder, not elsewhere classified F32.9 Active 75279457 Problem Anxiety state, unspecified F41.1 Active 126278653 Problem Counseling on substance use and abuse V65.42 Active 733904701 Problem General counseling for prescription of oral contraceptives V25.01 Active 545653646339803 Problem Screening for malignant neoplasm of the cervix V76.2 Active 499488514 Problem Special screening examination, human papillomavirus [HPV] V73.81 Active 238028353 Problem Screening examination for venereal disease V74.5 Active 693023869 Problem examination or test, negative result V72.41 Active 817542127 ALLERGIES No Known Allergies ENCOUNTERS Encounter Location Date Diagnosis [facility] [address] [id number], [place] [address] Nov, [facility] [address] [place] [address] 36671- 5733 Nov, Mood disorder F39 [facility] [address], [place] [address]- 9365 Oct, Mood disorder F39 [facility] [address] [place] [address] 79576- 5327 13 Sep, 2017 Mood disorder F39 [facility] [address], [place] [address]- 2458 Aug, Mood disorder F39 [facility] [id number] [place] [address] 10580- 6167 Jul, Mood disorder F39 [facility] [id number] [place] [address] 25164- 4538 Jun, Mood disorder F39 [facility] [id number] [place] [address] 87433- 8727 Apr, Other viral agents as the cause of diseases classified elsewhere B97.89 and Acute upper respiratory infection, unspecified J06.9 [facility] [id number] [place] [address] 95451 -3996 Apr, Acute nasopharyngitis (common cold) J00 [facility] [id number] [place] [address] 89131- 0581 14 Apr, 2017 Mood disorder F39 [facility] [id number] [place] [address] 85515- 2879 Apr, [facility] [id number] [place] [address] 28640 -0241 Mar, Acute gastroenteritis K52.9 [facility] [id number] [place] [address] 89846- 2779 Mar, Depressive disorder, not elsewhere classified F32.9 and Anxiety state, unspecified F41.1 [facility] [address] [place] [address] 56718 -2049 Mar, Anxiety F41.9 [facility] [id number] [place] [address] 81467- 7155 December, Dental examination Z01.20 [facility] [id number] [place] [address] 75010- 6789 15 Jun, 2016 Encounter for test Z32.00 [facility] [id number], [place] [address] Feb, Abscess of left leg L02.416 and Wound of left breast, initial encounter S21.002A [facility] [address] [id number] [address] Jan, Dental examination V72.2 [facility] [address] [address] December, Dental examination V72.2 [facility] [address] [address] December, Dental examination V72.2 [facility] [id number] [place] [address] [id number] December, Dental examination V72.2 [facility] [address], [place] [address]- 6146 Nov, [facility] [address] 4838 Nov, [facility] [address] 5473 Oct, [facility] [address] 2783 Oct, [facility] [address] 7619 Oct, [facility] [address] [facility] [id number]- 5326 18 Oct, 2014 [facility] [address] [facility] [id number]- 9230 12 Oct, 2014 [facility] [address] [facility] [id number], [place] [address]- 5996 11 Oct, 2014 [facility] [address] [facility] [id number]- 7670 10 Oct, 2014 [facility] [id number] [place] [address], [place] [address]- 8376 Oct, [facility] [address] [id number] [place] [address]- 8317 Jun, [facility] [address] [facility] [id number] [place] [address]- 1288 Jun, [facility] [address] [facility] [id number] [place] [address]- 7680 Jun, [facility] [address] [id number] [place] [address]- 9971 Jun, [facility] [address] [facility] [id number] [place] [address]- 4187 Apr, [facility] [address] [facility] [id number] [place] [address]- 9265 Mar, [facility] [address] [facility] [id number] [place] [address]- 7311 Apr, [facility] [address] [facility] [id number] [place] [address]- 3879 Apr, [facility] [address] [id number]- 3540 May, [facility] [address] [facility] [id number], [place] [address]- 9939 May, [facility] [id number], [place] [address]- 3273 May, [facility] [address] [facility] [id number], [place] [address]- 9166 Feb, [facility] [address] [facility] [id number], [place] [address]- 2973 December, [facility] [address] [facility] [id number], [place] [address]- 8844 December, [facility] [address] [facility] [id number], [place] [address]- 8445 Nov, IMMUNIZATIONS No Known Immunizations SOCIAL HISTORY Never Assessed REASON FOR VISIT est care, anxiety--Christiano Mendiola MA PLAN OF CARE VITAL SIGNS Height 68 in 2017-05-07 Weight 212.7 lbs 2017-05-07 Temperature 98.2 degrees Fahrenheit 2017-05-07 Heart Rate 72 bpm 2017-05-07 Respiratory Rate 20 2017-05-07 BMI 32.34 kg/m2 2017-05-07 Blood pressure systolic 126 mmHg 2017-05-07 Blood pressure diastolic 88 mmHg 2017-05-07 MEDICATIONS Medication Instructions Dosage Frequency Start Date End Date Duration Status Trintellix 20 mg orally once a day 1 tablet 24h Mar, Active Xanax 0.5 MG Orally Three times a day 1 tablet 8h Active RESULTS No Results PROCEDURES Procedure Date Ordered Result Body [facility] May 07, 2017 VENIPUNCT, ROUTINE* May 07, 2017 INSTRUCTIONS MEDICATIONS ADMINISTERED No Known Medications MEDICAL (GENERAL) HISTORY Type Description Date Medical History anxiety Medical History depression Surgical History section x2 Surgical History cholecystectomy Hospitalization History Surgery(s)/Childbirth(s) Hospitalization History anxiety 2011
--- OUTSIDE RECORDS SUMMARY | 2018-09-19 19:47 | XMS REPORT ---
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 903631831 Problem Mood disorder F39 Active 20509839 Problem Anxiety F41.9 Active 81132529 Problem Chronic cholecystitis 575.11 Active 06782806 Problem Unspecified disorder of gallbladder 575.9 Active 90687104 Problem Depressive disorder, not elsewhere classified F32.9 Active 98635409 Problem Anxiety state, unspecified F41.1 Active 710602366 Problem Counseling on substance use and abuse V65.42 Active 412914535 Problem General counseling for prescription of oral contraceptives V25.01 Active 295960630925500 Problem Screening for malignant neoplasm of the cervix V76.2 Active 351152975 Problem Special screening examination, human papillomavirus [HPV] V73.81 Active 183573932 Problem Screening examination for venereal disease V74.5 Active 195540740 Problem examination or test, negative result V72.41 Active 871980729 ALLERGIES No Information ENCOUNTERS Encounter Location Date Diagnosis [facility] [address] [id number], [place] [address]- 1218 Nov, Mood disorder F39 [facility] [address], [place] [address]- 2921 Oct, Mood disorder F39 [facility] [address], [place] [address]- 0451 Sep, Mood disorder F39 [facility] [address] [place] [address] 33487- 5982 Aug, Mood disorder F39 [facility] [id number] [place] [address] 11990- 9806 Jul, Mood disorder F39 [facility] [id number] [place] [address] 52125- 8235 Jun, Mood disorder F39 [facility] [id number] [place] [address] 48697- 8656 Apr, Other viral agents as the cause of diseases classified elsewhere B97.89 and Acute upper respiratory infection, unspecified J06.9 [facility] [id number] [place] [address] 04317 -0405 Apr, Acute nasopharyngitis (common cold) J00 [place] [id number] [place] [address] 85824- 8755 14 Apr, 2017 Mood disorder F39 [place] [id number] [place] [address] 51622- 9946 Apr, [facility] [id number] [place] [address] 20055 -7664 Mar, Acute gastroenteritis K52.9 [facility] [id number] [place] [address] 63136 -2417 Mar, Anxiety F41.9 [place] [id number] [place] [address] 27521- 4119 Mar, Depressive disorder, not elsewhere classified F32.9 and Anxiety state, unspecified F41.1 [place] [id number] [place] [address] 53508- 9606 December, Dental examination Z01.20 [place] [id number] [place] [address] 92990- 3613 15 Jun, 2016 Encounter for test Z32.00 [facility] [id number] [place] [address] 65053 -1617 Feb, Abscess of left leg L02.416 and Wound of left breast, initial encounter S21.002A [facility] [address] [id number] [address] Jan, Dental examination V72.2 [facility] [address] [id number] [address] December, Dental examination V72.2 [facility] [address] [id number][place] [address] December, Dental examination V72.2 [facility] [address] [id number] [address] December, Dental examination V72.2 [facility] [address] [id number] [address]- 2546 Nov, [facility] [address] [id number] [address]- 2916 Nov, [facility] [address] [id number] [address]- 3246 Oct, [facility] [address] [id number] [address]- 5666 Oct, [facility] [address] [id number], [place] [address]- 3586 Oct, [facility] [address] [id number] [address]- 1896 18 Oct, 2014 [facility] [address] [id number] [address]- 6076 12 Oct, 2014 [facility] [address] [id number] [address] 2546 11 Oct, 2014 [facility] [address] [id number] [address] 2546 Oct, [facility] [address] [id number] [address]- 6076 Oct, [facility] [address] [id number] [address]- 4521 Jun, [facility] [address], [place] [address]- 1574 Jun, [facility] [address]- 5467 Jun, [facility] [address], [place] [address]- 5322 Jun, [facility] [address]- 2376 Apr, [facility] [address] [place] [address] 873466- 1296 Mar, [facility] [address], [place] [address]- 0035 Apr, [facility] [address] [place] [address] 10627- 4565 Apr, [facility] [address], [place] [address]- 2614 May, [facility] [address], [place] [address]- 9317 May, [facility] [address], [place] [address]- 7486 May, [facility] [address], [place] [address]- 7357 Feb, [facility] [address], [place] [address]- 4479 December, [facility] [address]- 9721 December, [facility] [address] 7230 Nov, IMMUNIZATIONS No Known Immunizations SOCIAL HISTORY [...]
--- OUTSIDE RECORDS SUMMARY | 2018-09-19 19:47 | XMS REPORT ---
Author Author ROBERT MORRIS Organization [facility] Address [address] [place] [address] Care Team Providers Care National Sales Manager Name Role Phone ROBERT MORRIS Unavailable PROBLEMS Type Condition ICD9-CM Code IWT61-MN Code Onset Dates Condition Status SNOMED Code Problem Attention deficit hyperactivity disorder (ADHD), predominantly inattentive type F90.0 Active 79634372 Problem Mood disorder F39 Active 78761877 Problem Anxiety state, unspecified F41.1 Active 784987491 Problem Anxiety F41.9 Active 83214985 Problem Depressive disorder, not elsewhere classified F32.9 Active 08090371 ALLERGIES No Information ENCOUNTERS Encounter Location Date Diagnosis [facility] [address] [address] May, [facility] [id number] [place] [address] 83563- 5752 Apr, [facility] [address] [address]- [address] 12 Apr, 2018 Mood disorder F39 ; Attention deficit hyperactivity disorder (ADHD), predominantly inattentive type F90.0 and Anxiety F41.9 [facility] [id number] [place] [address]559 -1710 Apr, Acute bilateral thoracic back pain M54.6 [facility] [id number] [place] [address] 72028- 1062 Mar, [facility] [address] [address] Mar, [facility] [address] [address]- 64[address] Mar, [facility] [address] [address]- 7468 Mar, Attention deficit hyperactivity disorder (ADHD), predominantly inattentive type F90.0 and Anxiety F41.9 [facility] [id number] [place] [address] 93496- 6098 Nov, Mood disorder F39 [facility] [id number] [place] [address] 10609- 8816 Oct, Mood disorder F39 [facility] [address] [address]- 2752 Sep, Mood disorder F39 [facility] [id number] [place] [address] 71719- 7220 Aug, Mood disorder F39 [facility] [id number] [place] [address] 83011- 8278 Jul, Mood disorder F39 [facility] [id number] [place] [address] 22884- 1812 Jun, Mood disorder F39 [facility] [id number] [place] [address] 44561- 5738 Apr, Other viral agents as the cause of diseases classified elsewhere B97.89 and Acute upper respiratory infection, unspecified J06.9 [facility] [address] [place] [address] 25026 -6635 Apr, Acute nasopharyngitis (common cold) J00 [facility] [id number] [place] [address] 01468- 0123 14 Apr, 2017 Mood disorder F39 [facility] [address] [place] [address] 88205- 7824 Apr, [facility] [id number] [place] [address] 08154 -1424 Mar, Acute gastroenteritis K52.9 [facility] [id number] [place] [address] 27622 -2129 Mar, Anxiety F41.9 [facility] [address] [address] Mar, Depressive disorder, not elsewhere classified F32.9 and Anxiety state, unspecified F41.1 [facility] [address] [place] [address] 934110- 0496 December, Dental examination Z01.20 [facility] [address] [place] [address] 98581- 9966 Jun, Encounter for test Z32.[address] [facility] [address] [place] [address] 68667 -8515 Feb, Abscess of left leg L02.416 and Wound of left breast, initial encounter S21.002A [facility] [id number] [place] [address] [id number] Jan, Dental examination V72.2 [facility] [id number] [place] [address] [id number] December, Dental examination V72.2 [facility] [id number] [place] [address] [id number] December, Dental examination V72.2 [facility] [id number] [place] [address] [id number] December, Dental examination V72.2 [facility] [address] [address]- 5[address] Nov, [facility] [address] [place] [address] 93794- 6933 Nov, [facility] [address] [place] [address] [id number] 1492 Oct, [facility] [id number] [place] [address] [id number]- 4346 Oct, [facility] [address] [address]- 7812 Oct, [facility] [id number] [place] [address] 17253- 7237 18 Oct, 2014 [facility] [place] [facility] [address] [id number] [place] [address]- 2057 12 Oct, 2014 [facility] [place] [facility] [address] [id number] [place] [address]- 6358 11 Oct, 2014 [facility] [place] [facility] [address] [facility] [id number] [place] [address]- 1836 10 Oct, 2014 [facility] [place] [facility] [address] [id number] [place] [address]- 4852 10 Oct, 2014 [facility] [place] [facility] [address] [id number] [place] [address]- 9264 Jun, [facility] [place] [facility] [address] [id number] [place] [address]- 9550 Jun, [facility] [place] [facility] [address] [facility] [id number] [place] [address]- 8508 Jun, [facility] [place] [facility] [address] [id number] [place] [address]- 0163 Jun, [facility] [place] [facility] [address] [id number] [address]- 7030 Apr, [facility] [place] [facility] [address] [facility] [id number] [place] [address]- 8450 Mar, [facility] [place] [facility] [address] [id number] [address]- 2756 19 Apr, 2012 [facility] [place] [facility] [address] [id number], [place] [address]- 4293 13 Apr, 2012 [facility] [place] [facility] [address] [id number], [place] [address]- 6777 May, [facility] [place] [facility] [address] [facility] [id number] [address]- 7452 May, [facility] [place] [facility] [address] [facility] [id number] [address]- 7320 May, [facility] [place] [facility] [address] [facility] [id number] [place] [address] [address] Feb, [facility] [address] [facility] [id number], [place] [address]- 5491 December, [facility] [address] [facility] [id number], [place] [address]- 8005 December, [facility] [address] [facility] [id number], [place] [address]- 7538 Nov, IMMUNIZATIONS No Known Immunizations SOCIAL HISTORY Never Assessed REASON FOR VISIT PA for [facility] PLAN OF CARE VITAL SIGNS MEDICATIONS Unknown Medications RESULTS No Results PROCEDURES No Known procedures INSTRUCTIONS MEDICATIONS ADMINISTERED No Known Medications MEDICAL (GENERAL) HISTORY Type Description Date Medical History anxiety Medical History depression Surgical History section x2 Surgical History cholecystectomy Hospitalization History Surgery(s)/Childbirth(s) Hospitalization History anxiety 2012
--- OUTSIDE RECORDS SUMMARY | 2018-09-19 19:47 | XMS REPORT ---
Author Author ROBERT MORRIS Organization [facility] Address [address] [place] [address] Care Team Providers Care Brass Reclaimer Name Role Phone ROBERT MORRIS Unavailable PROBLEMS Type Condition ICD9-CM Code CHK77-IE Code Onset Dates Condition Status SNOMED Code Problem Attention deficit hyperactivity disorder (ADHD), predominantly inattentive type F90.0 Active 33640925 Problem Mood disorder F39 Active 57090905 Problem Anxiety state, unspecified F41.1 Active 562991396 Problem Anxiety F41.9 Active 34071500 Problem Depressive disorder, not elsewhere classified F32.9 Active 85540088 ALLERGIES No Known Allergies ENCOUNTERS Encounter Location Date Diagnosis [facility] [address] [address]- [address] May, [facility] [id number] [place] [address] 86241- 6654 Apr, [facility] [address] 8[address]- 1814 12 Apr, 2018 Mood disorder F39 ; Attention deficit hyperactivity disorder (ADHD), predominantly inattentive type F90.0 and Anxiety F41.9 [facility] [id number] [place] [address] 85912 -4573 Apr, Acute bilateral thoracic back pain M54.6 [facility] [id number] [place] [address] 15080- 1886 Mar, [facility] [address] 71800- 2409 Mar, [facility] [address] 43507- 8889 Mar, [facility] [address] 05075- 0668 Mar, Attention deficit hyperactivity disorder (ADHD), predominantly inattentive type F90.0 and Anxiety F41.9 [facility] [id number] [place] [address] 42066- 7020 Nov, Mood disorder F39 [facility] [id number] [place] [address] 45891- 7993 Oct, Mood disorder F39 [facility] [address] 30608- 0076 Sep, Mood disorder F39 [facility] [id number] [place] [address] 70630- 7472 Aug, Mood disorder F39 [facility] [id number] [place] [address] 81672- 9399 Jul, Mood disorder F39 [facility] [address] 21321- 8415 Jun, Mood disorder F39 [facility] [id number] [place] [address] 50562- 7713 Apr, Other viral agents as the cause of diseases classified elsewhere B97.89 and Acute upper respiratory infection, unspecified J06.9 [facility] [address] [place] [address] 26735 -9861 Apr, Acute nasopharyngitis (common cold) J00 [facility] [id number] [place] [address] 10528- 5070 14 Apr, 2017 Mood disorder F39 [facility] [id number] [place] [address] 94616- 7479 Apr, [facility] [id number] [place] [address] 53874 -7930 Mar, Acute gastroenteritis K52.9 [facility] [id number] [place] [address] 26707 -7028 Mar, Anxiety F41.9 [facility] [address] [address]- 7010 Mar, Depressive disorder, not elsewhere classified F32.9 and Anxiety state, unspecified F41.1 [facility] [address] [address] 8396 December, Dental examination Z01.20 [facility] [id number] [place] [address] 85978- 6836 15 Jun, 2016 Encounter for test Z32.00 [facility] [id number] [place] [address] 27448 -4069 Feb, Abscess of left leg L02.416 and Wound of left breast, initial encounter S21.002A [facility] [id number] [place] [address] [id number] Jan, Dental examination V72.2 [facility] [id number] [place] [address] [id number] December, Dental examination V72.2 [facility] [id number] [place] [address] [id number] December, Dental examination V72.2 [facility] [id number] [place] [address] [phone] December, Dental examination V72.2 [facility] [address]65[address] [address]- 7028 Nov, [facility] [address] [address]- 9274 Nov, [facility] [id number] [place] [address] 15195- 2779 Oct, [facility] [address] [place] [address] [id number]- 9596 Oct, [facility] [address]65[address] [address]- 7230 Oct, [facility] [id number] [place] [address] [place] [address]- 8062 18 Oct, 2014 [facility] [place] [facility] [address] [id number] [place] [address]- 5444 12 Oct, 2014 [facility] [place] [facility] [address] [id number] [place] [address]- 5412 11 Oct, 2014 [facility] [place] [facility] [address] [id number] [place] [address]- 0154 10 Oct, 2014 [facility] [place] [facility] [address] [id number] [place] [address]- 8937 10 Oct, 2014 [facility] [place] [facility] [address] [id number] [place] [address]- 7469 Jun, [facility] [place] [facility] [address] [id number] [place] [address]- 1339 Jun, [facility] [place] [facility] [address] [id number] [place] [address]- 5906 Jun, [facility] [place] [facility] [address] [id number] [place] [address]- 2677 Jun, [facility] [place] [facility] [address] [id number] [place] [address]- 7990 Apr, [facility] [place] [facility] [address] [id number] [place] [address]- 3313 Mar, [facility] [place] [facility] [address] [id number] [place] [address]- 8781 19 Apr, 2012 [facility] [place] [facility] [address] [id number] [address]- 6633 13 Apr, 2012 [facility] [place] [facility] [address] [id number] [place] [address]- 2236 May, [facility] [place] [facility] [address] [id number] [place] [address]- 4188 May, [facility] [place] [facility] [address] [id number] [address]- 5986 May, [facility] [place] [facility] [address] [facility] [id number] [place] [address]- 2306 Feb, [facility] [address] [facility] [id number] [place] [address]- 6416 December, [facility] [address] [facility] [id number] [place] [address]- 3626 December, [facility] [address] [facility] [id number] [address]- 4789 Nov, IMMUNIZATIONS No Known Immunizations SOCIAL HISTORY Never Assessed REASON FOR VISIT Anxiety/ Depression. AVERY Tom PLAN OF CARE Activity Details Follow Up 4 Weeks Reason:adhd VITAL SIGNS Height 68 in 2018-04-07 Weight 226 lbs 2018-04-07 Temperature 98 degrees Fahrenheit 2018-04-07 Heart Rate 83 bpm 2018-04-07 Respiratory Rate 18 2018-04-07 BMI 34.36 kg/m2 2018-04-07 Blood pressure systolic 124 mmHg 2018-04-07 Blood pressure diastolic 72 mmHg 2018-04-07 MEDICATIONS Medication Instructions Dosage Frequency Start Date End Date Duration Status Vitamin D (Cholecalciferol) 1000 UNIT Orally Once a day 1 capsule 24h Active Xanax 0.5 MG Orally Three times a day 1 tablet as needed 8h 28 days Active Vitamin B Complex - Active Trintellix 10 mg orally once a day x 7 days, then 1/2 tab daily x 2 wks. 1 tablet Mar, Active Adderall 10 mg Orally Twice a day 1 tablet 12h Mar, Active RESULTS No Results PROCEDURES No Known procedures INSTRUCTIONS MEDICATIONS ADMINISTERED No Known Medications MEDICAL (GENERAL) HISTORY Type Description Date Medical History anxiety Medical History depression Surgical History section x2 Surgical History cholecystectomy Hospitalization History Surgery(s)/Childbirth(s) Hospitalization History anxiety 2011
--- OUTSIDE RECORDS SUMMARY | 2018-09-19 19:48 | XMS REPORT ---
Author Author ROBERT MORRIS Organization 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 517639493 Problem Mood disorder F39 Active 54623577 Problem Anxiety F41.9 Active 82767605 Problem Chronic cholecystitis 575.11 Active 22201197 Problem Unspecified disorder of gallbladder 575.9 Active 78343802 Problem Depressive disorder, not elsewhere classified F32.9 Active 31731096 Problem Anxiety state, unspecified F41.1 Active 772249095 Problem Counseling on substance use and abuse V65.42 Active 639469454 Problem General counseling for prescription of oral contraceptives V25.01 Active 447504138868843 Problem Screening for malignant neoplasm of the cervix V76.2 Active 466167157 Problem Special screening examination, human papillomavirus [HPV] V73.81 Active 755836540 Problem Screening examination for venereal disease V74.5 Active 142716048 Problem examination or test, negative result V72.41 Active 951555492 ALLERGIES No Known Allergies ENCOUNTERS Encounter Location Date Diagnosis [facility] [address] [id number] [address] Nov, [facility] [address] [place] [address] 45960- 6056 Oct, Mood disorder F39 [facility] [address] [address]- 5773 Sep, Mood disorder F39 [facility] [address] [place] [address] 23240- 6060 Aug, Mood disorder F39 [facility] [address] [place] [address] 96967- 1405 Jul, Mood disorder F39 [facility] [id number] [place] [address] 19699- 2830 Jun, Mood disorder F39 [facility] [id number] [place] [address] 69044- 0516 Apr, Other viral agents as the cause of diseases classified elsewhere B97.89 and Acute upper respiratory infection, unspecified J06.9 [facility] [id number] [place] [address] 44092 -1890 Apr, Acute nasopharyngitis (common cold) J00 [place] [id number] [place] [address] 49075- 1066 14 Apr, 2017 Mood disorder F39 [place] [id number] [place] [address] 74044- 3895 Apr, [facility] [id number] [place] [address] 27530 -1601 Mar, Acute gastroenteritis K52.9 [facility] [id number] [place] [address] 62352 -6417 Mar, Anxiety F41.9 [place] [id number] [place] [address] 38574- 3456 Mar, Depressive disorder, not elsewhere classified F32.9 and Anxiety state, unspecified F41.1 [place] [id number] [place] [address] 33191- 7613 December, Dental examination Z01.20 [place] [address] [address]- 6019 15 Jun, 2016 Encounter for test Z32.00 [facility] [id number] [place] [address] 44382 -0978 28 Jose R, 2016 Abscess of left leg L02.416 and Wound of left breast, initial encounter S21.002A [facility] [address] [id number] [address] Jan, Dental examination V72.2 [facility] [address] [id number] [place] [id number] December, Dental examination V72.2 [facility] [address] [id number] [place] [id number] December, Dental examination V72.2 [facility] [address] [id number] [id number] December, Dental examination V72.2 [facility] [address] [id number] [address]- 0[address] Nov, [facility] [address] [id number] [place] [address]- 7336 Nov, [facility] [address] [id number] [place] [address]- 6276 Oct, [facility] [address] [id number] [address] Oct, [facility] [address] [id number] [place] [address]- 8796 Oct, [facility] [address] [id number] [place] 7706 18 Oct, 2014 [facility] [address] [id number] [place] [address]- 2826 12 Oct, 2014 [facility] [address] [id number] [place]- 9758 11 Oct, 2014 [facility] [address] [id number] [place]- 5836 10 Oct, 2014 [facility] [address] [id number] [address]- 1616 Oct, [facility] [address] [id number] [place] [address]- 5422 Jun, [facility] [address]005[address] [address]- 0131 Jun, [facility] [address]00565100[place] [address]- 0078 Jun, [facility] [address]005[address] [address]- 4259 Jun, [facility] [id number] [address] Apr, [facility] [id number] [address] Mar, [facility] [id number] [address] Apr, [facility] [id number] [address] Apr, [facility] [id number] [address] May, [facility] [id number] [address] May, [facility] [id number] [address] May, [facility] [id number] [address] Feb, [facility] [id number] [address] December, [facility] [id number] [address] December, [facility] [id number] [address] Nov, IMMUNIZATIONS No Known Immunizations SOCIAL HISTORY Never Assessed REASON FOR VISIT PMH obtained. TGbishnu VARELA PLAN OF CARE VITAL SIGNS MEDICATIONS Medication Instructions Dosage Frequency Start Date End Date Duration Status Xanax 0.5 MG Orally Three times a day 1 tablet 8h Active Trintellix 20 mg orally once a day 1 tablet 24h Mar, Active RESULTS No Results PROCEDURES No Known procedures INSTRUCTIONS MEDICATIONS ADMINISTERED No Known Medications MEDICAL (GENERAL) HISTORY Type Description Date Medical History anxiety Medical History depression Surgical History section x2 Surgical History cholecystectomy Hospitalization History Surgery(s)/Childbirth(s) Hospitalization History anxiety 2012
--- OUTSIDE RECORDS SUMMARY | 2018-09-19 19:48 | XMS REPORT ---
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 889796384 Problem Mood disorder F39 Active 52955730 Problem Anxiety F41.9 Active 49661727 Problem Chronic cholecystitis 575.11 Active 78451774 Problem Unspecified disorder of gallbladder 575.9 Active 48113730 Problem Depressive disorder, not elsewhere classified F32.9 Active 65258221 Problem Anxiety state, unspecified F41.1 Active 972274616 Problem Counseling on substance use and abuse V65.42 Active 351459831 Problem General counseling for prescription of oral contraceptives V25.01 Active 775340497102341 Problem Screening for malignant neoplasm of the cervix V76.2 Active 631664558 Problem Special screening examination, human papillomavirus [HPV] V73.81 Active 890667378 Problem Screening examination for venereal disease V74.5 Active 136504526 Problem examination or test, negative result V72.41 Active [id number] ALLERGIES No Information ENCOUNTERS Encounter Location Date Diagnosis [facility] [id number] [address] Nov, Mood disorder F39 [facility] [address], [place] [address] Oct, Mood disorder F39 [facility] [address] [address] 13 Sep, 2017 Mood disorder F39 [facility] [address] [place] [address]66 Aug, Mood disorder F39 [facility] [id number] [place] [address]- 2124 Jul, Mood disorder F39 [facility] [id number] [place] [address]- 8099 Jun, Mood disorder F39 [facility] [id number] [place] [address]654- 3586 Apr, Other viral agents as the cause of diseases classified elsewhere B97.89 and Acute upper respiratory infection, unspecified J06.9 [facility] [id number] [place] [address]8349 Apr, Acute nasopharyngitis (common cold) [address] [id number] [place] [address]278- 6[address] 14 Apr, 2017 Mood disorder F39 [place] [id number] [place] [address]300- 3200 Apr, [facility] [id number] [place] [address]12 -0738 Mar, Acute gastroenteritis K52.9 [facility] [place] [id number] [place] [address] -5056 Mar, Anxiety F41.9 [place] [id number] [place] [address]15- 4840 Mar, Depressive disorder, not elsewhere classified F32.9 and Anxiety state, unspecified F41.1 [place] [id number] [place] [address]3310- 1520 December, Dental examination Z01.20 [place] [id number] [place] [address] 7[address]14- 1552 15 Jun, 2016 Encounter for test Z32.00 [facility] [id number] [place] [address]687 -1791 Feb, Abscess of left leg L02.416 and Wound of left breast, initial encounter S21.002A [facility] [address] [id number] [address] Jan, Dental examination V72.2 [facility] [address] [id number] [address] December, Dental examination V72.2 [facility] [address] [id number] [address] December, Dental examination V72.2 [facility] [address] [id number] [address] December, Dental examination V72.2 [facility] [address] [id number], [place] [address] Nov, [facility] [address] [id number], [place] [address] Nov, [facility] [address] [id number], [place] [address] Oct, [facility] [address] [id number], [place] [address] Oct, [facility] [address] [id number], [place] [address] Oct, [facility] [address] [id number], [place] [address] 18 Oct, 2014 [facility] [address] [id number], [place] [address] 12 Oct, 2014 [facility] [address] [id number], [place] [address] 2546 11 Oct, 2014 [facility] [address] [id number], [place] [address] 2546 Oct, [facility] [address] [id number], [place] [address] 39[address] Oct, [facility] [address] [id number], [place] [address] Jun, [facility] [address], [place] [address] Jun, [facility] [address] [address] Jun, [facility] [address], [place] [address] Jun, [facility] [address] [address] Apr, [facility] [address] [place] [address]83- 7509 Mar, [facility] [address] [address] 7[address] Apr, [facility] [address] [place] [address] 49914- 2314 Apr, [facility] [address] [address] May, [facility] [address], [place] [address] May, [facility] [address], [place] [address] May, [facility] [address], [place] [address] 88[address] Feb, [facility] [address], [place] [address] December, [facility] [address] [address] December, [facility] [address] [address] Nov, IMMUNIZATIONS No Known Immunizations SOCIAL HISTORY [...]
--- OUTSIDE RECORDS SUMMARY | 2018-09-19 19:48 | XMS REPORT ---
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 Active 186643230 Problem Mood disorder F39 Active 38487954 Problem Anxiety F41.9 Active 58874680 Problem Chronic cholecystitis 575.11 Active 82550006 Problem Unspecified disorder of gallbladder 575.9 Active 63934754 Problem Depressive disorder, not elsewhere classified F32.9 Active 34765916 Problem Anxiety state, unspecified F41.1 Active 304170079 Problem Counseling on substance use and abuse V65.42 Active 752405855 Problem General counseling for prescription of oral contraceptives V25.01 Active 840123708786714 Problem Screening for malignant neoplasm of the cervix V76.2 Active 817444758 Problem Special screening examination, human papillomavirus [HPV] V73.81 Active 446595439 Problem Screening examination for venereal disease V74.5 Active 967270609 Problem examination or test, negative result V72.41 Active 906984002 ALLERGIES No Information ENCOUNTERS Encounter Location Date Diagnosis [facility] [id number], [place] [address] Nov, Mood disorder F39 [facility] [address], [place] [address] Oct, Mood disorder F39 [facility] [address], [place] [address] 13 Sep, 2017 Mood disorder F39 [facility] [address] [place] [address] 85645- 8890 Aug, Mood disorder F39 [facility] [id number] [place] [address] 14495- 5632 Jul, Mood disorder F39 [facility] [id number] [place] [address]4066- 2059 Jun, Mood disorder F39 [facility] [id number] [place] [address] 14939- 1725 Apr, Other viral agents as the cause of diseases classified elsewhere B97.89 and Acute upper respiratory infection, unspecified J06.9 [facility] [id number] [place] [address]17 -9808 Apr, Acute nasopharyngitis (common cold) [id number] [place] [address] 10358- 6482 14 Apr, 2017 Mood disorder F39 [place] [id number] [place] [address] 24738- 8689 Apr, [facility] [id number] [place] [address] 57058 -4399 Mar, Acute gastroenteritis K52.9 [facility] [place] [id number] [place] [address] 57295 -9509 Mar, Anxiety F41.9 [place] [id number] [place] [address] 54391- 9950 Mar, Depressive disorder, not elsewhere classified F32.9 and Anxiety state, unspecified F41.1 [place] [id number] [place] [address] 35889- 8838 December, Dental examination Z01.20 [place] [id number] [place] [address] 64438- 0075 15 Jun, 2016 Encounter for test Z32.00 [facility] [id number] [place] [address] 81804 -3685 Feb, Abscess of left leg L02.416 and Wound of left breast, initial encounter S21.002A [facility] [address] [id number] [address] Jan, Dental examination V72.2 [facility] [address] [id number][place] [address] December, Dental examination V72.2 [facility] [address] [id number][place] [address] December, Dental examination V72.2 [facility] [address] [id number][place] [address] December, Dental examination V72.2 [facility] [address] [id number], [place] [address]- [address] Nov, [facility] [address] [id number], [place] [address]- 0936 Nov, [facility] [address] [id number], [place] [address]- 8716 Oct, [facility] [address] [id number], [place] [address]- 0666 Oct, [facility] [address] [id number], [place] [address]- 5096 Oct, [facility] [address] [id number], [place] [address]- 2016 18 Oct, 2014 [facility] [address] [id number], [place] [address]- 0796 12 Oct, 2014 [facility] [address] [id number], [place] [address] 2546 11 Oct, 2014 [facility] [address] [id number], [place] [address] 2546 Oct, [facility] [address] [id number], [place] [address]- 8106 Oct, [facility] [address] [id number], [place] [address]- 9346 Jun, [facility] [address], [place] [address]- 8002 Jun, [facility] [address] Jun, [facility] [address], [place] [address]- 4728 Jun, [facility] [address] [address] Apr, [facility] [address] [place] [address] 391852- 0605 Mar, [facility] [address], [place] [address]- 2117 Apr, [facility] [address] [place] [address] 40318- 1088 Apr, [facility] [address], [place] [address]- 7759 May, [facility] [address], [place] [address]- 7119 May, [facility] [address], [place] [address]- 6874 May, [facility] [address], [place] [address]- 9586 Feb, [facility] [address], [place] [address]- 4710 December, [facility] [address] [address] December, [facility] [address] Nov, IMMUNIZATIONS No Known Immunizations SOCIAL HISTORY Never Assessed REASON FOR VISIT Controlled Med Refill PLAN OF CARE VITAL SIGNS MEDICATIONS Medication Instructions Dosage Frequency Start Date End Date Duration Status Xanax 0.5 MG Orally Three times a day 1 tablet as needed 8h Active RESULTS No Results PROCEDURES No Known procedures INSTRUCTIONS MEDICATIONS ADMINISTERED No Known Medications MEDICAL (GENERAL) HISTORY Type Description Date Medical History anxiety Medical History depression Surgical History section x2 Surgical History cholecystectomy Hospitalization History Surgery(s)/Childbirth(s) Hospitalization History anxiety 2012
--- OUTSIDE RECORDS SUMMARY | 2018-09-19 19:51 | XMS REPORT | Continuity of Care Document ---
Author Author [facility] Ctr of [facility] Ctr of [facility] Address Unknown Phone Unavailable Allergies Active Description Code Type Severity Reaction Onset Reported/Identified Relationship to Patient Clinical Status Yes NO KNOWN DRUG ALLERGIES UNKNOWN NO KNOWN DRUG ALLERG Yes No Known Drug Allergies [id number] Drug Allergy Unknown N/A 11/14/2016 Medications There is no data. Problems Date Dx Coded Attending Type Code Diagnosis Diagnosed By 12/26/2008 296.9 MOOD DIS NOS 12/26/2008 296.9 MOOD DIS NOS 12/26/2008 DANYELL ZHAO APRN A 296.9 MOOD DIS NOS 12/26/2008 SHA ZHAO APRNIDI A 296.9 MOOD DIS NOS 12/28/2008 296.90 MOOD DISORDER 12/28/2008 300.00 ANXIETY UNSPEC 12/28/2008 311 DEPRESSIVE DISORDER NOS 12/28/2008 296.90 MOOD DISORDER 12/28/2008 300.00 ANXIETY UNSPEC 12/28/2008 311 DEPRESSIVE DISORDER NOS 12/28/2008 SHA ZHAO APRNIDI A 296.90 MOOD DISORDER 12/28/2008 CECE FELIX, DANYELL A 300.00 ANXIETY UNSPEC 12/28/2008 CECE APRN, DANYELL A 311 DEPRESSIVE DISORDER NOS 12/28/2008 CECE APRN, DANYELL A 296.90 MOOD DISORDER 12/28/2008 SHA ZHAO APRNIDI A 300.00 ANXIETY UNSPEC 12/28/2008 SHA ZHAO APRNIDI A 311 DEPRESSIVE DISORDER NOS 12/18/2009 844.9 SPRAIN/STRAIN KNEE/LEG 12/18/2009 844.9 SPRAIN/STRAIN KNEE/LEG 12/18/2009 SHA ZHAO APRNIDI A 844.9 SPRAIN/STRAIN KNEE/LEG 12/18/2009 SHA ZHAO APRNIDI A 844.9 SPRAIN/STRAIN KNEE/LEG 01/02/2010 623.5 LEUKORRHEA, NOT SPECIFIED INFECTIVE 01/02/2010 V25.42 SURVEILLANCE OF PREVIOUSLY PRESCRIBED CONTRACEPTIVE METHODS, INTRAUTERINE CONTRACEPTIVE DEVICE 01/02/2010 623.5 LEUKORRHEA, NOT SPECIFIED INFECTIVE 01/02/2010 V25.42 SURVEILLANCE OF PREVIOUSLY PRESCRIBED CONTRACEPTIVE METHODS, [...] 03/04/2011 DANYELL ZHAO APRN 305.1 TOBACCO ABUSE 03/04/2011 DANYELL ZHAO APRN 305.1 TOBACCO ABUSE 04/07/2011 Ot 922.31 BACK CONTUSION 04/07/2011 Ot 959.19 OTH INJURY OF OTHER SITES OF TRUNK 04/07/2011 Ot E000.8 OTHER EXTERNAL CAUSE STATUS 04/07/2011 Ot E849.0 ACCIDENT IN HOME 04/07/2011 Ot E888.9 FALL NOS 04/21/2011 296.32 MO DEPRESSIVE RECURRENT MODERATE 04/21/2011 296.32 MO DEPRESSIVE RECURRENT MODERATE 04/21/2011 DANYELL ZHAO APRN 296.32 MO DEPRESSIVE RECURRENT MODERATE 04/21/2011 DANYELL [...] APRN 575.9 GALLBLADDER DISEASE UNSPEC 05/02/2013 575.11 CHOLECYSTITIS , CHRONIC 05/02/2013 DANYELL ZHAO APRN 575.11 CHOLECYSTITIS, [...] SMOKING CESSATION 10/31/2014 DANYELL ZHAO APRN V72.31 GEOTECHNICAL ENGINEER EXAM, ROUTINE 10/31/2014 DANYELL ZHAO APRN V73.81 HPV SCREENING 10/31/2014 DANYELL ZHAO APRN V74.5 STD SCREEN 10/31/2014 DANYELL ZHAO APRN V76.2 CERVICAL CANCER SCREENING (PAP SMEAR) 12/30/2014 ROB BROWN, DIXIE Mittal Ot 574.20 12/30/2014 DIXIE RIVAS MD Ot V72.83 12/30/2014 DIXIE RIVAS MD Ot V74.8 12/30/2014 YAS DOAN Ot 873.63 TOOTH (BROKEN) (FRACTURED) (DUE TO TRAUM 12/30/2014 JOANNA DOANEN L Ot 920 CONTUSION FACE/SCALP/NCK 12/30/2014 JOANNA DOANEN L Ot E000.8 OTHER EXTERNAL CAUSE STATUS 12/30/2014 JOANNA DOANEN Melanie Ot E885.9 FALL FROM SLIPPING, TRIPPING, OR STUMBLI 01/03/2015 YAS DOAN Ot 873.63 01/03/2015 YAS DOAN Ot 920 01/03/2015 YAS DOAN Ot E000.8 01/03/2015 YAS DOAN Ot E885.9 08/02/2016 ROB BROWN, DIXIE Mittal Ot 574.20 CHOLELITHIASIS NOS 08/02/2016 ROB BROWN, DIXIE Mittal Ot V72.83 EXAM PRE-OPERATIVE NEC 08/02/2016 ROB BROWN, DIXIE Mittal Ot V74.8 SCREEN-BACTERIAL DIS NEC 08/02/2016 ROMINA MAC APRN Ot O23.42 UNSP INFCT OF URINARY TRACT IN 08/02/2016 ROMINA MAC APRN Ot R10.32 LEFT LOWER QUADRANT PAIN 08/02/2016 ROMINA MAC APRN Ot Z3A.19 19 WEEKS GESTATION OF 08/04/2016 ROMINA MAC APRN Ot O23.42 UNSP INFCT OF URINARY TRACT IN 08/04/2016 ROMINA MAC APRN Ot R10.32 LEFT LOWER QUADRANT PAIN 08/04/2016 ROMINA MAC APRN Ot Z3A.19 19 WEEKS GESTATION OF 08/29/2016 JASWINDER STATON MD Ot 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 09/17/2016 JASWINDER STATON MD Ot O30.002 TWIN PREG, UNSP NUM PLCNTA AMNIO SACS, 09/17/2016 JASWINDER STATON MD, Ot Z3A.26 26 WEEKS GESTATION OF 09/19/2016 JASWINDER STATON MD, Ot O30.002 TWIN PREG, [...] COMPLETED WEEKS OF 10/08/2016 JASWINDER STATON MD, Ot Z3A.29 29 WEEKS GESTATION OF 10/31/2016 JASWINDER STATON [...] TWIN PREG, UNSP NUM PLCNTA AMNIO SACS, 11/13/2016 FENECH DO, LORENZA Yeboah Ot O47.03 FALSE LABOR BEFORE 37 COMPLETED WEEKS OF 11/13/2016 FENECH DOLORENZA Ot Z3A.35 35 WEEKS GESTATION OF 11/14/2016 FENECH DO, LORENZA Yeboah Ot O30.003 TWIN PREG, UNSP NUM PLCNTA AMNIO SACS, 11/14/2016 FENECH DO, LORENZA Yeboah Ot O99.89 OTH DISEASES AND CONDITIONS COMPL PREG/C 11/14/2016 FENECH DO, LORENZA S Ot R10.2 PELVIC AND PERINEAL PAIN 11/14/2016 FENECH DO, LORENZA S Ot Z3A.35 35 WEEKS GESTATION OF 11/18/2016 FENECH DO, LORENZA S Ot O30.003 TWIN PREG, UNSP NUM PLCNTA AMNIO SACS, 11/18/2016 FENECH DO, LORENZA Yeboah Ot O99.89 OTH DISEASES AND CONDITIONS COMPL PREG/C 11/18/2016 FENECH DO, LORENZA S Ot R10.2 PELVIC AND PERINEAL PAIN 11/18/2016 FENECH DO, LORENZA Yeboah Ot Z3A.35 35 WEEKS GESTATION OF 11/21/2016 JASWINDER STATON MD, Ot O30.033 TWIN , MONOCHORIONIC/DIAMNIOTIC 11/21/2016 JASWINDER STATON MD, Ot O60.03 LABOR WITHOUT DELIVERY, THIRD TR 11/21/2016 JASWINDER STATON MD, Ot Z3A.35 35 WEEKS GESTATION OF 11/22/2016 JASWINDER STATON MD, Ot O30.033 TWIN , MONOCHORIONIC/DIAMNIOTIC 11/22/2016 JASWINDER STATON MD, Ot O60.03 LABOR WITHOUT DELIVERY, THIRD TR 11/22/2016 JASWINDER STATON MD, Ot3A.36 36 WEEKS GESTATION OF 11/24/2016 JASWINDER STATON MD, Ot O30.033 TWIN , MONOCHORIONIC/DIAMNIOTIC 11/24/2016 JASWIDNER STATON MD, Ot O34.211 MATERN CARE FOR LOW TRANSVERSE SCAR FROM 11/24/2016 JASWINDER STATON MD, Ot O60.14X0 LABOR THIRD TRI W DELIVE 11/24/2016 JASWINDER STATON MD, Ot Z23 ENCOUNTER FOR IMMUNIZATION 11/24/2016 JASWINDER STATON MD, Ot Z37.0 SINGLE LIVE 11/24/2016 JASWINDER STATON MD, Ot3A.36 36 WEEKS GESTATION OF 11/25/2016 JASWINDER STATON MD, Ot O30.033 TWIN , MONOCHORIONIC/DIAMNIOTIC 11/25/2016 JASWINDER STATON MD, Ot O60.03 LABOR WITHOUT DELIVERY, THIRD TR 11/25/2016 JASWINDER STATON MD, Ot Z3A.36 36 WEEKS GESTATION OF 06/10/2017 ROB BROWN, DIXIE Mittal Ot 574.20 CHOLELITHIASIS NOS 06/10/2017 ROB BROWN, DIXIE Mittal Ot V72.83 EXAM PRE-OPERATIVE NEC 06/10/2017 ROB BROWN, DIXIE Mittal Ot V74.8 SCREEN-BACTERIAL DIS NEC 06/10/2017 YAS DOAN Ot F17.210 NICOTINE DEPENDENCE, CIGARETTES, UNCOMPL 06/10/2017 YAS DOAN Ot F41.9 ANXIETY DISORDER, UNSPECIFIED 06/10/2017 YAS DOAN Ot F90.9 ATTENTION-DEFICIT HYPERACTIVITY DISORDER 06/10/2017 YAS DOAN Ot M54.5 LOW BACK PAIN 06/10/2017 YAS DOAN Ot N39.0 URINARY TRACT INFECTION, SITE NOT SPECIF 06/10/2017 YAS DOAN Ot S39.012A STRAIN OF MUSCLE, FASCIA AND TENDON OF L 06/10/2017 YAS DOAN Ot X58.XXXA EXPOSURE TO OTHER SPECIFIED FACTORS, INI 06/10/2017 YAS DOAN Ot Z87.59 PERSONAL HISTORY OF COMP OF PREG, CHLDBR 07/04/2018 Romina Mac 717.9 UNSPECIFIED INTERNAL DERANGEMENT OF KNEE 07/04/2018 Romina Mac M23.8X2 OTHER INTERNAL DERANGEMENTS OF LEFT KNEE 07/16/2018 ROBERT MORRIS Ot M22.42 CHONDROMALACIA PATELLAE, LEFT KNEE 07/16/2018 ROBERT MORRIS Ot M25.462 EFFUSION, LEFT KNEE 08/03/2018 ROBERT MORRIS Ot M22.42 CHONDROMALACIA PATELLAE, LEFT KNEE 08/03/2018 ROBERT MORRIS Ot M25.462 EFFUSION, LEFT KNEE Procedures Code Description [place] [address] US PELVIC COMPL (REFLEX CPT - 79812) 07/14/2013 97891 URINE TEST (IN- HOUSE) 07/14/2013 [id number] EXTRACTION OF POC, LOW CERVICAL, OPEN AP 11/22/2016 [id number] EXTRACTION OF POC, LOW CERVICAL, OPEN AP 11/23/2016 Results Test Result Range Complete urinalysis with reflex to culture - 08/02/16 17:25 Urine color determination YELLOW NRG Urine clarity determination CLEAR NRG Urine pH measurement by test strip 7 5-9 Specific gravity of urine by test strip 1.010 1.016- 1.022 Urine protein assay by test strip, semi-quantitative [...] 17:34 Blood leukocytes automated count (number/volume) 8.9 10*3/uL 4.3-11.0 Blood erythrocytes automated count (number/volume) 3.82 10*6/uL 4.35-5.85 Venous blood hemoglobin measurement (mass/volume) 11.9 [...] Automated blood platelet mean volume measurement 10.4 [foz_us] 7.4-10.4 Automated blood neutrophils/100 leukocytes 68 % [...] 17:34 Serum or plasma choriogonadotropin measurement (units/volume) 44530 m[iU]/mL <5 Microscopic examination by wet preparation - 08/02/16 17:59 WET PREP RESULTS 08/02/16 18:20 BY [facility] Complete blood count (CBC) with automated white blood cell (WBC) differential - 08/29/16 09:40 Blood leukocytes automated count (number/volume) 9.5 10*3/uL 4.3-11.0 Blood erythrocytes automated count (number/volume) 3.61 10*6/uL 4.35-5.85 Venous blood hemoglobin measurement (mass/volume) 11.3 [...] Automated blood platelet mean volume measurement 11.2 [foz_us] 7.4-10.4 Automated blood neutrophils/100 leukocytes 74 % [...] Serum or plasma sodium measurement (moles/volume) 134 mmol/L 135-145 Serum or plasma potassium measurement (moles/volume) 4.1 mmol/L 3.6-5.0 Serum or plasma chloride measurement (moles/volume) 109 mmol/L 98-107 Carbon dioxide 16 mmol/L 21-32 Serum or plasma anion gap determination (moles/volume) 9 mmol/L 5-14 Serum or plasma urea nitrogen measurement (mass/volume) 4 mg/dL 7-18 Serum or plasma creatinine measurement (mass/volume) 0.52 mg/dL 0.60-1.30 Serum or plasma urea nitrogen/creatinine mass [...] Urine pH measurement by test strip 8 5-9 Specific gravity of urine by test strip 1.010 1.016- 1.022 Urine protein assay by test strip, semi-quantitative [...] Urine pH measurement by test strip 7 5-9 Specific gravity of urine by test strip 1.010 1.016- 1.022 Urine protein assay by test strip, semi-quantitative [...] Urine pH measurement by test strip 6.5 5-9 Specific gravity of urine by test strip 1.015 1.016- 1.022 Urine protein assay by test strip, semi-quantitative [...] Urine pH measurement by test strip 6 5-9 Specific gravity of urine by test strip 1.020 1.016- 1.022 Urine protein assay by test strip, semi-quantitative [...] 6-12 Urine creatinine measurement (mass/volume) 187 mg/dL 30- 125 Urine protein/creatinine mass ratio 0.25 NRG Bacterial urine culture - 11/20/16 20:00 URINE CULTURE RESULTS <10,000/ML NRG Complete blood count (CBC) with automated white blood cell (WBC) differential - 11/22/16 22:40 Blood leukocytes automated count (number/volume) 15.8 10*3/uL 4.3-11.0 Blood erythrocytes automated count (number/volume) 3.95 10*6/uL 4.35-5.85 Venous blood hemoglobin measurement (mass/volume) 11.6 [...] Automated blood platelet mean volume measurement 11.5 [foz_us] 7.4-10.4 Automated blood neutrophils/100 leukocytes 79 % [...] ABO+Rh group OP NRG Transfusion band number [id number] NRG Blood group antibody screen NEGATIVE NRG [...] Bacteria identification in isolate by anaerobe culture [id number] NRG Gram stain microscopy - 11/23/16 08:50 Gram stain microscopy Occasional gram negative meliton NRG Bacteria identification in wound by culture - 11/23/16 08:50 Bacteria identification in wound by culture [id number] NRG FREE TEXT EXTERNAL (NONENTEROCOCCUS) NRG QUANTITY OF GROWTH Scant Growth NRG Complete urinalysis with reflex to culture - 06/10/17 19:29 Urine color determination YELLOW NRG Urine clarity determination CLEAR NRG Urine pH measurement by test strip 6 5-9 Specific gravity of urine by test strip 1.020 1.016- 1.022 Urine protein assay by test strip, semi-quantitative [...] detection in urine sediment by light microscopy 0-2 NRG Crystals detection in urine sediment by light microscopy NONE NRG Casts detection in urine sediment by light microscopy NONE NRG Mucus detection in urine sediment by light microscopy NEGATIVE NRG Complete urinalysis with reflex to culture YES NRG Bacterial urine culture - 06/10/17 19:29 Bacterial urine culture [id number] NRG COLONY COUNT >100,000/ML NRG FTX;REPORTABLE SENSITIVITY REPORTED AT 1611, 06-11-17 NRG URINE CULTURE RESULTS PLUS NRG Bacterial susceptibility panel - 06/10/17 19:29 Gentamicin susceptibility test by minimum inhibitory concentration < = NRG Trimethoprim/sulfamethoxazole susceptibility test by minimum inhibitoryconcentration <= NRG Ampicillin susceptibility test by minimum inhibitory concentration R NRG Tobramycin susceptibility test by minimum inhibitory concentration < = NRG Cefazolin susceptibility test by minimum inhibitory concentration < = NRG Ceftriaxone susceptibility test by minimum inhibitory concentration <= NRG Ampicillin/sulbactam susceptibility test by minimum inhibitory concentration 4 NRG Piperacillin/tazobactam susceptibility test by minimum inhibitory concentration <= NRG Ciprofloxacin susceptibility test by minimum inhibitory concentration <= NRG Meropenem susceptibility test by minimum inhibitory concentration < = NRG Nitrofurantoin susceptibility test by minimum inhibitory concentration 64 NRG Aztreonam susceptibility test by minimum inhibitory concentration < = NRG Extended spectrum beta lactamase (ESBL) producing bacteria susceptibility test by minimum inhibitory concentration - NRG Encounters ACCT No. Visit Date/Time Discharge Status Pt. 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 Naqvi [id number] 07/14/2013 10:03:00 07/14/2013 23:59:59 CLS Outpatient CECE PACHCEODANYELL Naqvi [id number] 05/02/2013 15:30:00 Document Registration [id number] 04/20/2013 14:32:00 Document Registration [id number] 12/31/2014 01:55:59 ACT Document Registration [id number] 07/04/2018 16:56:00 07/04/2018 18:00:00 DIS Outpatient Romina Mac [id number] 07/14/2018 08:51:00 07/14/2018 23:59:59 CLS Outpatient ROBERT MORRIS [facility] RAD OTHER CHRONIC PAIN [id number] 06/10/2017 18:36:00 06/10/2017 20:00:00 DIS Emergency YAS DOAN [facility] ER LOWER LEFT SIDED BACK PAIN [id number] 11/23/2016 03:16:00 11/24/2016 14:42:00 DIS Inpatient JASWINDER STATON MD [facility] LDRP CONTRACTIONS [id number] 11/22/2016 17:23:00 11/22/2016 19:57:00 DIS Outpatient JASWINDER STATON MD [facility] WSo CONTRACTIONS [id number] 11/20/2016 20:00:00 11/21/2016 07:47:00 DIS Inpatient JASWINDER STATON MD [facility] LDRP CONTRACTIONS [id number] 11/14/2016 20:07:00 11/14/2016 20:57:00 DIS Outpatient LORENZA ANGELES DO [facility] BETAMETHASONE INJ [id number] 11/13/2016 19:27:00 11/13/2016 22:10:00 DIS Outpatient ANTHONYLORENZA RICK DO [facility] WSo CONTRACTIONS [id number] 10/31/2016 18:45:00 10/31/2016 20:45:00 DIS Outpatient JASWINDER STATON MD [facility] WSo CRAMPING, TWINS [id number] 10/06/2016 21:46:00 10/07/2016 00:42:00 DIS Outpatient JASWINDER STATON MD [facility] WSo CONTRACTIONS [id number] 09/17/2016 20:15:00 09/17/2016 21:57:00 DIS Outpatient JASWINDER STATON MD [facility] WSo ABD TIGHTNESS, PRESSURE [id number] 08/29/2016 09:26:00 08/29/2016 11:30:00 DIS Outpatient JASWINDER STATON MD [facility] WSo DEHYDRATION [id number] 08/02/2016 16:35:00 08/02/2016 19:40:00 DIS Emergency ROMINA MAC APRN [facility] ER STOMACH PAIN [id number] 12/30/2014 13:54:00 12/30/2014 18:35:00 DIS Emergency YAS DOAN [facility] ER TOOTH CRACKED [id number] 05/10/2013 07:36:00 05/10/2013 13:30:00 DIS Outpatient DIXIE RIVAS MD [facility] SDC GALLSTONES [id number] 05/05/2013 07:56:00 05/05/2013 23:59:59 CLS Outpatient DIXIE RIVAS MD [facility] PREOP GALLSTONES [id number] 04/17/2013 20:21:00 04/17/2013 22:40:00 DIS Emergency AARON RYAN DO [facility] ER ABD PAIN [id number] 12/30/2014 13:54:00 Document Registration [id number] 10/23/2011 15:53:00 Document Registration [id number] 05/24/2011 11:21:00 Document Registration [id number] 04/07/2011 13:05:00 Document Registration [id number] 12/03/2010 21:55:00 Document Registration [id number] 01/08/2010 18:33:00 Document Registration [id number] 07/21/2018 11:00:00 07/21/2018 23:59:59 [facility]
--- NOTE | 2018-09-19 19:52 | ED GU-Female ---
General Stated Complaint: 10 WKS ,BLEEDING Source: patient Exam Limitations: no limitations History of Present Illness Date Seen by Provider: Sep 19, 2018 Time Seen by Provider: 19:51 Initial Comments To ER with reports of suprapubic fullness, vaginal bleeding for about 3-4 hours. She believes herself to be about 10 weeks based on her last normal menstrual period. However she has an IUD and she states that that was expelled today with some of the vaginal bleeding. No fevers or chills. She has not taken any test at home to determine status. Timing/Duration: constant Severity/Quality: moderate Location: suprapubic Radiation: none Activities at Onset: none Prior Genitourinary Problems: none Allergies and Home Medications Allergies Coded Allergies: No Known Drug Allergies (Verified , 11/14/16) Home Medications Cephalexin 250 Mg Capsule, 500 MG PO QID Prescribed by: JASWINDER SPARROW on 11/24/16750 Cephalexin 500 Mg Capsule, 500 MG PO TID Prescribed by: YAS GONZALEZ on 06/10/171952 Cyclobenzaprine HCl 10 Mg Tablet, 10 MG PO Q8H PRN for SPASMS Prescribed by: YAS GONZALEZ on 06/10/171952 Docusate Sodium 100 Mg Capsule, 100 MG PO BID Prescribed by: JASWINDER SPARROW on 11/24/16750 Hydrocodone/Acetaminophen 1 Each Tablet, 1 EACH PO Q6H PRN for PAIN-MODERATE Prescribed by: ROMINA LEDESMA on 09/19/182156 Ibuprofen 800 Mg Tablet, 800 MG PO Q6H Prescribed by: JASWINDER SPARROW on 11/24/16750 Naproxen 500 Mg Tablet, 500 MG PO BID PRN for pain Prescribed by: YAS GONZALEZ on 06/10/171952 Omeprazole Magnesium 20 Mg Tablet.dr, 20 MG PO DAILY, (Reported) Oxycodone HCl/Acetaminophen 1 Each Tablet, 1-2 TAB PO Q4H PRN for PAIN Prescribed by: JASWINDER SPARROW on 11/24/16750 Phenazopyridine HCl 200 Mg Tablet, 1 TAB PO Q8H PRN for pain Prescribed by: YAS GONZALEZ on 06/10/171952 Vit W-Ca,Fe,FA(<1 mg) 1 Each Tablet, 1 EACH PO DAILY, (Reported) Patient Home Medication List Home Medication List Reviewed: Yes Review of Systems Review of Systems Constitutional: see HPI EENTM: see HPI Respiratory: no symptoms reported Cardiovascular: no symptoms reported Genitourinary: see HPI Musculoskeletal: no symptoms reported Skin: no symptoms reported Psychiatric/Neurological: No Symptoms Reported Endocrine: No Symptoms Reported Past Kselfwd-Vjpfwn-Uykwma Hx Patient Social History Type Used: Cigarettes 2nd Hand Smoke Exposure: Yes Recent Foreign Travel: No Contact w/Someone Who Travel: No Recent Hopitalizations: No Immunizations Up To Date Tetanus Booster (TDap): Unknown Date of Influenza Vaccine: Sep 17, 2016 Seasonal Allergies Seasonal Allergies: No Past Medical History Surgeries: Yes Section, Gallbladder Respiratory: No Cardiac: No Neurological: No Genitourinary: No Gastrointestinal: No Musculoskeletal: No Endocrine: No HEENT: Yes (WEARS GLASSES) Cancer: No Psychosocial: Yes ADD/ADHD, Anxiety Integumentary: No Blood Disorders: No Family Medical History Hypertension GRANDMOTHER, MATERNAL No Pertinent Family Hx Physical Exam Vital Signs Vital Signs - First Documented 09/19/18 19:48 Temp 98.2 Pulse 105 Resp 18 B/P (MAP) 121/85 (97) Pulse Ox 100 O2 Delivery Room Air Capillary Refill : Height, Weight, BMI Height: 5'8.00" Weight: 195lbs. 0.2oz. 88.808053wn; 38.6 BMI Method:Stated General Appearance: WD/WN, no apparent distress HEENT: PERRL/EOMI, normal ENT inspection Neck: non-tender, full range of motion Respiratory: no respiratory distress, no accessory muscle use Gastrointestinal: normal bowel sounds, non tender Extremities: normal range of motion, non-tender Neurologic/Psychiatric: alert, normal mood/affect, oriented x 3 Skin: normal color, warm/dry Progress/Results/Core Measures Suspected Sepsis SIRS Temperature: Pulse: Respiratory Rate: Laboratory Tests 09/19/18 19:58: White Blood Count 9.2 Blood Pressure / Mean: Laboratory Tests 09/19/18 19:58: Creatinine 0.67, Platelet Count 238 Results/Orders Lab Results Laboratory Tests Test 09/19/18 19:58 09/19/18 21:33 Range/Units White Blood Count 9.2 4.3-11.0 10^3/uL Red Blood Count 4.49 4.35-5.85 10^6/uL Hemoglobin 13.3 11.5-16.0 G/DL Hematocrit 39 35-52 % Mean Corpuscular Volume 87 80-99 FL Mean Corpuscular Hemoglobin 30 25-34 PG Mean Corpuscular Hemoglobin Concent 34 32-36 G/DL Red Cell Distribution Width 13.0 10.0-14.5 % Platelet Count 238 130-400 10^3/uL Mean Platelet Volume 10.5 H 7.4-10.4 FL Neutrophils (%) (Auto) 63 42-75 % Lymphocytes (%) (Auto) 28 12-44 % Monocytes (%) (Auto) 6 0-12 % Eosinophils (%) (Auto) 2 0-10 % Basophils (%) (Auto) 0 0-10 % Neutrophils # (Auto) 5.8 1.8-7.8 X 10^3 Lymphocytes # (Auto) 2.6 1.0-4.0 X 10^3 Monocytes # (Auto) 0.6 0.0-1.0 X 10^3 Eosinophils # (Auto) 0.2 0.0-0.3 10^3/uL Basophils # (Auto) 0.0 0.0-0.1 10^3/uL Sodium Level 138 135-145 MMOL/L Potassium Level 3.5 L 3.6-5.0 MMOL/L Chloride Level 109 H 98-107 MMOL/L Carbon Dioxide Level 19 L 21-32 MMOL/L Anion Gap 10 5-14 MMOL/L Blood Urea Nitrogen 5 L 7-18 MG/DL Creatinine 0.67 0.60-1.30 MG/DL Estimat Glomerular Filtration Rate > 60 BUN/Creatinine Ratio 7 Glucose Level 96 70-105 MG/DL Calcium Level 9.4 8.5-10.1 MG/DL Human Chorionic Gonadotropin, Quant 1339 H <5 MIU/ML Serum Test, Qualitative POSITIVE NEGATIVE Urine Color RED H Urine Clarity BLOODY H Urine pH 5 5-9 Urine Specific Spur 1.015 L 1.016-1.022 Urine Protein 3+ H NEGATIVE Urine Glucose (UA) NEGATIVE NEGATIVE Urine Ketones NEGATIVE NEGATIVE Urine Nitrite NEGATIVE NEGATIVE Urine Bilirubin NEGATIVE NEGATIVE Urine Urobilinogen NORMAL NORMAL MG/DL Urine Leukocyte Esterase 2+ H NEGATIVE Urine RBC (Auto) 5+ H NEGATIVE Urine RBC TNTC H /HPF Urine WBC 5-10 H /HPF Urine Squamous Epithelial Cells 0-2 /HPF Urine Renal Epithelial Cells NONE /HPF Urine Crystals NONE /LPF Urine Bacteria NEGATIVE /HPF Urine Casts NONE /LPF Urine Mucus NEGATIVE /LPF Urine Culture Indicated YES My Orders Orders - ROMINA LEDESMA APRN Urine Bedside (09/19/18 19:50) Ua Culture If Indicated (09/19/18 19:54) Hcg,Qualitative Serum (09/19/18 19:58) Rx-Hydrocodone/Apap 5-325 Mg (Rx-Vicodin (09/19/18 21:30) Urine Culture (09/19/18 21:33) Cephalexin Capsule (Keflex Capsule) (09/19/18 22:15) Medications Given in ED Current Medications Medications Dose Ordered Sig/Laith Route Start Time Stop Time Status Last Admin Dose Admin Acetaminophen/ Hydrocodone Bitart 1 ea Q4H PRN PO 09/19/18 21:30 09/19/18 21:31 1 EA Vital Signs/I&O 09/19/18 19:48 Temp 98.2 Pulse 105 Resp 18 B/P (MAP) 121/85 (97) Pulse Ox 100 O2 Delivery Room Air Capillary Refill : Diagnostic Imaging Diagonstic Imaging: Xray Comments NAME: MINH LEDESMA [facility] REC#: [id number] PT STATUS: REG ER : 1985 PHYSICIAN: AARON RYAN DO ADMIT DATE: 09/19/18/ER Draft Date of Exam:09/19/18 US OB<14 WKS SNGLE W/TRANSVAG INDICATION: Threatened miscarriage. EXAMINATION: OB sonogram. FINDINGS: The uterus is enlarged. It measures 11.5 x 6.0 x 6.9 cm. Endometrial stripe is 9 mm. There is no significant evidence for an intrauterine or extrauterine . Neither ovary can be located, sonographically. The adnexa appear grossly normal. There is no free fluid. IMPRESSION: Enlarged uterus. There is no sonographic evidence for an intrauterine or extrauterine . Dictated on workstation # [id number] Dict: 09/19/182099 Trans: 09/19/182 [facility] [id number] Interpreted by: ALLIE HOLT MD Electronically signed by: Departure Impression Primary Impression: Miscarriage Additional Impression: Urinary tract infection Qualified Codes: N30.00 - Acute cystitis without hematuria Disposition: 01 HOME, SELF-CARE Condition: Stable Departure-Patient Inst. Decision time for Depature: 20:56 Referrals: [facility] (PCP) Primary Care Physician ROBERT MORRIS (Family) Primary Care Physician Patient Instructions: Miscarriage (DC) Add. Discharge Instructions: 1. Pain medication as directed 2. Call your doctor for follow-up tomorrow. Return to ER for any concerns. Scripts Cephalexin (Keflex) 500 Mg Capsule 500 MG PO TID, #15 CAP Prov: ROMINA LEDESMA APRN 09/19/18 Hydrocodone/Acetaminophen ([place] 5-325 Tablet) 1 Each Tablet 1 EACH PO Q6H PRN for PAIN-MODERATE, #14 TAB Prov: ROMINA LEDESMA APRN 09/19/18 ROMINA LEDESMA APRN Sep 19, 2018 19:52
[2018-09-19 20:05] LABS: BASOPHILS % (AUTO) 0 % (0-10); EOSINOPHILS # (AUTO) 0.2 10^3/uL (0.0-0.3); EOSINOPHILS % (AUTO) 2 % (0-10); HEMATOCRIT 39 % (35-52); HEMOGLOBIN 13.3 G/DL (11.5-16.0); LYMPHOCYTES # (AUTO) 2.6 X 10^3 (1.0-4.0); LYMPHOCYTES % (AUTO) 28 % (12-44); MEAN CORPUSCULAR HEMOGLOBIN 30 PG (25-34); MEAN CORPUSCULAR HGB CONC 34 G/DL (32-36); MEAN CORPUSCULAR VOLUME 87 FL (80-99); MEAN PLATELET VOLUME 10.5 FL (7.4-10.4); MONOCYTES # (AUTO) 0.6 X 10^3 (0.0-1.0); MONOCYTES % (AUTO) 6 % (0-12); NEUTROPHILS # (AUTO) 5.8 X 10^3 (1.8-7.8); NEUTROPHILS % (AUTO) 63 % (42-75); PLATELET COUNT 238 10^3/uL (130-400); WHITE BLOOD COUNT 9.2 10^3/uL (4.3-11.0)
[2018-09-19 20:32] LABS: BUN/CREATININE RATIO 7; CALCIUM 9.4 MG/DL (8.5-10.1); CARBON DIOXIDE 19 MMOL/L (21-32); CHLORIDE 109 MMOL/L (98-107); CREATININE SERUM 0.67 MG/DL (0.60-1.30); GFR ESTIMATED > 60; GLUCOSE 96 MG/DL (70-105); POTASSIUM 3.5 MMOL/L (3.6-5.0); SODIUM 138 MMOL/L (135-145)
--- NOTE | 2018-09-19 21:06 | Diagnostic Imaging Report ---
INDICATION: Threatened miscarriage. EXAMINATION: OB sonogram. FINDINGS: The uterus is enlarged. It measures 11.5 x 6.0 x 6.9 cm. Endometrial stripe is 9 mm. There is no significant evidence for an intrauterine or extrauterine . Neither ovary can be located, sonographically. The adnexa appear grossly normal. There is no free fluid. IMPRESSION: Enlarged uterus. There is no sonographic evidence for an intrauterine or extrauterine . Dictated by: Dictated on workstation # [id number]
[2018-09-19] MEDS: RX-HYDROCODONE/APAP 5/325 MG #4 TAB PK PO PRN (21:31)
[2018-09-19 21:46] LABS: BILIRUBIN,URINE NEGATIVE (NEGATIVE); CLARITY,URINE BLOODY; COLOR,URINE RED; GLUCOSE, URINE (UA) NEGATIVE (NEGATIVE); KETONES,URINE NEGATIVE (NEGATIVE); LEUKOCYTE ESTERASE ,URINE 2+ (NEGATIVE); NITRITE,URINE NEGATIVE (NEGATIVE); PH,URINE 5 (5-9); PROTEIN,URINE 3+ (NEGATIVE); UROBILINOGEN,URINE NORMAL (NORMAL)
[2018-09-19 21:57] LABS: BACTERIA,URINE NEGATIVE /HPF; RBC,URINE TNTC /HPF; SQUAMOUS EPITHELIAL CELL,UR 0-2 /HPF
[2018-09-19] MEDS ORDERED: HYDR-4226 PO (21:57)
[2018-09-19] MEDS ORDERED: CEPH-507 PO (22:02)
[2018-09-19 22:13] VITALS: BP 119/67
[2018-09-19] MEDS ORDERED: CEPHALEXIN 250 MG (KEFLEX) CAP PO ONE (22:15)
== END 2018-09-19 22:14 | disposition home or self-care (01) ==
LOC: EDUNIT# 19:39 → ER 19:41
DX: O03.9 Complete or unspecified spontaneous abortion without complication (principal); N39.0 Urinary tract infection, site not specified; F41.9 Anxiety disorder, unspecified; F98.8 Other specified behavioral and emotional disorders with onset usually occurring in childhood and adolescence; F90.9 Attention-deficit hyperactivity disorder, unspecified type; Z97.5 Presence of (intrauterine) contraceptive device; Z82.49 Family history of ischemic heart disease and other diseases of the circulatory system; Z3A.10 10 weeks gestation of pregnancy; Z77.22 Contact with and (suspected) exposure to environmental tobacco smoke (acute) (chronic); Z98.890 Other specified postprocedural states
CPT/HCPCS: 36415; 76801; 76817; 80048; 81000; 84702; 84703; 85025; 86900; 86901; 87077; 87088; 87186

== ENCOUNTER 2019-03-25 13:00 | Emergency (ER) | payer MEDICAID ==
[~2019-03-25] VITALS: Ht 175.3 cm; Wt 97.5 kg
[~2019-03-25 13:00] MED LIST changes: +CEPH-507 PO; +HYDR-4226 PO
[2019-03-25] MEDS ORDERED: ALPR0.5T PO (13:11)
[2019-03-25] MEDS ORDERED: DEXT10TA9 PO (13:11)
[2019-03-25 13:24] LABS: BILIRUBIN,URINE NEGATIVE (NEGATIVE); CLARITY,URINE CLEAR; COLOR,URINE YELLOW; GLUCOSE, URINE (UA) NEGATIVE (NEGATIVE); KETONES,URINE 1+ (NEGATIVE); LEUKOCYTE ESTERASE ,URINE 2+ (NEGATIVE); NITRITE,URINE POSITIVE (NEGATIVE); PH,URINE 6 (5-9); PROTEIN,URINE 2+ (NEGATIVE); UROBILINOGEN,URINE 1 MG/DL (NORMAL)
--- NOTE | 2019-03-25 13:24 | ED Back Pain ---
General Chief Complaint: Back Problems Stated Complaint: BACK PAIN Nursing Triage Note: has kind of like a knot in her back, any kind of lifting or pressure almost brings her to her knees, feels like it is in the area where she had her epidural when she had kids, has hx of these same symptoms Nursing Sepsis Screen: No Definite Risk Source of Information: Patient History of Present Illness Date Seen by Provider: Mar 25, 2019 Time Seen by Provider: 13:15 Initial Comments PT ARRIVES VIA POV C/O LEFT FLANK PAIN FOR A COUPLE OF DAYS, WORSE TODAY STATES AREA HURTS TO TOUCH, BEND OR LIFT ANYTHING --STATES "IT BRINGS ME TO TEARS OR TO MY KNEES" TOOK 800 MG IBUPROFEN LAST PM AND 500 MG TYLENOL THIS AM NO INJURY NO RADIATION OF PAIN NO PARESTHESIAS OR MOTOR DEFICITS NO PROBLEMS URINATING NO FEVER NO NAUSEA/VOMITING NO RASH HAS HISTORY OF BACK PROBLEMS, AND THIS IS SIMILAR LMP 03/21/19--HAS MIRENA IUD IN PLACE. Other Comments PCP: [facility], LISA MORRIS Allergies and Home Medications Allergies Coded Allergies: No Known Drug Allergies (Verified , 11/14/16) Home Medications Cephalexin 250 Mg Capsule, 500 MG PO QID Prescribed by: JASWINDER SPARROW on 11/24/16750 Cephalexin 500 Mg Capsule, 500 MG PO TID Prescribed by: YAS GONZALEZ on 06/10/171952 Cephalexin 500 Mg Capsule, 500 MG PO TID Prescribed by: ROMINA LEDESMA on 09/19/18 2202 Cyclobenzaprine HCl 10 Mg Tablet, 10 MG PO Q8H PRN for SPASMS Prescribed by: YAS GONZALEZ on 06/10/171952 Cyclobenzaprine HCl 10 Mg Tablet, 10 MG PO Q8H Prescribed by: AARON RYAN on 03/25/19 1343 Docusate Sodium 100 Mg Capsule, 100 MG PO BID Prescribed by: JASWINDER SPARROW on 11/24/16 075 Hydrocodone/Acetaminophen 1 Each Tablet, 1 EACH PO Q6H PRN for PAIN-MODERATE Prescribed by: ROMINA LEDESMA on 09/19/182156 Ibuprofen 800 Mg Tablet, 800 MG PO Q6H Prescribed by: JASWINDER SPARROW on 11/24/16 075 Naproxen 500 Mg Tablet, 500 MG PO BID PRN for pain Prescribed by: YAS GONZALEZ on 06/10/171952 Naproxen 500 Mg Tablet, 500 MG PO BID Prescribed by: AARON RYAN on 03/25/19 134 Nitrofurantoin Monohyd/M-Cryst 100 Mg Capsule, 100 MG PO BID Prescribed by: AARON RYAN on 03/25/191342 Omeprazole Magnesium 20 Mg Tablet.dr, 20 MG PO DAILY, (Reported) Oxycodone HCl/Acetaminophen 1 Each Tablet, 1-2 TAB PO Q4H PRN for PAIN Prescribed by: JASWINDER SPARROW on 11/24/16 0751 Phenazopyridine HCl 200 Mg Tablet, 1 TAB PO Q8H PRN for pain Prescribed by: YAS GONZALEZ on 06/10/171952 Vit W-Ca,Fe,FA(<1 mg) 1 Each Tablet, 1 EACH PO DAILY, (Reported) Patient Home Medication List Home Medication List Reviewed: Yes Review of Systems Constitutional: no symptoms reported Gastrointestinal: no symptoms reported Genitourinary: no symptoms reported : No LMP: Mar 21, 2019 Control/STD Prophylaxis: IUD Musculoskeletal: see HPI, back pain Skin: no symptoms reported; No rash Psychiatric/Neurological: No Symptoms Reported Past Nccqklz-Ssomoz-Umnqgm Hx Patient Social History Alcohol Use: Denies Use Recreational Drug Use: No Smoking Status: Current Everyday Smoker Type Used: Cigarettes 2nd Hand Smoke Exposure: Yes Recent Foreign Travel: No Contact w/Someone Who Travel: No Recent Infectious Disease Expo: No Recent Hopitalizations: No Immunizations Up To Date Tetanus Booster (TDap): Unknown Date of Influenza Vaccine: Sep 17, 2016 Seasonal Allergies Seasonal Allergies: No Past Medical History Surgeries: Yes Section, Gallbladder Respiratory: No Cardiac: No Neurological: No : No Last Menstrual Period: Mar 21, 2019 Reproductive Disorders: No 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 0.2oz. 97.393350bl; 38.6 BMI Method:Stated General Appearance: No Apparent Distress, WD/WN, Other (TEXTING ON PHONE) Neck: Full Range of Motion, Normal Inspection, Non Tender, Supple Cardiovascular: Regular Rate, Rhythm, Normal Peripheral Pulses Respiratory: Normal Breath Sounds Gastrointestinal: Non Tender, Soft Back: No Vertebral Tenderness, CVA Tenderness (L) Extremity: Normal Inspection Neurologic/Psychiatric: Alert, Oriented x3, No Motor/Sensory Deficits, Normal Mood/Affect, ui engineer II-XII Norm as Tested Skin: Normal Color, Warm/Dry; No Rash; Tattoos/Piercings (TATTOOS) Progress/Results/Core Measures Results/Orders Lab Results Laboratory Tests Test 03/25/19 13:14 Range/Units Urine Color YELLOW Urine Clarity CLEAR Urine pH 6 5-9 Urine Specific [place] 1.020 1.016-1.022 Urine Protein 2+ H NEGATIVE Urine Glucose (UA) NEGATIVE NEGATIVE Urine Ketones 1+ H NEGATIVE Urine Nitrite POSITIVE H NEGATIVE Urine Bilirubin NEGATIVE NEGATIVE Urine Urobilinogen 1 NORMAL MG/DL Urine Leukocyte Esterase 2+ H NEGATIVE Urine RBC (Auto) NEGATIVE NEGATIVE Urine RBC NONE /HPF Urine WBC 50-100 H /HPF Urine Squamous Epithelial Cells 2-5 /HPF Urine Crystals NONE /LPF Urine Bacteria LARGE H /HPF Urine Casts NONE /LPF Urine Mucus SMALL H /LPF Urine Culture Indicated YES Urine Test NEGATIVE NEGATIVE My Orders Orders - AARON RYAN DO Hcg,Qualitative Urine (03/25/19 13:18) Ua Culture If Indicated (03/25/19 13:18) Urine Culture (03/25/19 13:14) Ketorolac Injection (Toradol Injection) (03/25/19 14:00) Ceftriaxone For Im Use (Rocephin For Im (03/25/19 14:00) Lidocaine 1% Inj 20 Ml (Xylocaine 1% Inj (03/25/19 14:00) Vital Signs/I&O 03/25/19 13:03 Temp 97.8 Pulse 82 Resp 18 B/P (MAP) 124/59 (80) Blood Pressure Mean: 80 Departure Impression Primary Impression: Urinary tract infection Disposition: 01 HOME, SELF-CARE Condition: Stable Departure-Patient Inst. Referrals: [facility] (PCP) Primary Care Physician ROBERT MORRIS (Family) Primary Care Physician Patient Instructions: Urinary Tract Infection, Adult (DC) Add. Discharge Instructions: LOTS OF CLEAR LIQUIDS TYLENOL 1 GRAM 4 TIMES A DAY NEEDED FOR PAIN FOLLOW UP WITH YOUR DR NEXT WEEK FOR RECHECK All discharge instructions reviewed with patient and/or family. Voiced understanding. Scripts Cyclobenzaprine HCl (Cyclobenzaprine HCl) 10 Mg Tablet 10 MG PO Q8H, #15 TAB Prov: AARON RYAN DO 03/25/19 Naproxen (Naproxen) 500 Mg Tablet 500 MG PO BID, #20 TAB Prov: AARON RYAN DO 03/25/19 Nitrofurantoin Monohyd/M-Cryst (Macrobid 100 mg Capsule) 100 Mg Capsule 100 MG PO BID, #20 CAP Prov: AARON RYAN DO 03/25/19 AARON RYAN DO Mar 25, 2019 13:24
[2019-03-25 13:32] LABS: BACTERIA,URINE LARGE /HPF; WBC,URINE 50-100 /HPF
[2019-03-25] MEDS ORDERED: NAPR-915 PO (13:43)
[2019-03-25] MEDS ORDERED: CYCL10TA9 PO (13:43)
[2019-03-25] MEDS ORDERED: NITR-65 PO (13:43)
[2019-03-25] MEDS ORDERED: cefTRIAXone 1,000 MG/2.86 ml vial (IM ONLY) IM SCH (14:00)
[2019-03-25] MEDS ORDERED: KETOROLAC 60 MG/2 ML VIAL IM ONE (14:00)
[2019-03-25] MEDS ORDERED: LIDOCAINE 1% INJ 20 ML 20 ML VIAL INJ ONE (14:00)
[2019-03-25 14:18] VITALS: BP 124/59
== END 2019-03-25 14:18 | disposition home or self-care (01) ==
LOC: EDUNIT# 13:00 → ER 13:02
DX: N39.0 Urinary tract infection, site not specified (principal); F90.9 Attention-deficit hyperactivity disorder, unspecified type; F41.9 Anxiety disorder, unspecified; F32.9 Major depressive disorder, single episode, unspecified; F17.210 Nicotine dependence, cigarettes, uncomplicated
CPT/HCPCS: 81000; 84703; 87077; 87088; 87186; 96372; 99284